=== PATIENT | male | born 1960 | race Caucasian/White ===

== ENCOUNTER 2019-08-29 00:39 | Inpatient (IN) | payer OTHER ==
[2019-08-29] VITALS (9 sets, daily range): BP systolic 122–150; BP diastolic 68–88
[~2019-08-29] VITALS: Ht 162.6 cm; Wt 74.4 kg
[2019-08-29 01:12] LABS: BASO % 0 % (0-3); EOS # 0.1 x10^3/uL (0.0-0.7); EOS % 1 % (0-3); HEMATOCRIT 43.5 % (39.0-53.0); HEMOGLOBIN 14.6 g/dL (13.0-17.5); LYMPH # 5.4 x10^3/uL (1.0-4.8); LYMPH % 56 % (24-48); MEAN CORPUSCULAR HEMOGLOBIN 34 pg (25-35); MEAN CORPUSCULAR HGB CONC 34 g/dL (31-37); MEAN CORPUSCULAR VOLUME 102 fL (79-100); MONO # 0.8 x10^3/uL (0.0-1.1); MONO % 9 % (0-9); NEUT # 3.3 x10^3/uL (1.8-7.7); NEUT % 34 % (31-73); PLATELET COUNT 302 x10^3/uL (140-400); RED BLOOD COUNT 4.28 x10^6/uL (4.30-5.70); RED CELL DISTRIBUTION WIDTH 13.2 % (11.5-14.5); WHITE BLOOD COUNT 9.7 x10^3/uL (4.0-11.0)
[2019-08-29 01:20] LABS: CALCIUM 8.5 mg/dL (8.5-10.1); POTASSIUM 3.8 mmol/L (3.5-5.1); PROTHROMBIN TIME PATIENT 13.8 SEC (11.7-14.0)
[2019-08-29 01:23] LABS: ACETAMIN < 2 mcg/ml (10-30); SALIC 3.5 mg/dL (2.8-20.0)
[2019-08-29 01:28] LABS: ALBUMIN 3.4 g/dL (3.4-5.0); ALBUMIN/GLOBULIN RATIO 0.8 (1.0-1.7); MAGNESIUM 1.5 mg/dL (1.8-2.4); TOTAL BILIRUBIN 0.3 mg/dL (0.2-1.0); TOTAL PROTEIN 7.5 g/dL (6.4-8.2)
[2019-08-29 01:33] LABS: CREATINE KINASE 63 U/L (39-308)
--- NOTE | 2019-08-29 01:49 | PHYS DOC ---
Past Medical History Past Medical History: Other Additional Past Medical Histor: HEP C Past Surgical History: No Surgical History Smoking: Cigarettes Alcohol Use: Heavy Drug Use: Marijuana Adult General Chief Complaint Chief Complaint: MECHANICAL FALL HPI HPI 59-year-old male presents via EMS with report of "slip and fall on ice "outside of his home just prior to arrival. Patient was "unable to get back up ". Patient reports he was helped by his roommate to noted abrasion to right forehead. Roommate was concerned and therefore called EMS. Patient does report to drinking 8 beers daily for several years. Reports last drank at 1800. Denies history of DTs. Reports unsure when last tetanus booster was. Patient also reports right sided chest wall pain since fall which is worse with deep inspiration and palpation of chest. Patient also reports daily suicidal ideation. Reports history of spouse recently passing away. Reports he drinks because it helps "make him want to live." Review of Systems Review of Systems Constitutional: Denies fever or chills Eyes: Denies redness or eye pain HENT: Denies nasal congestion or sore throat Respiratory: Denies cough or shortness of breath Cardiovascular: Denies chest pain or palpitations GI: Denies abdominal pain, nausea, or vomiting : Denies dysuria or hematuria Musculoskeletal: Denies back pain or joint pain Integument: Denies rash; reports abrasion Neurologic: Reports headache; denies focal weakness or sensory changes Psychiatric: Reports suicidal ideation and chronic EtOH abuse Complete systems were reviewed and found to be within normal limits, except as documented in this note. Current Medications Current Medications Current Medications Medications (Trade) Dose Ordered Sig/Nolan Start Time Stop Time Status Last Admin Dose Admin Lorazepam (Ativan Inj) 0.5 mg 1X ONCE 08/29/19 01:30 08/29/19 01:31 DC 08/29/19 02:57 0.5 MG Allergies Allergies Allergies Coded Allergies Type Severity Reaction Last Updated Verified acetaminophen Adverse Reaction Intermediate has hepatitis C 09/18/14 Yes Physical Exam Physical Exam Constitutional: Well developed, well nourished, non-toxic appearance HENT: Normocephalic, atraumatic, oropharynx moist Eyes: PERRL, EOMI, conjunctiva normal, no discharge, horizontal nystagmus noted Neck: Normal range of motion, no midline tenderness, supple Cardiovascular: Heart rate normal, regular rhythm Lungs & Thorax: Bilateral breath sounds clear to auscultation, no wheezing, right upper anterior and lateral chest wall tenderness Abdomen: Soft, no tenderness; pelvis stable and nontender Skin: Warm, dry, no erythema, no rash, abrasion to right forehead Back: No midline tenderness, no CVA tenderness Extremities: No tenderness, ROM intact, no edema Neurologic: Alert and oriented X 3, normal motor function, normal sensory function, no focal deficits noted, resting tremor noted to bilateral arms Psychologic: Affect flat, judgement abnormal, reports suicidal ideation Current Patient Data Vital Signs Vital Signs Date Time Temp Pulse Resp B/P (MAP) Pulse Ox O2 Delivery O2 Flow Rate FiO2 08/29/19 00:42 97.4 95 20 137/63 (87) 98 Room Air 97.4 Lab Values Laboratory Tests Test 08/29/19 00:45 White Blood Count 9.7 x10^3/uL (4.0-11.0) Red Blood Count 4.28 x10^6/uL (4.30-5.70) L Hemoglobin 14.6 g/dL (13.0-17.5) Hematocrit 43.5 % (39.0-53.0) Mean Corpuscular Volume 102 fL (79-100) H Mean Corpuscular Hemoglobin 34 pg (25-35) Mean Corpuscular Hemoglobin Concent 34 g/dL (31-37) Red Cell Distribution Width 13.2 % (11.5-14.5) Platelet Count 302 x10^3/uL (140-400) Neutrophils (%) (Auto) 34 % (31-73) Lymphocytes (%) (Auto) 56 % (24-48) H Monocytes (%) (Auto) 9 % (0-9) Eosinophils (%) (Auto) 1 % (0-3) Basophils (%) (Auto) 0 % (0-3) Neutrophils # (Auto) 3.3 x10^3/uL (1.8-7.7) Lymphocytes # (Auto) 5.4 x10^3/uL (1.0-4.8) H Monocytes # (Auto) 0.8 x10^3/uL (0.0-1.1) Eosinophils # (Auto) 0.1 x10^3/uL (0.0-0.7) Basophils # (Auto) 0.0 x10^3/uL (0.0-0.2) Segmented Neutrophils % 39 % (35-66) Band Neutrophils % 1 % (0-9) Lymphocytes % 51 % (24-48) H Atypical Lymphocytes % (Manual) 4 % (0-0) H Monocytes % 4 % (0-10) Eosinophils % 1 % (0-5) Platelet Estimate Adequate (ADEQUATE) Prothrombin Time 13.8 SEC (11.7-14.0) Prothrombin Time INR 1.1 (0.8-1.1) Sodium Level 141 mmol/L (136-145) Potassium Level 3.8 mmol/L (3.5-5.1) Chloride Level 101 mmol/L (98-107) Carbon Dioxide Level 27 mmol/L (21-32) Anion Gap 13 (6-14) Blood Urea Nitrogen 6 mg/dL (8-26) L Creatinine 1.0 mg/dL (0.7-1.3) Estimated GFR (Cockcroft-Gault) 76.0 BUN/Creatinine Ratio 6 (6-20) Glucose Level 110 mg/dL (70-99) H Calcium Level 8.5 mg/dL (8.5-10.1) Magnesium Level 1.5 mg/dL (1.8-2.4) L Total Bilirubin 0.3 mg/dL (0.2-1.0) Aspartate Amino Transferase (AST) 80 U/L (15-37) H Alanine Aminotransferase (ALT) 86 U/L (16-63) H Alkaline Phosphatase 60 U/L (46-116) Creatine Kinase 63 U/L (39-308) Creatine Kinase MB (Mass) 2.3 ng/mL (0.0-3.6) Creatine Kinase MB Relative Index % (0-4) Troponin I Quantitative < 0.017 ng/mL (0.000-0.055) TT-Vet-D-Type Natriuretic Peptide 313 pg/mL (0-124) H Total Protein 7.5 g/dL (6.4-8.2) Albumin 3.4 g/dL (3.4-5.0) Albumin/Globulin Ratio 0.8 (1.0-1.7) L Lipase 144 U/L (73-393) Salicylates Level 3.5 mg/dL (2.8-20.0) Salicylate Last Dose Date Unk Salicylate Last Dose Time Unk Acetaminophen Level < 2 mcg/ml (10-30) L Acetaminophen Last Dose Date Unk Acetaminophen Last Dose Time Unk Ethyl Alcohol Level 281 mg/dL (0-10) H Laboratory Tests 08/29/19 00:45 Laboratory Tests 08/29/19 00:45 EKG EKG @0216 Sinus tachycardia at 103bpm, NO ST elevation, frequent PVCs, QRS 76ms, QT/QTc 346/455ms Radiology/Procedures Radiology/Procedures PROCEDURE: CT HEAD AND CERVICAL SPINE WO CT HEAD AND CERVICAL SPINE WO Date: 08/29/2019 1:49 AM Clinical Indication: Scalp contusion, altered mental status, intoxicated Comparison: None. Technique: 5 mm axial tomographic images were obtained of the head without contrast. These were viewed on brain and bone windows. Noncontrast CT of the cervical spine was performed. Sagittal and coronal reformats were performed and evaluated. One or more of the following dose reduction techniques were utilized: Automated exposure control (AEC), Adjustment of mA and/or kV according to patient size, Use of iterative reconstruction technique such as ASiR, CT scan done according to ALARA and image gently/image wisely HEAD FINDINGS: Mild generalized cerebral and cerebellar volume loss. Mild nonspecific periventricular hypoattenuation, most commonly seen with chronic small vessel ischemic disease. No intra- or extra-axial mass or fluid collection. No acute hemorrhage. The ventricles are normal in size, shape, and morphology. The thomas-white matter junction is normal. The basilar cisterns are patent. The visualized paranasal sinuses are normal. The visualized portions of the orbits and globes are normal. The mastoid air cells are clear. No aggressive osseous lesion or fracture. CERVICAL SPINE FINDINGS: The cervical spine is normally aligned. No acute fracture. No aggressive lytic or blastic osseous lesions. Moderate multilevel degenerative disc space height loss. Multilevel mild spinal canal stenosis secondary to disc protrusions and marginal osteophytes. Multilevel moderate to severe neuroforaminal narrowing secondary to uncovertebral arthrosis. Multilevel mild and moderate facet arthrosis. The thyroid gland is normal. No cervical lymphadenopathy. Bilateral carotid atherosclerosis. The visualized aerodigestive tract is normal. The visualized portions of the lungs are clear. IMPRESSION: 1. No acute intracranial process. 2. No acute cervical spine fracture. Electronically signed by: Hardeep Bertrand MD (08/29/2019 2:27 AM) [facility] PROCEDURE: CT CHEST W/CONTRAST CT CHEST W/CONTRAST INDICATION: Fall, right sided chest pain. Comparison: None. TECHNIQUE: Following the uneventful administration of intravenous contrast, 75 cc Omnipaque 300, axial CT sections were obtained through the lungs and upper abdomen. Multiplanar reconstructions were obtained. RS compliance statement: One or more of the following individualized dose reduction techniques were utilized for this examination: 1. Automated exposure control 2. Adjustment of the mA and/or kV according to patient size 3. Use of iterative reconstruction technique FINDINGS: Lungs and Airways: No pulmonary mass or consolidation. No abnormality of the central airways. Pleura: The pleural spaces are normal. Heart and Mediastinum: The visualized thyroid is normal in size and attenuation. No axillary or supraclavicular lymphadenopathy. No mediastinal, hilar or retrocrural lymphadenopathy. Normal cardiac size. No pericardial effusion. Coronary artery atherosclerotic disease. The great vessels of the thorax are normal. Abdomen: Limited images through the upper abdomen show no abnormality of the visualized organs. Bones and Soft Tissues: Minimally displaced right anterolateral fourth rib fracture. Nondisplaced right 2nd, 3rd, 5th, 6th, and 7th rib fractures. IMPRESSION: 1. Minimally displaced right 4th rib fracture. Nondisplaced right 2nd, 3rd, 5th, 6th, and 7th rib fractures. No pneumothorax. 2. No major traumatic intrathoracic injury. Electronically signed by: Hardeep Bertrand MD (08/29/2019 2:42 AM) [facility] Course & Med Decision Making Course & Med Decision Making Pertinent Labs and Imaging studies reviewed. (See chart for details) Patient presents via EMS with history of chronic EtOH abuse. Patient was mec hanical fall on ice outside of his home prior to arrival. Patient did sustain a abrasion to his right forehead. Patient denied any loss of consciousness. Wound cleaned and dressed. Tetanus updated. EKG without signs of ischemia but notes frequent PVCs. Labs obtained and posted to chart. EtOH greater then 200. Patient did start to display some increased tremulousness. Ativan given. Hypomagnesemia addressed. Banana bag provided. Patient also complaining of right-sided chest pain. CT head/cervical spine without acute process. CT chest with signs of multiple rib fractures without pulmonary contusion. Patient does report some suicidal ideation. Given concern for chronic alcoholism and possible impending DTs patient requiring medical admission. Patient requiring admission for further evaluation and treatment. Discussed with Dr. Angel (hospitalist) who is in agreement with admission. Discussed findings and plan with patient, who acknowledges understanding and agreement. Dragon Disclaimer Dragon Disclaimer This electronic medical record was generated, in whole or in part, using a voice recognition dictation system. Departure Departure Impression: Primary Impression: Suicidal ideation Additional Impressions: Alcohol abuse Chest pain Head contusion Rib fracture Disposition: 09 ADMITTED INPATIENT Admitting Physician: NADEEM Hein) Condition: STABLE Referrals: NO PCP (PCP) Problem Qualifiers Additional Impressions: Chest pain Chest pain type: unspecified Qualified Codes: R07.9 - Chest pain, unspecified Head contusion Encounter type: initial encounter Contusion of head detail: scalp Qualified Codes: S00.03XA - Contusion of scalp, initial encounter Rib fracture Encounter type: initial encounter Rib fracture type: multiple ribs Frac ture type: closed Laterality: right Qualified Codes: S22.41XA - Multiple fractures of ribs, right side, initial encounter for closed fracture SANGEETA SANDERSON DO Aug 29, 2019 01:49
[2019-08-29 01:53] LABS: % ATYL 4 % (0-0); % BANDS 1 % (0-9); % EOS 1 % (0-5); % LYMPHS 51 % (24-48); % MONOS 4 % (0-10); % SEGS 39 % (35-66); PLT ESTIMATE ADEQUATE (ADEQUATE)
[2019-08-29] MEDS ORDERED: MAGNESIUM SULFATE 2GM 50 ML IV ONE (02:00)
[2019-08-29] MEDS ORDERED: MULTIVIT INFUSN,ADULT 4,VIT K 10 ML, THIAMINE INJ 100 MG, FOLIC ACID INJ 1 MG in IV NOR... IV ONE (02:00)
[2019-08-29] MEDS ORDERED: CONTRAST GIVEN. MC PRN (02:15)
[2019-08-29] MEDS ORDERED: ONDANSETRON PF 4 MG/2 ML VIAL. IV PRN (02:15)
[2019-08-29] MEDS ORDERED: DIPHTH,PERTUSS(ACELL),TET TOX 0.5 ML DISP.SYRIN. VAX IM ONE (02:30)
[2019-08-29] MEDS ORDERED: IOHEXOL 300 MG/ML 100ML VIAL. IV ONE (02:30)
--- NOTE | 2019-08-29 02:30 | RAD ---
CT HEAD AND CERVICAL SPINE WO Date: 08/29/2019 1:49 AM Clinical Indication: Scalp contusion, altered mental status, intoxicated Comparison: None. Technique: 5 mm axial tomographic images were obtained of the head without contrast. These were viewed on brain and bone windows. Noncontrast CT of the cervical spine was performed. Sagittal and coronal reformats were performed and evaluated. One or more of the following dose reduction techniques were utilized: Automated exposure control (AEC), Adjustment of mA and/or kV according to patient size, Use of iterative reconstruction technique such as ASiR, CT scan done according to ALARA and image gently/image wisely HEAD FINDINGS: Mild generalized cerebral and cerebellar volume loss. Mild nonspecific periventricular hypoattenuation, most commonly seen with chronic small vessel ischemic disease. No intra- or extra-axial mass or fluid collection. No acute hemorrhage. The ventricles are normal in size, shape, and morphology. The thomas-white matter junction is normal. The basilar cisterns are patent. The visualized paranasal sinuses are normal. The visualized portions of the orbits and globes are normal. The mastoid air cells are clear. No aggressive osseous lesion or fracture. CERVICAL SPINE FINDINGS: The cervical spine is normally aligned. No acute fracture. No aggressive lytic or blastic osseous lesions. Moderate multilevel degenerative disc space height loss. Multilevel mild spinal canal stenosis secondary to disc protrusions and marginal osteophytes. Multilevel moderate to severe neuroforaminal narrowing secondary to uncovertebral arthrosis. Multilevel mild and moderate facet arthrosis. The thyroid gland is normal. No cervical lymphadenopathy. Bilateral carotid atherosclerosis. The visualized aerodigestive tract is normal. The visualized portions of the lungs are clear. IMPRESSION: 1. No acute intracranial process. 2. No acute cervical spine fracture. Electronically signed by: Hardeep Bertrand MD (08/29/2019 2:27 AM) [facility]
--- NOTE | 2019-08-29 02:45 | RAD ---
CT CHEST W/CONTRAST INDICATION: Fall, right sided chest pain. Comparison: None. TECHNIQUE: Following the uneventful administration of intravenous contrast, 75 cc Omnipaque 300, axial CT sections were obtained through the lungs and upper abdomen. Multiplanar reconstructions were obtained. RS compliance statement: One or more of the following individualized dose reduction techniques were utilized for this examination: 1. Automated exposure control 2. Adjustment of the mA and/or kV according to patient size 3. Use of iterative reconstruction technique FINDINGS: Lungs and Airways: No pulmonary mass or consolidation. No abnormality of the central airways. Pleura: The pleural spaces are normal. Heart and Mediastinum: The visualized thyroid is normal in size and attenuation. No axillary or supraclavicular lymphadenopathy. No mediastinal, hilar or retrocrural lymphadenopathy. Normal cardiac size. No pericardial effusion. Coronary artery atherosclerotic disease. The great vessels of the thorax are normal. Abdomen: Limited images through the upper abdomen show no abnormality of the visualized organs. Bones and Soft Tissues: Minimally displaced right anterolateral fourth rib fracture. Nondisplaced right 2nd, 3rd, 5th, 6th, and 7th rib fractures. IMPRESSION: 1. Minimally displaced right 4th rib fracture. Nondisplaced right 2nd, 3rd, 5th, 6th, and 7th rib fractures. No pneumothorax. 2. No major traumatic intrathoracic injury. Electronically signed by: Hardeep Bertrand MD (08/29/2019 2:42 AM) [facility]
--- NOTE | 2019-08-29 03:15 | NUR ---
The patient, HILARIA AYON, 59 y/o, M admitted by NICANOR MEJIA MD, was given written information regarding hospital policies, unit procedures and contact persons. Valuables were checked and left in the room.
[2019-08-29] MEDS ORDERED: oxyCODONE/APAP 5/325 1 TAB TABLET PO PRN (05:30)
--- NOTE | 2019-08-29 06:34 | EKG ---
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
[2019-08-29] MEDS: oxyCODONE IR 5 MG TABLET PO PRN ×3 (08:45→21:38)
--- NOTE | 2019-08-29 10:19 | PDOC1 ---
History and Physical Date of Admission Date of Admission DATE: 08/29/19 TIME: 10:18 Identification/Chief Complaint Chief Complaint seen in er , 59-year-old male presents via EMS with report of "slip and fall on ice "outside of his home just prior to arrival. Patient was "unable to get back up ". Patient reports he was helped by his roommate to noted abrasion to right forehead. Roommate was concerned and therefore called EMS. Patient does report to drinking 8 beers daily for several years. Reports last drank at 1800. Denies history of DTs. Reports unsure when last tetanus booster was. Patient also reports right sided chest wall pain since fall which is worse with deep inspir ation and palpation of chest reports daily suicidal ideation. Reports history of spouse recently passing away. Reports he drinks because it helps "make him want to live." PAT TEAM HAS VISITED, PT NOT ACTIVELY SUICIDAL Past Medical History Past Medical History Past Medical History Past Medical History Past Medical History: Other Additional Past Medical Histor: HEP C Past Surgical History: No Surgical History Smoking: Cigarettes Alcohol Use: Heavy Drug Use: Marijuana fhx COPD Psych: Addictions Musculoskeletal: Weakness Infectious disease: No pertinent hx Family History Family History: Alcohol Abuse Social History Smoke: <1 pack per day ALCOHOL: heavy Drugs: None Current Problem List Problem List Problems Medical Problems: (1) Alcohol abuse Status: Acute (2) Chest pain Status: Acute (3) Head contusion Status: Acute (4) Rib fracture Status: Acute (5) Suicidal ideation Status: Acute Current Medications Current Medications Current Medications Lorazepam (Ativan Inj) 2 mg STK-MED ONCE .ROUTE ; Start 08/29/19 at 00:55; Stop 08/29/19 at 00:55; Status DC Multivitamins 10 ml/Thiamine HCl 100 mg/Folic Acid 1 mg/Sodium Chloride 1,011.2 ml @ 1,000.088 mls/hr 1X ONCE IV Last administered on 08/29/19at 01:56; Start 08/29/19 at 02:00; Stop 08/29/19 at 03:00; Status DC Lorazepam (Ativan Inj) 0.5 mg 1X ONCE IVP Last administered on 08/29/19at 01:45; Start 08/29/19 at 01:30; Stop 08/29/19 at 01:31; Status DC Lorazepam (Ativan Inj) 0.5 mg 1X ONCE IVP Last administered on 08/29/19at 02:57; Start 08/29/19 at 01:30; Stop 08/29/19 at 01:31; Status DC Magnesium Sulfate 50 ml @ 25 mls/hr 1X ONCE IV Last administered on 08/29/19at 03:00; Start 08/29/19 at 02:00; Stop 08/29/19 at 03:59; Status DC Diphtheria/ Tetanus/Acell Pertussis (Boostrix) 0.5 ml ONCE ONCE VAX IM Last administered on 08/29/19at 02:54; Start 08/29/19 at 02:30; Stop 08/29/19 at 02:31; Status DC Iohexol (Omnipaque 300 Mg/ml) 75 ml 1X ONCE IV ; Start 08/29/19 at 02:30; Stop 08/29/19 at 02:31; Status DC Info (CONTRAST GIVEN -- Rx MONITORING) 1 each PRN DAILY PRN MC SEE COMMENTS; Start 08/29/19 at 02:15; Stop 08/31/19 at 02:14 Ondansetron HCl (Zofran) 4 mg PRN Q8HRS PRN IV NAUSEA/VOMITING 1ST CHOICE; Start 08/29/19 at 02:15; Stop 08/30/19 at 02:14 Lorazepam (Ativan Inj) 1 mg PRN Q1HR PRN IV For CIWA 8-14; Start 08/29/19 at 02:15 Lorazepam (Ativan Inj) 2 mg PRN Q1HR PRN IV For CIWA 15 or greater Last administered on 08/29/19at 06:42; Start 08/29/19 at 02:15 Oxycodone/ Acetaminophen (Percocet 5/325) 1 tab PRN Q4HRS PRN PO PAIN; Start 08/29/19 at 05:30; Status Cancel Oxycodone HCl (Roxicodone) 5 mg PRN Q6HRS PRN PO PAIN Last administered on 08/29/19at 08:45; Start 08/29/19 at 08:30 Active Scripts Active Reported No Known Medications Prior To Admisstion (Info) Each 1 Each MC Allergies Allergies: Coded Allergies: acetaminophen (Verified Adverse Reaction, Intermediate, has hepatitis C, 09/18/14) ROS Review of System Review of Systems Review of Systems Constitutional: Denies fever or chills Eyes: Denies redness or eye pain HENT: Denies nasal congestion or sore throat Respiratory: Denies cough or shortness of breath Cardiovascular: chest WALL pain GI: Denies abdominal pain, nausea, or vomiting : Denies dysuria or hematuria Musculoskeletal: Denies back pain or joint pain Integument: Denies rash; reports abrasion Neurologic: Reports headache; denies focal weakness or sensory changes Psychiatric: Reports suicidal ideation and chronic EtOH abuse 14 PT systems were reviewed and found to be within normal limits, except as documented Gastrointestinal: No Nausea, No Vomiting, No Abdominal Pain, No Diarrhea, No Constipation, No Melena, No Hematochezia, No Other Physical Exam Physical Exam Physical Exam Physical Exam Constitutional: Well developed, well nourished, non-toxic appearance HENT: Normocephalic, atraumatic, oropharynx moist Eyes: PERRL, EOMI, conjunctiva normal, no discharge, horizontal nystagmus noted Neck: Normal range of motion, no midline tenderness, supple Cardiovascular: Heart rate normal, regular rhythm Lungs & Thorax: Bilateral breath sounds clear to auscultation, no wheezing,/// right upper anterior and lateral chest wall tenderness Abdomen: Soft, no tenderness; pelvis stable and nontender Skin: Warm, dry, no erythema, no rash, abrasion to right forehead Back: No midline tenderness, no CVA tenderness Extremities: No tenderness, ROM intact, no edema Neurologic: Alert and oriented X 3, normal motor function, normal sensory function, no focal deficits noted, resting tremor noted to bilateral arms Psychologic: Affect flat, judgement abnormal, reports suicidal ideation LAST NIGHT, NOT NOW General: Alert, Oriented X3, Cooperative HEENT: EOMI, Mucous membr. moist/pink Lungs: Clear to auscultation Heart: RRR Rectal Exam: not examined PELVIC: Examination not indicated Extremities: No cyanosis Neuro: Cranial nerves 3-12 NL Vitals Vitals Vital Signs Date Time Temp Pulse Resp B/P (MAP) Pulse Ox O2 Delivery O2 Flow Rate FiO2 08/29/19 08:45 96 Room Air 08/29/19 06:55 92 18 122/71 (88) 08/29/19 04:58 98.1 98.1 Labs Labs Laboratory Tests Test 08/29/19 00:45 08/29/19 05:12 08/29/19 08:00 White Blood Count 9.7 x10^3/uL (4.0-11.0) Red Blood Count 4.28 x10^6/uL (4.30-5.70) Hemoglobin 14.6 g/dL (13.0-17.5) Hematocrit 43.5 % (39.0-53.0) Mean Corpuscular Volume 102 fL (79-100) Mean Corpuscular Hemoglobin 34 pg (25-35) Mean Corpuscular Hemoglobin Concent 34 g/dL (31-37) Red Cell Distribution Width 13.2 % (11.5-14.5) Platelet Count 302 x10^3/uL (140-400) Neutrophils (%) (Auto) 34 % (31-73) Lymphocytes (%) (Auto) 56 % (24-48) Monocytes (%) (Auto) 9 % (0-9) Eosinophils (%) (Auto) 1 % (0-3) Basophils (%) (Auto) 0 % (0-3) Neutrophils # (Auto) 3.3 x10^3/uL (1.8-7.7) Lymphocytes # (Auto) 5.4 x10^3/uL (1.0-4.8) Monocytes # (Auto) 0.8 x10^3/uL (0.0-1.1) Eosinophils # (Auto) 0.1 x10^3/uL (0.0-0.7) Basophils # (Auto) 0.0 x10^3/uL (0.0-0.2) Segmented Neutrophils % 39 % (35-66) Band Neutrophils % 1 % (0-9) Lymphocytes % 51 % (24-48) Atypical Lymphocytes % (Manual) 4 % (0-0) Monocytes % 4 % (0-10) Eosinophils % 1 % (0-5) Platelet Estimate Adequate (ADEQUATE) Prothrombin Time 13.8 SEC (11.7-14.0) Prothromb Time International Ratio 1.1 (0.8-1.1) Sodium Level 141 mmol/L (136-145) Potassium Level 3.8 mmol/L (3.5-5.1) Chloride Level 101 mmol/L (98-107) Carbon Dioxide Level 27 mmol/L (21-32) Anion Gap 13 (6-14) Blood Urea Nitrogen 6 mg/dL (8-26) Creatinine 1.0 mg/dL (0.7-1.3) Estimated GFR (Cockcroft-Gault) 76.0 BUN/Creatinine Ratio 6 (6-20) Glucose Level 110 mg/dL (70-99) Calcium Level 8.5 mg/dL (8.5-10.1) Magnesium Level 1.5 mg/dL (1.8-2.4) Total Bilirubin 0.3 mg/dL (0.2-1.0) Aspartate Amino Transf (AST/SGOT) 80 U/L (15-37) Alanine Aminotransferase (ALT/SGPT) 86 U/L (16-63) Alkaline Phosphatase 60 U/L (46-116) Creatine Kinase 63 U/L (39-308) Creatine Kinase MB (Mass) 2.3 ng/mL (0.0-3.6) Creatine Kinase MB Relative Index % (0-4) Troponin I Quantitative < 0.017 ng/mL (0.000-0.055) < 0.017 ng/mL (0.000-0.055) < 0.017 ng/mL (0.000-0.055) UM-Ars-A-Type Natriuretic Peptide 313 pg/mL (0-124) Total Protein 7.5 g/dL (6.4-8.2) Albumin 3.4 g/dL (3.4-5.0) Albumin/Globulin Ratio 0.8 (1.0-1.7) Lipase 144 U/L (73-393) Salicylates Level 3.5 mg/dL (2.8-20.0) Salicylate Last Dose Date Unk Salicylate Last Dose Time Unk Acetaminophen Level < 2 mcg/ml (10-30) Acetaminophen Last Dose Date Unk Acetaminophen Last Dose Time Unk Ethyl Alcohol Level 281 mg/dL (0-10) Laboratory Tests Test 08/29/19 00:45 08/29/19 05:12 08/29/19 08:00 White Blood Count 9.7 x10^3/uL (4.0-11.0) Red Blood Count 4.28 x10^6/uL (4.30-5.70) Hemoglobin 14.6 g/dL (13.0-17.5) Hematocrit 43.5 % (39.0-53.0) Mean Corpuscular Volume 102 fL (79-100) Mean Corpuscular Hemoglobin 34 pg (25-35) Mean Corpuscular Hemoglobin Concent 34 g/dL (31-37) Red Cell Distribution Width 13.2 % (11.5-14.5) Platelet Count 302 x10^3/uL (140-400) Neutrophils (%) (Auto) 34 % (31-73) Lymphocytes (%) (Auto) 56 % (24-48) Monocytes (%) (Auto) 9 % (0-9) Eosinophils (%) (Auto) 1 % (0-3) Basophils (%) (Auto) 0 % (0-3) Neutrophils # (Auto) 3.3 x10^3/uL (1.8-7.7) Lymphocytes # (Auto) 5.4 x10^3/uL (1.0-4.8) Monocytes # (Auto) 0.8 x10^3/uL (0.0-1.1) Eosinophils # (Auto) 0.1 x10^3/uL (0.0-0.7) Basophils # (Auto) 0.0 x10^3/uL (0.0-0.2) Segmented Neutrophils % 39 % (35-66) Band Neutrophils % 1 % (0-9) Lymphocytes % 51 % (24-48) Atypical Lymphocytes % (Manual) 4 % (0-0) Monocytes % 4 % (0-10) Eosinophils % 1 % (0-5) Platelet Estimate Adequate (ADEQUATE) Prothrombin Time 13.8 SEC (11.7-14.0) Prothromb Time International Ratio 1.1 (0.8-1.1) Sodium Level 141 mmol/L (136-145) Potassium Level 3.8 mmol/L (3.5-5.1) Chloride Level 101 mmol/L (98-107) Carbon Dioxide Level 27 mmol/L (21-32) Anion Gap 13 (6-14) Blood Urea Nitrogen 6 mg/dL (8-26) Creatinine 1.0 mg/dL (0.7-1.3) Estimated GFR (Cockcroft-Gault) 76.0 BUN/Creatinine Ratio 6 (6-20) Glucose Level 110 mg/dL (70-99) Calcium Level 8.5 mg/dL (8.5-10.1) Magnesium Level 1.5 mg/dL (1.8-2.4) Total Bilirubin 0.3 mg/dL (0.2-1.0) Aspartate Amino Transf (AST/SGOT) 80 U/L (15-37) Alanine Aminotransferase (ALT/SGPT) 86 U/L (16-63) Alkaline Phosphatase 60 U/L (46-116) Creatine Kinase 63 U/L (39-308) Creatine Kinase MB (Mass) 2.3 ng/mL (0.0-3.6) Creatine Kinase MB Relative Index % (0-4) Troponin I Quantitative < 0.017 ng/mL (0.000-0.055) < 0.017 ng/mL (0.000-0.055) < 0.017 ng/mL (0.000-0.055) CV-Uqx-Y-Type Natriuretic Peptide 313 pg/mL (0-124) Total Protein 7.5 g/dL (6.4-8.2) Albumin 3.4 g/dL (3.4-5.0) Albumin/Globulin Ratio 0.8 (1.0-1.7) Lipase 144 U/L (73-393) Salicylates Level 3.5 mg/dL (2.8-20.0) Salicylate Last Dose Date Unk Salicylate Last Dose Time Unk Acetaminophen Level < 2 mcg/ml (10-30) Acetaminophen Last Dose Date Unk Acetaminophen Last Dose Time Unk Ethyl Alcohol Level 281 mg/dL (0-10) Images Images CT CHEST W/CONTRAST INDICATION: Fall, right sided chest pain. Comparison: None. TECHNIQUE: Following the uneventful administration of intravenous contrast, 75 cc Omnipaque 300, axial CT sections were obtained through the lungs and upper abdomen. Multiplanar reconstructions were obtained. PQRS compliance statement: One or more of the following individualized dose reduction techniques were utilized for this examination: 1. Automated exposure control 2. Adjustment of the mA and/or kV according to patient size 3. Use of iterative reconstruction technique FINDINGS: Lungs and Airways: No pulmonary mass or consolidation. No abnormality of the central airways. Pleura: The pleural spaces are normal. Heart and Mediastinum: The visualized thyroid is normal in size and attenuation. No axillary or supraclavicular lymphadenopathy. No mediastinal, hilar or retrocrural lymphadenopathy. Normal cardiac size. No pericardial effusion. Coronary artery atherosclerotic disease. The great vessels of the thorax are normal. Abdomen: Limited images through the upper abdomen show no abnormality of the visualized organs. Bones and Soft Tissues: Minimally displaced right anterolateral fourth rib fracture. Nondisplaced right 2nd, 3rd, 5th, 6th, and 7th rib fractures. IMPRESSION: 1. Minimally displaced right 4th rib fracture. Nondisplaced right 2nd, 3rd, 5th, 6th, and 7th rib fractures. No pneumothorax. 2. No major traumatic intrathoracic injury. Electronically signed by: Dacia Lira MD (08/29/2019 2:42 AM) [facility] [id number] DICTATED and SIGNED BY: DACIA LIRA MD DATE: 08/29/19 0242 VTE Prophylaxis Ordered VTE Prophylaxis Devices: No VTE Pharmacological Prophylaxi: Yes Assessment/Plan Assessment/Plan Impression: Suicidal ideation MAJOR DEPRESSION Alcohol abuse, SEVERE Chest pain Head contusion Rib fracture Minimally displaced right 4th rib fracture. Nondisplaced right 2nd, 3rd, 5th, 6th, and 7th rib fractures. No pneumothorax. No major traumatic intrathoracic injury. ADMITTED TELE ALCOHOL WITHDRAwAL PRECAUTIONS pat team pulm consult PAIN CONTROL DVT PROPHYLAXIS neurology consult 66 MIN PT EXAM, CHART REVIEW, > 50% of time spent with exam, chart review, pt care coordination TOMASA GARNER MD Aug 29, 2019 10:19
--- NOTE | 2019-08-29 10:53 | NUR ---
SW following pt for dc planning. Chart reviewed and discussed with RN. Pt is 1:1 for SI and has hx of ETOH use. Alexander will come in to see pt today. SVITLANA will continue to follow.
[2019-08-29] MEDS ORDERED: LORazepam 1 MG TABLET PO PRN ×2 (11:15)
[2019-08-29] MEDS ORDERED: cloNIDine HCL 0.1 MG TABLET PO PRN (11:15)
--- NOTE | 2019-08-29 13:32 | NUR ---
Wound Care Wound care consult for forehead abrasion. Pt has open abrasion to right forehead from a fall. Cleansed wound and surrounding hair of dried blood. Applied A&D ointment and recommend ATIF BID. No other wounds noted, pt unable to turn due to rib pain for inspection of back side. WC will continue to follow for possible changes.
--- NOTE | 2019-08-29 14:07 | NUR ---
Pt seen by PAT team and is already service connected with [facility]. Pt reports he has had SI with no plan for a long time. Pt also lost his in February and is going through grief. Pt denies SI with plan. Pt does not qualify for OP CM services at [facility] as he does not have SPMI but is able to get therapy services. Pt is provided with contact information to set up his visit. Pt is also provided with [facility] for ETOH use. Pt declined to make phone calls at this time but has agreed to follow up with [facility] upon dc. Pt also plans to see his PCP regarding possible medication adjustment. Per Alexander pt does not need to be 1:1. Discussed with RN.
[2019-08-29 14:57] LABS: BARBITURATES NEG (NEG); BENZODIAZEPINES POS (NEG); CANNABINOIDS NEG (NEG); COCAINE NEG (NEG); METHADONE NEG (NEG); OPIATES NEG (NEG); PHENCYCLIDINE NEG (NEG)
[2019-08-29 14:59] LABS: AMPHETAMINE/METHAMPHETAMINE NEG (NEG)
[2019-08-29 15:01] LABS: BILIRUBIN,URINE NEGATIVE (NEG); CLARITY,URINE CLEAR; COLOR,URINE YELLOW; NITRITE,URINE NEGATIVE (NEG); PH,URINE 5.5; PROTEIN,URINE NEGATIVE (NEG-TRACE); UROBILINOGEN,URINE 0.2 mg/dL (0.2 mg/dL)
[2019-08-29 15:13] LABS: BACTERIA,URINE 0 /HPF (0-FEW); RBC,URINE 0 /HPF (0-2); SQUAMOUS EPITHELIAL CELL,UR OCC /LPF
[2019-08-29] MEDS: NEOMY/BACITR/POLYMYXIN OINT PACKET. TP SCH ×2 (15:24→20:29)
[2019-08-29] MEDS ORDERED: VENL75TA PO (16:42)
[2019-08-29] MEDS ORDERED: GABA300C18 PO (16:42)
[2019-08-29] MEDS ORDERED: LORA2ORA2 PO (16:42)
[2019-08-29] MEDS ORDERED: PROP10TA PO (16:42)
[2019-08-29] MEDS ORDERED: AMLO5TAB10 PO (16:42)
[2019-08-29] MEDS ORDERED: PANT40TA77 PO (16:42)
[2019-08-29] MEDS ORDERED: TRAZ-86 PO (16:42)
[2019-08-29] MEDS ORDERED: LORazepam INTENSOL 2 MG/ML ORAL.CONC PO PRN (16:45)
[2019-08-29] MEDS: PANTOPRAZOLE 40 MG TABLET.DR. PO SCH (17:56)
[2019-08-29] MEDS: GABAPENTIN 300 MG CAPSULE. PO SCH ×2 (17:56→20:29)
[2019-08-29] MEDS: traZODone 100 MG TABLET. PO SCH (20:29)
[2019-08-29] MEDS: PROPRANOLOL 10 MG TABLET. PO SCH (20:29)
[2019-08-29 22:01] LABS: BARBITURATES NEG (NEG); BENZODIAZEPINES POS (NEG); CANNABINOIDS NEG (NEG); COCAINE NEG (NEG); METHADONE NEG (NEG); OPIATES NEG (NEG); PHENCYCLIDINE NEG (NEG)
[2019-08-29 22:14] LABS: AMPHETAMINE/METHAMPHETAMINE NEG (NEG)
[2019-08-30] VITALS (8 sets, daily range): BP systolic 94–172; BP diastolic 63–87
[2019-08-30] MEDS ORDERED: IBUPROFEN 400 MG TABLET. PO ONE (03:38)
[2019-08-30] MEDS: IBUPROFEN 400 MG TABLET. PO PRN (03:43)
[2019-08-30] MEDS: oxyCODONE IR 5 MG TABLET PO PRN ×2 (03:43→10:07)
[2019-08-30] MEDS: PANTOPRAZOLE 40 MG TABLET.DR. PO SCH (04:41)
[2019-08-30] MEDS ORDERED: HALOPERIDOL 5 MG TABLET. PO PRN (04:45)
[2019-08-30] MEDS ORDERED: HALOPERIDOL 5 MG TABLET. PO ONE (05:00)
[2019-08-30] MEDS: MULTIVIT INFUSN,ADULT 4,VIT K 10 ML, THIAMINE INJ 100 MG, FOLIC ACID INJ 1 MG in IV NOR... IV SCH (08:45)
[2019-08-30] MEDS: GABAPENTIN 300 MG CAPSULE. PO SCH ×4 (10:07→19:54)
[2019-08-30] MEDS: PROPRANOLOL 10 MG TABLET. PO SCH ×3 (10:07→19:51)
[2019-08-30] MEDS: VENLAFAXINE 75 MG TABLET. PO SCH (10:07)
[2019-08-30] MEDS: NEOMY/BACITR/POLYMYXIN OINT PACKET. TP SCH ×2 (10:08→19:51)
[2019-08-30] MEDS: amLODIPine BESYLATE 5 MG TABLET PO SCH (10:08)
--- NOTE | 2019-08-30 11:10 | PDOC ---
PROGRESS NOTES History of Present Illness History of Present Illness VTE Prophylaxis Ordered VTE Prophylaxis Devices: No VTE Pharmacological Prophylaxi: Yes Assessment/Plan Assessment/Plan Impression: Suicidal ideation MAJOR DEPRESSION Alcohol abuse, SEVERE Chest pain DUE TO RIB FX Head contusion Rib fracture Minimally displaced right 4th rib fracture. Nondisplaced right 2nd, 3rd, 5th, 6th, and 7th rib fractures. No pneumothorax. No major traumatic intrathoracic injury. LABILE HTN ADMITTED TELE ALCOHOL WITHDRAwAL PRECAUTIONS pat team pulm consult PAIN CONTROL DVT PROPHYLAXIS neurology consult NORVASC 5 MG PO DAILY 29 MIN PT EXAM, CHART REVIEW, > 50% of time spent with exam, chart review, pt care coordination Vitals Vitals Vital Signs Date Time Temp Pulse Resp B/P (MAP) Pulse Ox O2 Delivery O2 Flow Rate FiO2 08/30/19 11:02 97.4 98 18 172/87 (115) 98 Room Air 97.4 Physical Exam General: Alert, Oriented X3, Cooperative, No acute distress Heart: Regular rate, Normal S1 Lungs: Clear Extremities: No cyanosis Labs LABS Laboratory Tests Test 08/29/19 13:30 08/29/19 19:30 Urine Color Yellow Urine Clarity Clear Urine pH 5.5 Urine Specific [place] 1.020 Urine Protein Negative mg/dL (NEG-TRACE) Urine Glucose (UA) Negative mg/dL (NEG) Urine Ketones (Stick) Negative mg/dL (NEG) Urine Blood Negative (NEG) Urine Nitrite Negative (NEG) Urine Bilirubin Negative (NEG) Urine Urobilinogen Dipstick 0.2 mg/dL (0.2 mg/dL) Urine Leukocyte Esterase Trace (NEG) Urine RBC 0 /HPF (0-2) Urine WBC 1-4 /HPF (0-4) Urine Squamous Epithelial Cells Occ /LPF Urine Bacteria 0 /HPF (0-FEW) Urine Opiates Screen Neg (NEG) Neg (NEG) Urine Methadone Screen Neg (NEG) Neg (NEG) Urine Barbiturates Neg (NEG) Neg (NEG) Urine Phencyclidine Screen Neg (NEG) Neg (NEG) Urine Amphetamine/Methamphetamine Neg (NEG) Neg (NEG) Urine Benzodiazepines Screen Pos (NEG) Pos (NEG) Urine Cocaine Screen Neg (NEG) Neg (NEG) Urine Cannabinoids Screen Neg (NEG) Neg (NEG) Urine Ethyl Alcohol Pos (NEG) Pos (NEG) Assessment and Plan Assessmemt and Plan Problems Medical Problems: (1) Alcohol abuse Status: Acute (2) Chest pain Status: Acute (3) Head contusion Status: Acute (4) Rib fracture Status: Acute (5) Suicidal ideation Status: Acute Comment Review of Relevant I have reviewed the following items kyler (where applicable) has been applied. Labs Laboratory Tests Test 08/29/19 00:45 08/29/19 05:12 08/29/19 08:00 08/29/19 13:30 White Blood Count 9.7 x10^3/uL (4.0-11.0) Red Blood Count 4.28 x10^6/uL (4.30-5.70) Hemoglobin 14.6 g/dL (13.0-17.5) Hematocrit 43.5 % (39.0-53.0) Mean Corpuscular Volume 102 fL (79-100) Mean Corpuscular Hemoglobin 34 pg (25-35) Mean Corpuscular Hemoglobin Concent 34 g/dL (31-37) Red Cell Distribution Width 13.2 % (11.5-14.5) Platelet Count 302 x10^3/uL (140-400) Neutrophils (%) (Auto) 34 % (31-73) Lymphocytes (%) (Auto) 56 % (24-48) Monocytes (%) (Auto) 9 % (0-9) Eosinophils (%) (Auto) 1 % (0-3) Basophils (%) (Auto) 0 % (0-3) Neutrophils # (Auto) 3.3 x10^3/uL (1.8-7.7) Lymphocytes # (Auto) 5.4 x10^3/uL (1.0-4.8) Monocytes # (Auto) 0.8 x10^3/uL (0.0-1.1) Eosinophils # (Auto) 0.1 x10^3/uL (0.0-0.7) Basophils # (Auto) 0.0 x10^3/uL (0.0-0.2) Segmented Neutrophils % 39 % (35-66) Band Neutrophils % 1 % (0-9) Lymphocytes % 51 % (24-48) Atypical Lymphocytes % (Manual) 4 % (0-0) Monocytes % 4 % (0-10) Eosinophils % 1 % (0-5) Platelet Estimate Adequate (ADEQUATE) Prothrombin Time 13.8 SEC (11.7-14.0) Prothromb Time International Ratio 1.1 (0.8-1.1) Sodium Level 141 mmol/L (136-145) Potassium Level 3.8 mmol/L (3.5-5.1) Chloride Level 101 mmol/L (98-107) Carbon Dioxide Level 27 mmol/L (21-32) Anion Gap 13 (6-14) Blood Urea Nitrogen 6 mg/dL (8-26) Creatinine 1.0 mg/dL (0.7-1.3) Estimated GFR (Cockcroft-Gault) 76.0 BUN/Creatinine Ratio 6 (6-20) Glucose Level 110 mg/dL (70-99) Calcium Level 8.5 mg/dL (8.5-10.1) Magnesium Level 1.5 mg/dL (1.8-2.4) Total Bilirubin 0.3 mg/dL (0.2-1.0) Aspartate Amino Transf (AST/SGOT) 80 U/L (15-37) Alanine Aminotransferase (ALT/SGPT) 86 U/L (16-63) Alkaline Phosphatase 60 U/L (46-116) Creatine Kinase 63 U/L (39-308) Creatine Kinase MB (Mass) 2.3 ng/mL (0.0-3.6) Creatine Kinase MB Relative Index % (0-4) Troponin I Quantitative < 0.017 ng/mL (0.000-0.055) < 0.017 ng/mL (0.000-0.055) < 0.017 ng/mL (0.000-0.055) [id number] Natriuretic Peptide 313 pg/mL (0-124) Total Protein 7.5 g/dL (6.4-8.2) Albumin 3.4 g/dL (3.4-5.0) Albumin/Globulin Ratio 0.8 (1.0-1.7) Lipase 144 U/L (73-393) Salicylates Level 3.5 mg/dL (2.8-20.0) Salicylate Last Dose Date Unk Salicylate Last Dose Time Unk Acetaminophen Level < 2 mcg/ml (10-30) Acetaminophen Last Dose Date Unk Acetaminophen Last Dose Time Unk Ethyl Alcohol Level 281 mg/dL (0-10) Urine Color Yellow Urine Clarity Clear Urine pH 5.5 Urine Specific [place] 1.020 Urine Protein Negative mg/dL (NEG-TRACE) Urine Glucose (UA) Negative mg/dL (NEG) Urine Ketones (Stick) Negative mg/dL (NEG) Urine Blood Negative (NEG) Urine Nitrite Negative (NEG) Urine Bilirubin Negative (NEG) Urine Urobilinogen Dipstick 0.2 mg/dL (0.2 mg/dL) Urine Leukocyte Esterase Trace (NEG) Urine RBC 0 /HPF (0-2) Urine WBC 1-4 /HPF (0-4) Urine Squamous Epithelial Cells Occ /LPF Urine Bacteria 0 /HPF (0-FEW) Urine Opiates Screen Neg (NEG) Urine Methadone Screen Neg (NEG) Urine Barbiturates Neg (NEG) Urine Phencyclidine Screen Neg (NEG) Urine Amphetamine/Methamphetamine Neg (NEG) Urine Benzodiazepines Screen Pos (NEG) Urine Cocaine Screen Neg (NEG) Urine Cannabinoids Screen Neg (NEG) Urine Ethyl Alcohol Pos (NEG) Test 08/29/19 19:30 Urine Opiates Screen Neg (NEG) Urine Methadone Screen Neg (NEG) Urine Barbiturates Neg (NEG) Urine Phencyclidine Screen Neg (NEG) Urine Amphetamine/Methamphetamine Neg (NEG) Urine Benzodiazepines Screen Pos (NEG) Urine Cocaine Screen Neg (NEG) Urine Cannabinoids Screen Neg (NEG) Urine Ethyl Alcohol Pos (NEG) Laboratory Tests Test 08/29/19 13:30 08/29/19 19:30 Urine Color Yellow Urine Clarity Clear Urine pH 5.5 Urine Specific [place] 1.020 Urine Protein Negative mg/dL (NEG-TRACE) Urine Glucose (UA) Negative mg/dL (NEG) Urine Ketones (Stick) Negative mg/dL (NEG) Urine Blood Negative (NEG) Urine Nitrite Negative (NEG) Urine Bilirubin Negative (NEG) Urine Urobilinogen Dipstick 0.2 mg/dL (0.2 mg/dL) Urine Leukocyte Esterase Trace (NEG) Urine RBC 0 /HPF (0-2) Urine WBC 1-4 /HPF (0-4) Urine Squamous Epithelial Cells Occ /LPF Urine Bacteria 0 /HPF (0-FEW) Urine Opiates Screen Neg (NEG) Neg (NEG) Urine Methadone Screen Neg (NEG) Neg (NEG) Urine Barbiturates Neg (NEG) Neg (NEG) Urine Phencyclidine Screen Neg (NEG) Neg (NEG) Urine Amphetamine/Methamphetamine Neg (NEG) Neg (NEG) Urine Benzodiazepines Screen Pos (NEG) Pos (NEG) Urine Cocaine Screen Neg (NEG) Neg (NEG) Urine Cannabinoids Screen Neg (NEG) Neg (NEG) Urine Ethyl Alcohol Pos (NEG) Pos (NEG) Medications Current Medications Lorazepam (Ativan Inj) 2 mg STK-MED ONCE .ROUTE ; Start 08/29/19 at 00:55; Stop 08/29/19 at 00:55; Status DC Multivitamins 10 ml/Thiamine HCl 100 mg/Folic Acid 1 mg/Sodium Chloride 1,011.2 ml @ 1,000.088 mls/hr 1X ONCE IV Last administered on 08/29/19at 01:56; Start 08/29/19 at 02:00; Stop 08/29/19 at 03:00; Status DC Lorazepam (Ativan Inj) 0.5 mg 1X ONCE IVP Last administered on 08/29/19at 01:45; Start 08/29/19 at 01:30; Stop 08/29/19 at 01:31; Status DC Lorazepam (Ativan Inj) 0.5 mg 1X ONCE IVP Last administered on 08/29/19at 02:57; Start 08/29/19 at 01:30; Stop 08/29/19 at 01:31; Status DC Magnesium Sulfate 50 ml @ 25 mls/hr 1X ONCE IV Last administered on 08/29/19at 03:00; Start 08/29/19 at 02:00; Stop 08/29/19 at 03:59; Status DC Diphtheria/ Tetanus/Acell Pertussis (Boostrix) 0.5 ml ONCE ONCE VAX IM Last administered on 08/29/19at 02:54; Start 08/29/19 at 02:30; Stop 08/29/19 at 02:31; Status DC Iohexol (Omnipaque 300 Mg/ml) 75 ml 1X ONCE IV ; Start 08/29/19 at 02:30; Stop 08/29/19 at 02:31; Status DC Info (CONTRAST GIVEN -- Rx MONITORING) 1 each PRN DAILY PRN MC SEE COMMENTS; Start 08/29/19 at 02:15; Stop 08/31/19 at 02:14 Ondansetron HCl (Zofran) 4 mg PRN Q8HRS PRN IV NAUSEA/VOMITING 1ST CHOICE; Start 08/29/19 at 02:15; Stop 08/30/19 at 02:14; Status DC Lorazepam (Ativan Inj) 1 mg PRN Q1HR PRN IV For CIWA 8-14 Last administered on 08/29/19at 12:10; Start 08/29/19 at 02:15 Lorazepam (Ativan Inj) 2 mg PRN Q1HR PRN IV For CIWA 15 or greater Last administered on 08/29/19at 06:42; Start 08/29/19 at 02:15 Oxycodone/ Acetaminophen (Percocet 5/325) 1 tab PRN Q4HRS PRN PO PAIN; Start 08/29/19 at 05:30; Status Cancel Oxycodone HCl (Roxicodone) 5 mg PRN Q6HRS PRN PO PAIN Last administered on 08/30/19at 10:07; Start 08/29/19 at 08:30 Multivitamins 10 ml/Thiamine HCl 100 mg/Folic Acid 1 mg/Sodium Chloride 1,011.2 ml @ 100 mls/ hr DAILY IV Last administered on 08/30/19at 08:45; Start 08/30/19 at 09:00; Stop 09/02/19 at 19:07 Multivitamins (Thera M Plus) 1 tab DAILY PO ; Start 09/03/19 at 09:00 Folic Acid (Folic Acid) 1 mg DAILY PO ; Start 09/03/19 at 09:00 Thiamine Mononitrate (Vitamin B-1) 100 mg DAILY PO ; Start 09/03/19 at 09:00 Lorazepam (Ativan) 4 mg PRN Q1HR PRN PO For CIWA 8-14; Start 08/29/19 at 11:15 Lorazepam (Ativan) 8 mg PRN Q1HR PRN PO For CIWA 15 or greater; Start 08/29/19 at 11:15 Lorazepam (Ativan Inj) 2 mg PRN Q1HR PRN IV For CIWA 8-14; Start 08/29/19 at 11:15 Lorazepam (Ativan Inj) 4 mg PRN Q1HR PRN IV For CIWA 15 or greater Last administered on 08/30/19at 03:43; Start 08/29/19 at 11:15 Clonidine HCl (Catapres) 0.1 mg PRN Q1HR PRN PO SBP > 180 or DBP > 100, MRX3; Start 08/29/19 at 11:15 Lorazepam (Ativan Inj) 2 mg PRN Q15MIN PRN IV SEE COMMENTS; Start 08/29/19 at 11:15; Status UNV Lorazepam (Ativan Inj) 4 mg PRN Q15MIN PRN IV SEE COMMENTS; Start 08/29/19 at 11:15; Status UNV Neomycin/ Polymyxin/ Bacitracin (Triple Antibiotic Ointment) 1 pkt BID TP Last administered on 08/30/19at 10:08; Start 08/29/19 at 14:00 Amlodipine Besylate (Norvasc) 5 mg DAILY PO Last administered on 08/30/19at 10:08; Start 08/30/19 at 09:00 Gabapentin (Neurontin) 600 mg QID PO Last administered on 08/30/19at 10:07; Start 08/29/19 at 17:00 Lorazepam (Ativan Intensol) 0.5 mg PRN BID PRN PO AGITATION; Start 08/29/19 at 16:45 Pantoprazole Sodium (Protonix) 40 mg DAILYAC PO Last administered on 08/30/19at 04:41; Start 08/29/19 at 17:00 Propranolol HCl (Inderal) 10 mg TID PO Last administered on 08/30/19at 10:07; Start 08/29/19 at 21:00 Trazodone HCl (Desyrel) 100 mg QHS PO Last administered on 08/29/19at 20:29; Start 08/29/19 at 21:00 Venlafaxine HCl (Effexor) 75 mg DAILY PO Last administered on 08/30/19at 10:07; Start 08/30/19 at 09:00 Ibuprofen (Motrin) 400 mg PRN Q6HRS PRN PO INFLAMMATION Last administered on 08/30/19at 03:43; Start 08/30/19 at 03:45 Ibuprofen (Motrin) 400 mg STK-MED ONCE PO ; Start 08/30/19 at 03:38; Stop 08/30/19 at 03:38; Status DC Haloperidol (Haldol) 10 mg 1X ONCE PO Last administered on 08/30/19at 04:42; Start 08/30/19 at 05:00; Stop 08/30/19 at 05:01; Status DC Haloperidol (Haldol) 5 mg PRN Q6HRS PRN PO AGITATION; Start 08/30/19 at 04:45 Active Scripts Active Reported Propranolol Hcl 10 Mg Tablet 1 Tab PO TID Pantoprazole Sodium (Pantoprazole Sodium) 40 Mg Tablet.dr 40 Mg PO DAILYAC Amlodipine Besylate 5 Mg Tablet 5 Mg PO DAILY Lorazepam 2 Mg/1 Ml Oral.conc 0.5 Mg PO PRN PRN Venlafaxine Hcl 75 Mg Tablet 75 Mg PO DAILY Trazodone Hcl 100 Mg Tablet 1 Tab PO QHS Gabapentin 300 Mg Capsule 600 Mg PO QID No Known Medications Prior To Admisstion (Info) Each 1 Each Vitals/I & O Vital Sign - Last 24 Hours 08/29/19 08/29/19 08/29/19 08/29/19 11:10 14:48 15:23 17:30 Temp 98.5 98.7 98.5 98.7 Pulse 77 93 Resp 16 16 B/P (MAP) 122/72 (89) 143/77 (99) Pulse Ox 97 95 95 95 O2 Delivery Room Air Room Air Room Air Room Air 08/29/19 08/29/19 08/29/19 08/29/19 19:25 20:00 20:29 23:15 Temp 99.1 100.1 99.1 100.1 Pulse 107 99 84 Resp B/P (MAP) 150/88 (108) 148/77 125/74 (91) Pulse Ox 97 95 O2 Delivery Room Air Room Air Room Air 08/30/19 08/30/19 08/30/19 08/30/19 02:22 07:50 08:00 10:07 Temp 101.0 99.2 101.0 99.2 Pulse 96 94 Resp 19 B/P (MAP) 146/87 (106) 152/86 (108) Pulse Ox 91 94 94 O2 Delivery Room Air Room Air Room Air Room Air 08/30/19 08/30/19 08/30/19 10:07 10:08 11:02 Temp 97.4 97.4 Pulse 94 94 98 Resp 18 B/P (MAP) 152/86 152/86 172/87 (115) Pulse Ox 98 O2 Delivery Room Air Intake and Output 08/29/19 08/29/19 08/30/19 15:00 23:00 07:00 Intake Total 250 ml 800 ml 240 ml Output Total 600 ml 450 ml Balance -350 ml 350 ml 240 ml TOMASA GARNER MD Aug 30, 2019 11:10
--- NOTE | 2019-08-30 15:44 | PDOC ---
PULMONARY PROGRESS NOTES Vitals Vital Signs Date Time Temp Pulse Resp B/P (MAP) Pulse Ox O2 Delivery O2 Flow Rate FiO2 08/30/19 14:18 46 20 105/63 (77) 95 Room Air 08/30/19 11:02 97.4 97.4 Lungs: Clear Labs Laboratory Tests Test 08/29/19 00:45 08/29/19 05:12 08/29/19 08:00 08/29/19 13:30 White Blood Count 9.7 x10^3/uL (4.0-11.0) Red Blood Count 4.28 x10^6/uL (4.30-5.70) Hemoglobin 14.6 g/dL (13.0-17.5) Hematocrit 43.5 % (39.0-53.0) Mean Corpuscular Volume 102 fL (79-100) Mean Corpuscular Hemoglobin 34 pg (25-35) Mean Corpuscular Hemoglobin Concent 34 g/dL (31-37) Red Cell Distribution Width 13.2 % (11.5-14.5) Platelet Count 302 x10^3/uL (140-400) Neutrophils (%) (Auto) 34 % (31-73) Lymphocytes (%) (Auto) 56 % (24-48) Monocytes (%) (Auto) 9 % (0-9) Eosinophils (%) (Auto) 1 % (0-3) Basophils (%) (Auto) 0 % (0-3) Neutrophils # (Auto) 3.3 x10^3/uL (1.8-7.7) Lymphocytes # (Auto) 5.4 x10^3/uL (1.0-4.8) Monocytes # (Auto) 0.8 x10^3/uL (0.0-1.1) Eosinophils # (Auto) 0.1 x10^3/uL (0.0-0.7) Basophils # (Auto) 0.0 x10^3/uL (0.0-0.2) Segmented Neutrophils % 39 % (35-66) Band Neutrophils % 1 % (0-9) Lymphocytes % 51 % (24-48) Atypical Lymphocytes % (Manual) 4 % (0-0) Monocytes % 4 % (0-10) Eosinophils % 1 % (0-5) Platelet Estimate Adequate (ADEQUATE) Prothrombin Time 13.8 SEC (11.7-14.0) Prothromb Time International Ratio 1.1 (0.8-1.1) Sodium Level 141 mmol/L (136-145) Potassium Level 3.8 mmol/L (3.5-5.1) Chloride Level 101 mmol/L (98-107) Carbon Dioxide Level 27 mmol/L (21-32) Anion Gap 13 (6-14) Blood Urea Nitrogen 6 mg/dL (8-26) Creatinine 1.0 mg/dL (0.7-1.3) Estimated GFR (Cockcroft-Gault) 76.0 BUN/Creatinine Ratio 6 (6-20) Glucose Level 110 mg/dL (70-99) Calcium Level 8.5 mg/dL (8.5-10.1) Magnesium Level 1.5 mg/dL (1.8-2.4) Total Bilirubin 0.3 mg/dL (0.2-1.0) Aspartate Amino Transf (AST/SGOT) 80 U/L (15-37) Alanine Aminotransferase (ALT/SGPT) 86 U/L (16-63) Alkaline Phosphatase 60 U/L (46-116) Creatine Kinase 63 U/L (39-308) Creatine Kinase MB (Mass) 2.3 ng/mL (0.0-3.6) Creatine Kinase MB Relative Index % (0-4) Troponin I Quantitative < 0.017 ng/mL (0.000-0.055) < 0.017 ng/mL (0.000-0.055) < 0.017 ng/mL (0.000-0.055) LE-Qtg-W-Type Natriuretic Peptide 313 pg/mL (0-124) Total Protein 7.5 g/dL (6.4-8.2) Albumin 3.4 g/dL (3.4-5.0) Albumin/Globulin Ratio 0.8 (1.0-1.7) Lipase 144 U/L (73-393) Salicylates Level 3.5 mg/dL (2.8-20.0) Salicylate Last Dose Date Unk Salicylate Last Dose Time Unk Acetaminophen Level < 2 mcg/ml (10-30) Acetaminophen Last Dose Date Unk Acetaminophen Last Dose Time Unk Ethyl Alcohol Level 281 mg/dL (0-10) Urine Color Yellow Urine Clarity Clear Urine pH 5.5 Urine Specific [place] 1.020 Urine Protein Negative mg/dL (NEG-TRACE) Urine Glucose (UA) Negative mg/dL (NEG) Urine Ketones (Stick) Negative mg/dL (NEG) Urine Blood Negative (NEG) Urine Nitrite Negative (NEG) Urine Bilirubin Negative (NEG) Urine Urobilinogen Dipstick 0.2 mg/dL (0.2 mg/dL) Urine Leukocyte Esterase Trace (NEG) Urine RBC 0 /HPF (0-2) Urine WBC 1-4 /HPF (0-4) Urine Squamous Epithelial Cells Occ /LPF Urine Bacteria 0 /HPF (0-FEW) Urine Opiates Screen Neg (NEG) Urine Methadone Screen Neg (NEG) Urine Barbiturates Neg (NEG) Urine Phencyclidine Screen Neg (NEG) Urine Amphetamine/Methamphetamine Neg (NEG) Urine Benzodiazepines Screen Pos (NEG) Urine Cocaine Screen Neg (NEG) Urine Cannabinoids Screen Neg (NEG) Urine Ethyl Alcohol Pos (NEG) Test 08/29/19 19:30 Urine Opiates Screen Neg (NEG) Urine Methadone Screen Neg (NEG) Urine Barbiturates Neg (NEG) Urine Phencyclidine Screen Neg (NEG) Urine Amphetamine/Methamphetamine Neg (NEG) Urine Benzodiazepines Screen Pos (NEG) Urine Cocaine Screen Neg (NEG) Urine Cannabinoids Screen Neg (NEG) Urine Ethyl Alcohol Pos (NEG) Laboratory Tests Test 08/29/19 19:30 Urine Opiates Screen Neg (NEG) Urine Methadone Screen Neg (NEG) Urine Barbiturates Neg (NEG) Urine Phencyclidine Screen Neg (NEG) Urine Amphetamine/Methamphetamine Neg (NEG) Urine Benzodiazepines Screen Pos (NEG) Urine Cocaine Screen Neg (NEG) Urine Cannabinoids Screen Neg (NEG) Urine Ethyl Alcohol Pos (NEG) Medications Active Scripts Medications Dose Route/Sig Max Daily Dose Days Date Category Propranolol Hcl 10 Mg Tablet 1 Tab PO TID 08/29/19 Reported Pantoprazole Sodium (Pantoprazole Sodium) 40 Mg Tablet.dr 40 Mg PO DAILYAC 08/29/19 Reported Amlodipine Besylate 5 Mg Tablet 5 Mg PO DAILY 08/29/19 Reported Lorazepam 2 Mg/1 Ml Oral.conc 0.5 Mg PO PRN PRN 08/29/19 Reported Venlafaxine Hcl 75 Mg Tablet 75 Mg PO DAILY 08/29/19 Reported Trazodone Hcl 100 Mg Tablet 1 Tab PO QHS 08/29/19 Reported Gabapentin 300 Mg Capsule 600 Mg PO QID 08/29/19 Reported No Known Medications Prior To Admisstion (Info) Each 1 Each 09/18/14 Reported Impression . FULL NOTED DICTATED THANKS SUPPORTIVE CARE AECOPD SEE ORDERS ELZBIETA SORTO MD Aug 30, 2019 15:44
[2019-08-30] MEDS ORDERED: predniSONE 20 MG TABLET PO ONE (15:45)
--- NOTE | 2019-08-30 15:52 | NUR ---
Pt became bradycardic, ranges 41-48bpm at 1400, BP 106/63 RR 20 O2 sat 95% on RA. He was asleep, awakens when called by name, denies headache or chest pain. Notified Dr. Presley at 1427, order for EKG noted. We'll continue to monitor.
--- NOTE | 2019-08-30 16:17 | EKG ---
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
[2019-08-30] MEDS ORDERED: IV NORMAL SALINE 1000ML BAG 1,000 ML IV ONE (16:30)
[2019-08-30] MEDS: DOXYCYCLINE HYCLATE 100 MG TABLET PO SCH ×2 (16:58→19:51)
--- NOTE | 2019-08-30 18:45 | NUR ---
Dr. Presley notified of EKG and updated of pt's vital signs. Order received to give 1 L of NS bolus. Patient's BP increased from 94/64 to 127/69 HR 48 RR 19 O2 sat 95% on RA. Patient is more awake and ate his dinner.
--- NOTE | 2019-08-30 18:48 | NUR ---
Patient did not complain of any urge to void, bladder scan done at 1800, showed 520mL volume. Straight catheterization done per protocol, obtained 600ml in the bag and pt also spontaneously voided. Urine was yellow and clear.
[2019-08-30] MEDS: traZODone 100 MG TABLET. PO SCH (19:51)
[2019-08-31] MEDS: IBUPROFEN 400 MG TABLET. PO PRN ×3 (00:16→18:29)
--- NOTE | 2019-08-31 05:28 | CONS ---
DATE OF CONSULTATION: 08/30/2019 REFERRING PHYSICIAN: Shruthi Angel MD REASON FOR CONSULTATION: Altered mental status. HISTORY OF PRESENT ILLNESS: The patient is a 59-year-old disabled man with bipolar disorder and alcoholism, who was getting out of his car and slipped and fell on ice. He struck the right side of his head and his right chest. This was just outside his home and he was unable to get up. He has a roommate who helped him get up. Roommate was concerned and called EMS. The patient reports drinking 8 beers a day for several years. He denies ever experiencing DTs. He has been experiencing right-sided headache and right-sided chest pain. It is in the records that he reports daily suicidal ideation. PAST MEDICAL HISTORY: 1. Hepatitis C. 2. Alcoholism. 3. Bipolar disorder. 4. Suicidality. ALLERGIES: No known allergies to drugs, but he does adversely react to ACETAMINOPHEN. MEDICATIONS PRIOR TO ADMISSION: Amlodipine 5 mg, gabapentin 600 mg 4 times per day, lorazepam 2 mg/mL oral concentration, 0.5 mg as needed, pantoprazole 40 mg, propranolol 10 mg 3 times per day, trazodone 100 mg at night and venlafaxine 75 mg. FAMILY HISTORY: Pertinent for alcohol abuse. SOCIAL HISTORY: He heavily drinks alcohol. He uses marijuana. He smokes cigarettes. REVIEW OF SYSTEMS: He has a right-sided headache. He is not aware of any loss of vision or hearing. He is not aware of any cognitive loss. He gets short of breath with exertion. He is having right-sided chest pain. He does not currently complain of other bone or joint pain. There has been no fever or rash. Denies any gastrointestinal or genitourinary complaint. Feels generally weak, but has no focal weakness. Does not complain of numbness. Does not complain of easy bruising, bleeding or swelling. PHYSICAL EXAMINATION: VITAL SIGNS: The blood pressure was 127/69, pulse 48, respirations 19, temperature 97.4 degrees axillary. Oximetry was 93% on room air. His weight was 73.5 kilograms, height 64 inches with a calculated body mass index of 27.8. GENERAL: He was initially sleeping upon my arrival. The TV was on quite loud. With some tactile stimulation, he was able to wake up, but if unstimulated after a time, he would drift back to sleep. He was able to generally participate in most of the exam. He was fully oriented to name of hospital, month and year. He appeared well nourished. Grooming was somewhat diminished. NEUROLOGIC: Examination of the cranial nerves revealed visual holcomb were full to confrontation. Extraocular movements were intact. The eyes were conjugate. Pursuit movements were smooth and saccadic eye movements were without dysmetria. Pupils were 3 mm and reactive. He was unable to cooperate for funduscopic exam. Facial sensation was intact bilaterally. The muscles of mastication and facial expression were powerful symmetrically. Hearing was intact to finger rub. The palate arched symmetrically and the tongue was midline with full range of motion. Sternocleidomastoid and trapezius were powerful. Muscle bulk and tone was normal. There was no arm or leg drift. Power was fairly full in the upper extremities. Lower extremities burst strength was good. He gave away pretty easily. He was drifting off by this time and some of the power testing was less than optimal. Reflexes were 2/4 in the upper extremities and at the knees, absent at the ankles. Toes were not upgoing. Coordination testing with [id number], [id number], fine motor and rapid alternating movements was fair. Sensory exam was intact to pain, light touch, proprioception, graphesthesia, cold thermal and vibration. There was no extinction to double simultaneous stimulation. Gait was not testable. NECK: Auscultation of the carotid arteries did not reveal a bruit. HEART: Rhythm was regular without murmur. EXTREMITIES: Peripheral pulses were symmetric in the hands and feet. There was no edema or cyanosis. He had abrasions over his right forehead. He had various areas of abrasion of different stages of healing. REVIEW OF LABORATORY DATA: CBC revealed a normal white blood cell count, hemoglobin, hematocrit and platelet count. MCV was elevated to 102. He had an increased number of lymphocytes to 51%. Chemistries were performed 08/29/2019 revealing normal electrolytes. BUN and creatinine were not elevated and GFR calculated at 76. Glucose was elevated to 110. Calcium was normal. Magnesium was low at 1.3. AST and ALT were elevated at 80 and 86 respectively. Alkaline phosphatase was not elevated nor was total bilirubin. Total protein and albumin were normal. Lipase was not elevated. Troponins were measured on 3 occasions and negative. BNP was elevated at 313. CPK was not elevated. Urine drug screen was positive for alcohol on 08/29/2019. It was negative for cannabinoids. It was positive for benzodiazepines. Acetaminophen was less than 2, but salicylate was 3.5, which was less than therapeutic range. Blood alcohol level was 281 mg/dL. Urinalysis revealed trace leukocyte esterase, 1-4 white blood cells and occasional squamous epithelial cells. PT/INR was 1.1. CT scan of the head and cervical spine was performed on 08/29/2019, this did not reveal any acute process. There was no acute process in the cervical spine. CTA of the chest revealed minimally displaced fracture of the right 4th rib. There was a nondisplaced right second, third, fifth, sixth and seventh rib fractures. There is no pneumothorax. There was no major traumatic intrathoracic injury. IMPRESSION: The patient is a 59-year-old man who apparently slipped when he was getting out of his car at home. He struck his head and the right side of his chest wall causing multiple rib fractures and a contusion. He certainly may have suffered a concussion, but he does not have intracranial hemorrhage. He was quite intoxicated with a level of 281 at the time of his ER admission, which certainly may have contributed to his altered balance. At this time, he is sleepy, but he is able to arouse and participate in the exam. I do not see anything focal that would suggest stroke. He may be encephalopathic from the trauma and certainly may have a concussion which can take up to 12 weeks to improve. RECOMMENDATIONS: I would continue with the alcohol withdrawal protocol. I will need to be evaluated by the therapies in the next few days to assure stability. He may need to work with Psychiatry due to suicidal ideation. I am not clear whether he is actually taking his home medicines. Further neurologic investigation is not needed at this time. REGLA MAJANO MD DR: DAMON/thomas JOB#: [id number] / [id number] MAIKOL Gallagher MD, FERILYN MD
--- NOTE | 2019-08-31 06:35 | CONS ---
DATE OF CONSULTATION: 08/30/2019 ATTENDING PHYSICIAN: Dr. Presley. REASON FOR CONSULTATION: The patient seen in pulmonary consultation at the request of Dr. Presley for shortness of air, recent rib fracture. HISTORY OF PRESENT ILLNESS: The patient is a 59-year-old who presented after slipping and falling on the ice outside of his home. He had a CT chest revealing multiple rib fractures. There was some mild infiltrates, no effusion, no evidence of pulmonary contusion. The patient does have a history of tobacco and alcoholism. He presented with the above. I was asked to see him in consultation. He currently has a cough productive of discolored sputum. No fever, chills or night sweats. PAST MEDICAL HISTORY: COPD, tobacco dependent, alcoholism and marijuana use, hepatitis C. PAST SURGICAL HISTORY: No recent surgeries. FAMILY HISTORY: Remarkable for alcoholism. SOCIAL HISTORY: He smokes, he drinks and uses marijuana. REVIEW OF SYSTEMS: As indicated above, otherwise, a 10-point system was reviewed and negative. CONSTITUTIONAL: No fever or chills. EYES: No change in visual acuity. HENT: No nasal congestion or sore throat. PULMONARY: As indicated above. GASTROINTESTINAL: No nausea, vomiting or diarrhea. GENITOURINARY: No dysuria or frequency. MUSCULOSKELETAL: No localized muscle aches or joint pains. SKIN: No new skin rashes. NEUROLOGIC: No headaches, diplopia or blurred vision. PHYSICAL EXAMINATION: GENERAL: The patient appeared to be older than stated age. VITAL SIGNS: Stable, currently on room air. HEENT: Eyes, the sclerae were nonicteric. NECK: Jugular venous distention was not elevated. No lymphadenopathy. CHEST: Full expansion. LUNGS: Crackles in the bases. No wheezes. CARDIOVASCULAR: Regular rate and rhythm with S1, S2, no S3. ABDOMEN: Soft, nontender, nondistended. EXTREMITIES: No clubbing, cyanosis or edema. NEUROLOGICAL: The patient is awake, alert, following commands. A detailed neuro exam was not performed. LABORATORY DATA: Reviewed. CT chest as indicated above. CT head and cervical spine, no acute intracranial process, no cervical spine fractures. Labs were reviewed. IMPRESSION: 1. Progressive dyspnea secondary to chronic obstructive pulmonary disease along with recent fall resulting in rib fractures. 2. Chronic obstructive pulmonary disease. 3. Alcoholism. 4. Hepatitis C. 5. Polysubstance abuse. PLAN: 1. Continue supportive care. 2. Treat acute nonspecific bronchitis. 3. Manage pain. 4. Alcohol withdrawal precaution. I do appreciate the privilege in sharing in the patient's care. ELZBIETA SORTO MD DR: ALDAIR/thomas JOB#: [id number] / [id number]
[2019-08-31 07:39] VITALS: BP 109/55
[2019-08-31] MEDS: PANTOPRAZOLE 40 MG TABLET.DR. PO SCH (08:47)
[2019-08-31] MEDS: PROPRANOLOL 10 MG TABLET. PO SCH ×3 (08:47→21:30)
[2019-08-31] MEDS: GABAPENTIN 300 MG CAPSULE. PO SCH ×4 (08:47→21:30)
[2019-08-31] MEDS: predniSONE 20 MG TABLET PO SCH (08:48)
[2019-08-31] MEDS: NEOMY/BACITR/POLYMYXIN OINT PACKET. TP SCH ×2 (08:48→21:31)
[2019-08-31] MEDS: amLODIPine BESYLATE 5 MG TABLET PO SCH (08:48)
[2019-08-31] MEDS: VENLAFAXINE 75 MG TABLET. PO SCH (08:48)
[2019-08-31] MEDS: DOXYCYCLINE HYCLATE 100 MG TABLET PO SCH ×2 (08:48→21:31)
[2019-08-31] MEDS: MULTIVIT INFUSN,ADULT 4,VIT K 10 ML, THIAMINE INJ 100 MG, FOLIC ACID INJ 1 MG in IV NOR... IV SCH (08:49)
--- NOTE | 2019-08-31 09:38 | PDOC ---
PROGRESS NOTES History of Present Illness History of Present Illness VTE Prophylaxis Ordered VTE Prophylaxis Devices: No VTE Pharmacological Prophylaxi: Yes Assessment/Plan Assessment/Plan Impression: Suicidal ideation, resolved MAJOR DEPRESSION Alcohol abuse, SEVERE Chest pain DUE TO RIB FX Head contusion Rib fracture Minimally displaced right 4th rib fracture. Nondisplaced right 2nd, 3rd, 5th, 6th, and 7th rib fractures. No pneumothorax. No major traumatic intrathoracic injury. LABILE HTN ADMITTED TELE ALCOHOL WITHDRAWAL PRECAUTIONS pat team pulm consult PAIN CONTROL DVT PROPHYLAXIS neurology consult NORVASC 5 MG PO DAILY 26 MIN PT EXAM, CHART REVIEW, > 50% of time spent with exam, chart review, pt care coordination Vitals Vitals Vital Signs Date Time Temp Pulse Resp B/P (MAP) Pulse Ox O2 Delivery O2 Flow Rate FiO2 08/31/19 08:48 74 109/55 08/31/19 07:39 97.5 18 95 Room Air 97.5 Physical Exam General: Alert, Oriented X3, Cooperative, No acute distress Heart: Regular rate, Normal S1 Lungs: Clear Abdomen: Normal bowel sounds, Soft Extremities: No clubbing, No cyanosis Assessment and Plan Assessmemt and Plan Problems Medical Problems: (1) Alcohol abuse Status: Acute (2) Chest pain Status: Acute (3) Head contusion Status: Acute (4) Rib fracture Status: Acute (5) Suicidal ideation Status: Acute Comment Review of Relevant I have reviewed the following items kyler (where applicable) has been applied. Labs Laboratory Tests Test 08/29/19 13:30 08/29/19 19:30 Urine Color Yellow Urine Clarity Clear Urine pH 5.5 Urine Specific [place] 1.020 Urine Protein Negative mg/dL (NEG-TRACE) Urine Glucose (UA) Negative mg/dL (NEG) Urine Ketones (Stick) Negative mg/dL (NEG) Urine Blood Negative (NEG) Urine Nitrite Negative (NEG) Urine Bilirubin Negative (NEG) Urine Urobilinogen Dipstick 0.2 mg/dL (0.2 mg/dL) Urine Leukocyte Esterase Trace (NEG) Urine RBC 0 /HPF (0-2) Urine WBC 1-4 /HPF (0-4) Urine Squamous Epithelial Cells Occ /LPF Urine Bacteria 0 /HPF (0-FEW) Urine Opiates Screen Neg (NEG) Neg (NEG) Urine Methadone Screen Neg (NEG) Neg (NEG) Urine Barbiturates Neg (NEG) Neg (NEG) Urine Phencyclidine Screen Neg (NEG) Neg (NEG) Urine Amphetamine/Methamphetamine Neg (NEG) Neg (NEG) Urine Benzodiazepines Screen Pos (NEG) Pos (NEG) Urine Cocaine Screen Neg (NEG) Neg (NEG) Urine Cannabinoids Screen Neg (NEG) Neg (NEG) Urine Ethyl Alcohol Pos (NEG) Pos (NEG) Medications Current Medications Lorazepam (Ativan Inj) 2 mg STK-MED ONCE .ROUTE ; Start 08/29/19 at 00:55; Stop 08/29/19 at 00:55; Status DC Multivitamins 10 ml/Thiamine HCl 100 mg/Folic Acid 1 mg/Sodium Chloride 1,011.2 ml @ 1,000.088 mls/hr 1X ONCE IV Last administered on 08/29/19at 01:56; Start 08/29/19 at 02:00; Stop 08/29/19 at 03:00; Status DC Lorazepam (Ativan Inj) 0.5 mg 1X ONCE IVP Last administered on 08/29/19at 01:45; Start 08/29/19 at 01:30; Stop 08/29/19 at 01:31; Status DC Lorazepam (Ativan Inj) 0.5 mg 1X ONCE IVP Last administered on 08/29/19at 02:57; Start 08/29/19 at 01:30; Stop 08/29/19 at 01:31; Status DC Magnesium Sulfate 50 ml @ 25 mls/hr 1X ONCE IV Last administered on 08/29/19at 03:00; Start 08/29/19 at 02:00; Stop 08/29/19 at 03:59; Status DC Diphtheria/ Tetanus/Acell Pertussis (Boostrix) 0.5 ml ONCE ONCE VAX IM Last administered on 08/29/19at 02:54; Start 08/29/19 at 02:30; Stop 08/29/19 at 02:31; Status DC Iohexol (Omnipaque 300 Mg/ml) 75 ml 1X ONCE IV ; Start 08/29/19 at 02:30; Stop 08/29/19 at 02:31; Status DC Info (CONTRAST GIVEN -- Rx MONITORING) 1 each PRN DAILY PRN MC SEE COMMENTS; Start 08/29/19 at 02:15; Stop 08/31/19 at 02:14; Status DC Ondansetron HCl (Zofran) 4 mg PRN Q8HRS PRN IV NAUSEA/VOMITING 1ST CHOICE; Start 08/29/19 at 02:15; Stop 08/30/19 at 02:14; Status DC Lorazepam (Ativan Inj) 1 mg PRN Q1HR PRN IV For CIWA 8-14 Last administered on 08/29/19at 12:10; Start 08/29/19 at 02:15; Stop 08/30/19 at 15:36; Status DC Lorazepam (Ativan Inj) 2 mg PRN Q1HR PRN IV For CIWA 15 or greater Last administered on 08/29/19at 06:42; Start 08/29/19 at 02:15; Stop 08/30/19 at 15:36; Status DC Oxycodone/ Acetaminophen (Percocet 5/325) 1 tab PRN Q4HRS PRN PO PAIN; Start 08/29/19 at 05:30; Status Cancel Oxycodone HCl (Roxicodone) 5 mg PRN Q6HRS PRN PO PAIN Last administered on 08/30/19at 10:07; Start 08/29/19 at 08:30 Multivitamins 10 ml/Thiamine HCl 100 mg/Folic Acid 1 mg/Sodium Chloride 1,011.2 ml @ 100 mls/ hr DAILY IV Last administered on 08/31/19at 08:49; Start 08/30/19 at 09:00; Stop 09/02/19 at 19:07 Multivitamins (Thera M Plus) 1 tab DAILY PO ; Start 09/03/19 at 09:00 Folic Acid (Folic Acid) 1 mg DAILY PO ; Start 09/03/19 at 09:00 Thiamine Mononitrate (Vitamin B-1) 100 mg DAILY PO ; Start 09/03/19 at 09:00 Lorazepam (Ativan) 4 mg PRN Q1HR PRN PO For CIWA 8-14; Start 08/29/19 at 11:15 Lorazepam (Ativan) 8 mg PRN Q1HR PRN PO For CIWA 15 or greater; Start 08/29/19 at 11:15 Lorazepam (Ativan Inj) 2 mg PRN Q1HR PRN IV For CIWA 8-14 Last administered on 08/31/19at 08:55; Start 08/29/19 at 11:15 Lorazepam (Ativan Inj) 4 mg PRN Q1HR PRN IV For CIWA 15 or greater Last administered on 08/30/19at 03:43; Start 08/29/19 at 11:15 Clonidine HCl (Catapres) 0.1 mg PRN Q1HR PRN PO SBP > 180 or DBP > 100, MRX3; Start 08/29/19 at 11:15 Lorazepam (Ativan Inj) 2 mg PRN Q15MIN PRN IV SEE COMMENTS; Start 08/29/19 at 11:15; Status UNV Lorazepam (Ativan Inj) 4 mg PRN Q15MIN PRN IV SEE COMMENTS; Start 08/29/19 at 11:15; Status UNV Neomycin/ Polymyxin/ Bacitracin (Triple Antibiotic Ointment) 1 pkt BID TP Last administered on 08/31/19 08:48; Start 08/29/19 at 14:00 Amlodipine Besylate (Norvasc) 5 mg DAILY PO Last administered on 08/31/19 08:48; Start 08/30/19 at 09:00 Gabapentin (Neurontin) 600 mg QID PO Last administered on 08/31/19 08:47; Start 08/29/19 at 17:00 Lorazepam (Ativan Intensol) 0.5 mg PRN BID PRN PO AGITATION; Start 08/29/19 at 16:45 Pantoprazole Sodium (Protonix) 40 mg DAILYAC PO Last administered on 08/31/19at 08:47; Start 08/29/19 at 17:00 Propranolol HCl (Inderal) 10 mg TID PO Last administered on 08/31/19 08:47; Start 08/29/19 at 21:00 Trazodone HCl (Desyrel) 100 mg QHS PO Last administered on 08/30/19at 19:51; Start 08/29/19 at 21:00 Venlafaxine HCl (Effexor) 75 mg DAILY PO Last administered on 08/31/19 08:48; Start 08/30/19 at 09:00 Ibuprofen (Motrin) 400 mg PRN Q6HRS PRN PO INFLAMMATION Last administered on 08/31/19 08:55; Start 08/30/19 at 03:45 Ibuprofen (Motrin) 400 mg STK-MED ONCE PO ; Start 08/30/19 at 03:38; Stop 08/30/19 at 03:38; Status DC Haloperidol (Haldol) 10 mg 1X ONCE PO Last administered on 08/30/19at 04:42; Start 08/30/19 at 05:00; Stop 08/30/19 at 05:01; Status DC Haloperidol (Haldol) 5 mg PRN Q6HRS PRN PO AGITATION; Start 08/30/19 at 04:45 Doxycycline Hyclate (Vibra-Tab) 100 mg BID PO Last administered on 08/31/19at 08:48; Start 08/30/19 at 16:00 Prednisone (Prednisone) 20 mg 1X ONCE PO Last administered on 08/30/19at 16:58; Start 08/30/19 at 15:45; Stop 08/30/19 at 15:47; Status DC Prednisone (Prednisone) 20 mg DAILY PO Last administered on 08/31/19at 08:48; Start 08/31/19 at 09:00 Sodium Chloride 1,000 ml @ 1,000 mls/hr 1X ONCE IV Last administered on 08/30/19at 16:49; Start 08/30/19 at 16:30; Stop 08/30/19 at 17:29; Status DC Active Scripts Active Reported Propranolol Hcl 10 Mg Tablet 1 Tab PO TID Pantoprazole Sodium (Pantoprazole Sodium) 40 Mg Tablet.dr 40 Mg PO DAILYAC Amlodipine Besylate 5 Mg Tablet 5 Mg PO DAILY Lorazepam 2 Mg/1 Ml Oral.conc 0.5 Mg PO PRN PRN Venlafaxine Hcl 75 Mg Tablet 75 Mg PO DAILY Trazodone Hcl 100 Mg Tablet 1 Tab PO QHS Gabapentin 300 Mg Capsule 600 Mg PO QID No Known Medications Prior To Admisstion (Info) Each 1 Each Vitals/I & O Vital Sign - Last 24 Hours 08/30/19 08/30/19 08/30/19 08/30/19 07:50 08:00 10:07 10:07 Temp 99.2 99.2 Pulse 94 94 Resp 18 19 B/P (MAP) 152/86 (108) 152/86 Pulse Ox 94 94 O2 Delivery Room Air Room Air Room Air 08/30/19 08/30/19 08/30/19 08/30/19 10:08 11:02 11:10 13:12 Temp 97.4 97.4 Pulse 94 98 98 Resp B/P (MAP) 152/86 172/87 (115) 172/87 Pulse Ox 98 O2 Delivery Room Air Room Air 08/30/19 08/30/19 08/30/19 08/30/19 14:18 16:25 17:56 19:35 Temp 98.8 98.8 Pulse 46 44 48 50 Resp 20 19 19 18 B/P (MAP) 105/63 (77) 94/64 (74) 127/69 (88) 142/71 (94) Pulse Ox 95 95 93 92 O2 Delivery Room Air Room Air Room Air Room Air 08/30/19 08/30/19 08/30/19 08/31/19 19:45 19:51 23:51 07:39 Temp 98.7 97.5 98.7 97.5 Pulse 49 56 74 Resp 18 18 B/P (MAP) 142/71 138/66 (90) 109/55 (73) Pulse Ox 94 95 O2 Delivery Room Air Room Air Room Air 08/31/19 08/31/19 08:47 08:48 Pulse 74 74 B/P (MAP) 109/55 109/55 Intake and Output 08/30/19 08/31/19 08/31/19 17:00 01:00 09:00 Intake Total 0 ml 300 ml 250 ml Balance 0 ml 300 ml 250 ml TOMASA GARNER MD Aug 31, 2019 09:38
--- NOTE | 2019-08-31 10:48 | PDOC ---
PULMONARY PROGRESS NOTES Subjective PT NOT MORE SOA PAIN AT TIMES Vitals Vital Signs Date Time Temp Pulse Resp B/P (MAP) Pulse Ox O2 Delivery O2 Flow Rate FiO2 08/31/19 08:48 74 109/55 08/31/19 07:39 97.5 18 95 Room Air 97.5 ROS: No Nausea, No Abdominal Pain, No Increase Cough General: Alert Lungs: Clear Cardiovascular: S1, S2 Abdomen: Soft Neuro Exam: Alert Extremities: No Edema Skin: Warm Labs Laboratory Tests Test 08/29/19 13:30 08/29/19 19:30 Urine Color Yellow Urine Clarity Clear Urine pH 5.5 Urine Specific [place] 1.020 Urine Protein Negative mg/dL (NEG-TRACE) Urine Glucose (UA) Negative mg/dL (NEG) Urine Ketones (Stick) Negative mg/dL (NEG) Urine Blood Negative (NEG) Urine Nitrite Negative (NEG) Urine Bilirubin Negative (NEG) Urine Urobilinogen Dipstick 0.2 mg/dL (0.2 mg/dL) Urine Leukocyte Esterase Trace (NEG) Urine RBC 0 /HPF (0-2) Urine WBC 1-4 /HPF (0-4) Urine Squamous Epithelial Cells Occ /LPF Urine Bacteria 0 /HPF (0-FEW) Urine Opiates Screen Neg (NEG) Neg (NEG) Urine Methadone Screen Neg (NEG) Neg (NEG) Urine Barbiturates Neg (NEG) Neg (NEG) Urine Phencyclidine Screen Neg (NEG) Neg (NEG) Urine Amphetamine/Methamphetamine Neg (NEG) Neg (NEG) Urine Benzodiazepines Screen Pos (NEG) Pos (NEG) Urine Cocaine Screen Neg (NEG) Neg (NEG) Urine Cannabinoids Screen Neg (NEG) Neg (NEG) Urine Ethyl Alcohol Pos (NEG) Pos (NEG) Medications Active Scripts Medications Dose Route/Sig Max Daily Dose Days Date Category Propranolol Hcl 10 Mg Tablet 1 Tab PO TID 08/29/19 Reported Pantoprazole Sodium (Pantoprazole Sodium) 40 Mg Tablet.dr 40 Mg PO DAILYAC 08/29/19 Reported Amlodipine Besylate 5 Mg Tablet 5 Mg PO DAILY 08/29/19 Reported Lorazepam 2 Mg/1 Ml Oral.conc 0.5 Mg PO PRN PRN 08/29/19 Reported Venlafaxine Hcl 75 Mg Tablet 75 Mg PO DAILY 08/29/19 Reported Trazodone Hcl 100 Mg Tablet 1 Tab PO QHS 08/29/19 Reported Gabapentin 300 Mg Capsule 600 Mg PO QID 08/29/19 Reported No Known Medications Prior To Admisstion (Info) Each 1 Each 09/18/14 Reported Impression . IMPRESSION: 1. Progressive dyspnea secondary to chronic obstructive pulmonary disease along with recent fall resulting in rib fractures. 2. Chronic obstructive pulmonary disease. 3. Alcoholism. 4. Hepatitis C. 5. Polysubstance abuse. Plan . ADD IS 1. Continue supportive care. 2. Treat acute nonspecific bronchitis. 3. Manage pain. 4. Alcohol withdrawal precaution. ELZBIETA SORTO MD Aug 31, 2019 10:48
[2019-08-31 11:00] VITALS: BP 124/66
[2019-08-31] MEDS: oxyCODONE IR 5 MG TABLET PO PRN ×2 (13:55→22:32)
[2019-08-31 15:40] VITALS: BP 127/68
[2019-08-31 19:20] VITALS: BP 144/76
[2019-08-31] MEDS: LACTOBACILLUS RHAMNOSUS GG 1 CAPSULE. PO SCH (21:30)
[2019-08-31] MEDS: traZODone 100 MG TABLET. PO SCH (21:31)
[2019-08-31 23:20] VITALS: BP 127/70
--- NOTE | 2019-09-01 01:13 | NUR ---
Dr. Presley paged regarding 8 beat run of VTach patient had at 0053. Orders received for cardiac consult, stat 12 lead EKG, stat mg lab draw. Patient asymptomatic at this time. Will continue to monitor.
--- NOTE | 2019-09-01 01:57 | EKG ---
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
[2019-09-01] MEDS: IBUPROFEN 400 MG TABLET. PO PRN ×2 (03:12→11:55)
[2019-09-01 03:20] VITALS: BP 115/58
[2019-09-01] MEDS: PANTOPRAZOLE 40 MG TABLET.DR. PO SCH (07:23)
[2019-09-01] MEDS: oxyCODONE IR 5 MG TABLET PO PRN ×2 (07:24→17:23)
[2019-09-01 07:54] VITALS: BP 145/70
[2019-09-01] MEDS: GABAPENTIN 300 MG CAPSULE. PO SCH ×4 (08:29→21:08)
[2019-09-01] MEDS: NEOMY/BACITR/POLYMYXIN OINT PACKET. TP SCH ×2 (08:29→21:08)
[2019-09-01] MEDS: VENLAFAXINE 75 MG TABLET. PO SCH (08:30)
[2019-09-01] MEDS: DOXYCYCLINE HYCLATE 100 MG TABLET PO SCH ×2 (08:30→21:08)
[2019-09-01] MEDS: amLODIPine BESYLATE 5 MG TABLET PO SCH (08:30)
[2019-09-01] MEDS: LACTOBACILLUS RHAMNOSUS GG 1 CAPSULE. PO SCH ×2 (08:30→21:08)
[2019-09-01] MEDS: predniSONE 20 MG TABLET PO SCH (08:30)
[2019-09-01] MEDS: MULTIVIT INFUSN,ADULT 4,VIT K 10 ML, THIAMINE INJ 100 MG, FOLIC ACID INJ 1 MG in IV NOR... IV SCH (08:31)
[2019-09-01] MEDS: PROPRANOLOL 10 MG TABLET. PO SCH ×3 (09:00→21:00)
--- NOTE | 2019-09-01 10:02 | PDOC ---
PROGRESS NOTES History of Present Illness History of Present Illness VTE Prophylaxis Ordered VTE Prophylaxis Devices: No VTE Pharmacological Prophylaxi: Yes Assessment/Plan Assessment/Plan Impression: Suicidal ideation, resolved MAJOR DEPRESSION Alcohol abuse, SEVERE Chest pain DUE TO RIB FX Head contusion Rib fracture Minimally displaced right 4th rib fracture. Nondisplaced right 2nd, 3rd, 5th, 6th, and 7th rib fractures. No pneumothorax. No major traumatic intrathoracic injury. LABILE HTN hypomagnesemia ADMITTED TELE ALCOHOL WITHDRAWAL PRECAUTIONS pat team pulm consult PAIN CONTROL DVT PROPHYLAXIS neurology consult NORVASC 5 MG PO DAILY echo 09/01 2 gm mg iv x 1 09/01 09/01 chest wall pain persistent, slow to resolve, agitated at times 28 MIN PT EXAM, CHART REVIEW, > 50% of time spent with exam, chart review, pt care coordination Vitals Vitals Vital Signs Date Time Temp Pulse Resp B/P (MAP) Pulse Ox O2 Delivery O2 Flow Rate FiO2 09/01/19 09:00 48 145/70 09/01/19 08:25 19 92 Room Air 09/01/19 07:54 97.9 97.9 Physical Exam General: Alert, Oriented X3, Cooperative, No acute distress Heart: Regular rate, Normal S1 Lungs: Clear Abdomen: Normal bowel sounds, Soft Extremities: No clubbing, No cyanosis Labs LABS Laboratory Tests Test 09/01/19 01:17 Magnesium Level 1.5 mg/dL (1.8-2.4) Assessment and Plan Assessmemt and Plan Problems Medical Problems: (1) Alcohol abuse Status: Acute (2) Chest pain Status: Acute (3) Head contusion Status: Acute (4) Rib fracture Status: Acute (5) Suicidal ideation Status: Acute Comment Review of Relevant I have reviewed the following items klyer (where applicable) has been applied. Labs Laboratory Tests Test 09/01/19 01:17 Magnesium Level 1.5 mg/dL (1.8-2.4) Laboratory Tests Test 09/01/19 01:17 Magnesium Level 1.5 mg/dL (1.8-2.4) Medications Current Medications Lorazepam (Ativan Inj) 2 mg STK-MED ONCE .ROUTE ; Start 08/29/19 at 00:55; Stop 08/29/19 at 00:55; Status DC Multivitamins 10 ml/Thiamine HCl 100 mg/Folic Acid 1 mg/Sodium Chloride 1,011.2 ml @ 1,000.088 mls/hr 1X ONCE IV Last administered on 08/29/19at 01:56; Start 08/29/19 at 02:00; Stop 08/29/19 at 03:00; Status DC Lorazepam (Ativan Inj) 0.5 mg 1X ONCE IVP Last administered on 08/29/19at 01:45; Start 08/29/19 at 01:30; Stop 08/29/19 at 01:31; Status DC Lorazepam (Ativan Inj) 0.5 mg 1X ONCE IVP Last administered on 08/29/19at 02:57; Start 08/29/19 at 01:30; Stop 08/29/19 at 01:31; Status DC Magnesium Sulfate 50 ml @ 25 mls/hr 1X ONCE IV Last administered on 08/29/19at 03:00; Start 08/29/19 at 02:00; Stop 08/29/19 at 03:59; Status DC Diphtheria/ Tetanus/Acell Pertussis (Boostrix) 0.5 ml ONCE ONCE VAX IM Last administered on 08/29/19at 02:54; Start 08/29/19 at 02:30; Stop 08/29/19 at 02:31; Status DC Iohexol (Omnipaque 300 Mg/ml) 75 ml 1X ONCE IV ; Start 08/29/19 at 02:30; Stop 08/29/19 at 02:31; Status DC Info (CONTRAST GIVEN -- Rx MONITORING) 1 each PRN DAILY PRN MC SEE COMMENTS; Start 08/29/19 at 02:15; Stop 08/31/19 at 02:14; Status DC Ondansetron HCl (Zofran) 4 mg PRN Q8HRS PRN IV NAUSEA/VOMITING 1ST CHOICE; Sta rt 08/29/19 at 02:15; Stop 08/30/19 at 02:14; Status DC Lorazepam (Ativan Inj) 1 mg PRN Q1HR PRN IV For CIWA 8-14 Last administered on 08/29/19at 12:10; Start 08/29/19 at 02:15; Stop 08/30/19 at 15:36; Status DC Lorazepam (Ativan Inj) 2 mg PRN Q1HR PRN IV For CIWA 15 or greater Last administered on 08/29/19at 06:42; Start 08/29/19 at 02:15; Stop 08/30/19 at 15:36; Status DC Oxycodone/ Acetaminophen (Percocet 5/325) 1 tab PRN Q4HRS PRN PO PAIN; Start 08/29/19 at 05:30; Status Cancel Oxycodone HCl (Roxicodone) 5 mg PRN Q6HRS PRN PO PAIN Last administered on 09/01/19at 07:24; Start 08/29/19 at 08:30 Multivitamins 10 ml/Thiamine HCl 100 mg/Folic Acid 1 mg/Sodium Chloride 1,011.2 ml @ 100 mls/ hr DAILY IV Last administered on 09/01/19at 08:31; Start 08/30/19 at 09:00; Stop 09/02/19 at 19:07 Multivitamins (Thera M Plus) 1 tab DAILY PO ; Start 09/03/19 at 09:00 Folic Acid (Folic Acid) 1 mg DAILY PO ; Start 09/03/19 at 09:00 Thiamine Mononitrate (Vitamin B-1) 100 mg DAILY PO ; Start 09/03/19 at 09:00 Lorazepam (Ativan) 4 mg PRN Q1HR PRN PO For CIWA 8-14; Start 08/29/19 at 11:15 Lorazepam (Ativan) 8 mg PRN Q1HR PRN PO For CIWA 15 or greater; Start 08/29/19 at 11:15 Lorazepam (Ativan Inj) 2 mg PRN Q1HR PRN IV For CIWA 8-14 Last administered on 08/31/19at 18:30; Start 08/29/19 at 11:15 Lorazepam (Ativan Inj) 4 mg PRN Q1HR PRN IV For CIWA 15 or greater Last administered on 08/30/19at 03:43; Start 08/29/19 at 11:15 Clonidine HCl (Catapres) 0.1 mg PRN Q1HR PRN PO SBP > 180 or DBP > 100, MRX3; Start 08/29/19 at 11:15 Lorazepam (Ativan Inj) 2 mg PRN Q15MIN PRN IV SEE COMMENTS; Start 08/29/19 at 11:15; Status UNV Lorazepam (Ativan Inj) 4 mg PRN Q15MIN PRN IV SEE COMMENTS; Start 08/29/19 at 11:15; Status UNV Neomycin/ Polymyxin/ Bacitracin (Triple Antibiotic Ointment) 1 pkt BID TP Last administered on 09/01/19 08:29; Start 08/29/19 at 14:00 Amlodipine Besylate (Norvasc) 5 mg DAILY PO Last administered on 09/01/19 08:30; Start 08/30/19 at 09:00 Gabapentin (Neurontin) 600 mg QID PO Last administered on 09/01/19 08:29; Start 08/29/19 at 17:00 Lorazepam (Ativan Intensol) 0.5 mg PRN BID PRN PO AGITATION; Start 08/29/19 at 16:45 Pantoprazole Sodium (Protonix) 40 mg DAILYAC PO Last administered on 09/01/19 07:23; Start 08/29/19 at 17:00 Propranolol HCl (Inderal) 10 mg TID PO Last administered on 08/31/19 21:30; Start 08/29/19 at 21:00 Trazodone HCl (Desyrel) 100 mg QHS PO Last administered on 08/31/19 21:31; Start 08/29/19 at 21:00 Venlafaxine HCl (Effexor) 75 mg DAILY PO Last administered on 09/01/19 08:30; Start 08/30/19 at 09:00 Ibuprofen (Motrin) 400 mg PRN Q6HRS PRN PO INFLAMMATION Last administered on 09/01/19 03:12; Start 08/30/19 at 03:45 Ibuprofen (Motrin) 400 mg STK-MED ONCE PO ; Start 08/30/19 at 03:38; Stop 08/30/19 at 03:38; Status DC Haloperidol (Haldol) 10 mg 1X ONCE PO Last administered on 08/30/19at 04:42; Start 08/30/19 at 05:00; Stop 08/30/19 at 05:01; Status DC Haloperidol (Haldol) 5 mg PRN Q6HRS PRN PO AGITATION; Start 08/30/19 at 04:45 Doxycycline Hyclate (Vibra-Tab) 100 mg BID PO Last administered on 09/01/19 08:30; Start 08/30/19 at 16:00 Prednisone (Prednisone) 20 mg 1X ONCE PO Last administered on 08/30/19at 16:58; Start 08/30/19 at 15:45; Stop 08/30/19 at 15:47; Status DC Prednisone (Prednisone) 20 mg DAILY PO Last administered on 09/01/19at 08:30; Start 08/31/19 at 09:00 Sodium Chloride 1,000 ml @ 1,000 mls/hr 1X ONCE IV Last administered on 08/30/19at 16:49; Start 08/30/19 at 16:30; Stop 08/30/19 at 17:29; Status DC Lactobacillus Rhamnosus (Culturelle) 1 cap BID PO Last administered on 09/01/19at 08:30; Start 08/31/19 at 21:00 Active Scripts Active Reported Propranolol Hcl 10 Mg Tablet 1 Tab PO TID Pantoprazole Sodium (Pantoprazole Sodium) 40 Mg Tablet.dr 40 Mg PO DAILYAC Amlodipine Besylate 5 Mg Tablet 5 Mg PO DAILY Lorazepam 2 Mg/1 Ml Oral.conc 0.5 Mg PO PRN PRN Venlafaxine Hcl 75 Mg Tablet 75 Mg PO DAILY Trazodone Hcl 100 Mg Tablet 1 Tab PO QHS Gabapentin 300 Mg Capsule 600 Mg PO QID No Known Medications Prior To Admisstion (Info) Each 1 Each Vitals/I & O Vital Sign - Last 24 Hours 08/31/19 08/31/19 08/31/19 08/31/19 11:00 13:54 13:55 14:55 Temp 97.5 97.5 Pulse 84 84 Resp 18 B/P (MAP) 124/66 (85) 124/66 Pulse Ox 94 94 94 O2 Delivery Room Air Room Air Room Air 08/31/19 08/31/19 08/31/19 08/31/19 15:40 19:20 20:05 21:30 Temp 98.1 98.8 98.1 98.8 Pulse 87 62 62 Resp 18 17 B/P (MAP) 127/68 (87) 144/76 (98) 144/76 Pulse Ox 93 93 O2 Delivery Room Air Room Air Room Air 08/31/19 08/31/19 08/31/19 09/01/19 22:32 23:20 23:40 03:20 Temp 98.4 97.4 98.4 97.4 Pulse 54 50 Resp 17 17 B/P (MAP) 127/70 (89) 115/58 (77) Pulse Ox 93 92 O2 Delivery Room Air Room Air Room Air Room Air 09/01/19 09/01/19 09/01/19 09/01/19 07:24 07:54 08:00 08:25 Temp 97.9 97.9 Pulse 48 Resp 18 19 B/P (MAP) 145/70 (95) Pulse Ox 92 92 92 O2 Delivery Room Air Room Air Room Air Room Air 09/01/19 09/01/19 08:30 09:00 Pulse 48 48 B/P (MAP) 145/70 145/70 Intake and Output 08/31/19 08/31/19 09/01/19 15:00 23:00 07:00 Intake Total 480 ml 480 ml 740 ml Output Total 350 ml Balance 480 ml 480 ml 390 ml TOMASA GARNER MD Sep 01, 2019 10:02
--- NOTE | 2019-09-01 10:03 | PDOC ---
PROGRESS NOTES Assessment Problems Medical Problems: (1) Alcohol abuse Status: Acute (2) Chest pain Status: Acute (3) Head contusion Status: Acute (4) Rib fracture Status: Acute (5) Suicidal ideation Status: Acute Head injury, concussion, slip on ice Alcohol intoxication, level 281 at admission Alcoholism Suicidal ideation, depression Rib fractures Labile hypertension Plan Continue alcohol withdrawal protocol Psychiatric assessment team Okay for discharge No need for additional neurological studies Follow-up with neurology as needed. Subjective Feels better, wants to go home Objective Vital Signs Date Time Temp Pulse Resp B/P (MAP) Pulse Ox O2 Delivery O2 Flow Rate FiO2 09/01/19 09:00 48 145/70 09/01/19 08:25 19 92 Room Air 09/01/19 07:54 97.9 97.9 Intake and Output 09/01/19 07:00 Intake Total 1700 ml Output Total 350 ml Balance 1350 ml Intake Oral 1700 ml Output Urine Total 350 ml PHYSICAL EXAM Physical Exam: Alert. Oriented to time, place and person. PERRL. EOMI. CN: no focal findings. Muscle tone: normal. Muscle strength: 5/5 DTR: 2+ Plantar reflex: flexor Gait: antalgic. Sensory exam: no abnormal findings. No cerebellar signs elicited. Review of Relevant I have reviewed the following items kyler (where applicable) has been applied. Labs Laboratory Tests Test 09/01/19 01:17 Magnesium Level 1.5 mg/dL (1.8-2.4) Laboratory Tests Test 09/01/19 01:17 Magnesium Level 1.5 mg/dL (1.8-2.4) Medications Current Medications Lorazepam (Ativan Inj) 2 mg STK-MED ONCE .ROUTE ; Start 08/29/19 at 00:55; Stop 08/29/19 at 00:55; Status DC Multivitamins 10 ml/Thiamine HCl 100 mg/Folic Acid 1 mg/Sodium Chloride 1,011.2 ml @ 1,000.088 mls/hr 1X ONCE IV Last administered on 08/29/19at 01:56; Start 08/29/19 at 02:00; Stop 08/29/19 at 03:00; Status DC Lorazepam (Ativan Inj) 0.5 mg 1X ONCE IVP Last administered on 08/29/19at 01:45; Start 08/29/19 at 01:30; Stop 08/29/19 at 01:31; Status DC Lorazepam (Ativan Inj) 0.5 mg 1X ONCE IVP Last administered on 08/29/19at 02:57; Start 08/29/19 at 01:30; Stop 08/29/19 at 01:31; Status DC Magnesium Sulfate 50 ml @ 25 mls/hr 1X ONCE IV Last administered on 08/29/19at 03:00; Start 08/29/19 at 02:00; Stop 08/29/19 at 03:59; Status DC Diphtheria/ Tetanus/Acell Pertussis (Boostrix) 0.5 ml ONCE ONCE VAX IM Last administered on 08/29/19at 02:54; Start 08/29/19 at 02:30; Stop 08/29/19 at 02:31; Status DC Iohexol (Omnipaque 300 Mg/ml) 75 ml 1X ONCE IV ; Start 08/29/19 at 02:30; Stop 08/29/19 at 02:31; Status DC Info (CONTRAST GIVEN -- Rx MONITORING) 1 each PRN DAILY PRN MC SEE COMMENTS; Start 08/29/19 at 02:15; Stop 08/31/19 at 02:14; Status DC Ondansetron HCl (Zofran) 4 mg PRN Q8HRS PRN IV NAUSEA/VOMITING 1ST CHOICE; Start 08/29/19 at 02:15; Stop 08/30/19 at 02:14; Status DC Lorazepam (Ativan Inj) 1 mg PRN Q1HR PRN IV For CIWA 8-14 Last administered on 08/29/19at 12:10; Start 08/29/19 at 02:15; Stop 08/30/19 at 15:36; Status DC Lorazepam (Ativan Inj) 2 mg PRN Q1HR PRN IV For CIWA 15 or greater Last administered on 08/29/19at 06:42; Start 08/29/19 at 02:15; Stop 08/30/19 at 15:36; Status DC Oxycodone/ Acetaminophen (Percocet 5/325) 1 tab PRN Q4HRS PRN PO PAIN; Start 08/29/19 at 05:30; Status Cancel Oxycodone HCl (Roxicodone) 5 mg PRN Q6HRS PRN PO PAIN Last administered on 09/01/19at 07:24; Start 08/29/19 at 08:30 Multivitamins 10 ml/Thiamine HCl 100 mg/Folic Acid 1 mg/Sodium Chloride 1,011.2 ml @ 100 mls/ hr DAILY IV Last administered on 09/01/19at 08:31; Start 08/30/19 at 09:00; Stop 09/02/19 at 19:07 Multivitamins (Thera M Plus) 1 tab DAILY PO ; Start 09/03/19 at 09:00 Folic Acid (Folic Acid) 1 mg DAILY PO ; Start 09/03/19 at 09:00 Thiamine Mononitrate (Vitamin B-1) 100 mg DAILY PO ; Start 09/03/19 at 09:00 Lorazepam (Ativan) 4 mg PRN Q1HR PRN PO For CIWA 8-14; Start 08/29/19 at 11:15 Lorazepam (Ativan) 8 mg PRN Q1HR PRN PO For CIWA 15 or greater; Start 08/29/19 at 11:15 Lorazepam (Ativan Inj) 2 mg PRN Q1HR PRN IV For CIWA 8-14 Last administered on 08/31/19at 18:30; Start 08/29/19 at 11:15 Lorazepam (Ativan Inj) 4 mg PRN Q1HR PRN IV For CIWA 15 or greater Last administered on 08/30/19at 03:43; Start 08/29/19 at 11:15 Clonidine HCl (Catapres) 0.1 mg PRN Q1HR PRN PO SBP > 180 or DBP > 100, MRX3; Start 08/29/19 at 11:15 Lorazepam (Ativan Inj) 2 mg PRN Q15MIN PRN IV SEE COMMENTS; Start 08/29/19 at 11:15; Status UNV Lorazepam (Ativan Inj) 4 mg PRN Q15MIN PRN IV SEE COMMENTS; Start 08/29/19 at 11:15; Status UNV Neomycin/ Polymyxin/ Bacitracin (Triple Antibiotic Ointment) 1 pkt BID TP Last administered on 09/01/19at 08:29; Start 08/29/19 at 14:00 Amlodipine Besylate (Norvasc) 5 mg DAILY PO Last administered on 09/01/19at 08:30; Start 08/30/19 at 09:00 Gabapentin (Neurontin) 600 mg QID PO Last administered on 09/01/19 08:29; Start 08/29/19 at 17:00 Lorazepam (Ativan Intensol) 0.5 mg PRN BID PRN PO AGITATION; Start 08/29/19 at 16:45 Pantoprazole Sodium (Protonix) 40 mg DAILYAC PO Last administered on 09/01/19 07:23; Start 08/29/19 at 17:00 Propranolol HCl (Inderal) 10 mg TID PO Last administered on 08/31/19 21:30; Start 08/29/19 at 21:00 Trazodone HCl (Desyrel) 100 mg QHS PO Last administered on 08/31/19 21:31; Start 08/29/19 at 21:00 Venlafaxine HCl (Effexor) 75 mg DAILY PO Last administered on 09/01/19 08:30; Start 08/30/19 at 09:00 Ibuprofen (Motrin) 400 mg PRN Q6HRS PRN PO INFLAMMATION Last administered on 09/01/19 03:12; Start 08/30/19 at 03:45 Ibuprofen (Motrin) 400 mg STK-MED ONCE PO ; Start 08/30/19 at 03:38; Stop 08/30/19 at 03:38; Status DC Haloperidol (Haldol) 10 mg 1X ONCE PO Last administered on 08/30/19 04:42; Start 08/30/19 at 05:00; Stop 08/30/19 at 05:01; Status DC Haloperidol (Haldol) 5 mg PRN Q6HRS PRN PO AGITATION; Start 08/30/19 at 04:45 Doxycycline Hyclate (Vibra-Tab) 100 mg BID PO Last administered on 09/01/19 08:30; Start 08/30/19 at 16:00 Prednisone (Prednisone) 20 mg 1X ONCE PO Last administered on 08/30/19 16: 58; Start 08/30/19 at 15:45; Stop 08/30/19 at 15:47; Status DC Prednisone (Prednisone) 20 mg DAILY PO Last administered on 09/01/19 08:30; Start 08/31/19 at 09:00 Sodium Chloride 1,000 ml @ 1,000 mls/hr 1X ONCE IV Last administered on 08/30/19at 16:49; Start 08/30/19 at 16:30; Stop 08/30/19 at 17:29; Status DC Lactobacillus Rhamnosus (Culturelle) 1 cap BID PO Last administered on 09/01/19at 08:30; Start 08/31/19 at 21:00 Active Scripts Active Reported Propranolol Hcl 10 Mg Tablet 1 Tab PO TID Pantoprazole Sodium (Pantoprazole Sodium) 40 Mg Tablet.dr 40 Mg PO DAILYAC Amlodipine Besylate 5 Mg Tablet 5 Mg PO DAILY Lorazepam 2 Mg/1 Ml Oral.conc 0.5 Mg PO PRN PRN Venlafaxine Hcl 75 Mg Tablet 75 Mg PO DAILY Trazodone Hcl 100 Mg Tablet 1 Tab PO QHS Gabapentin 300 Mg Capsule 600 Mg PO QID No Known Medications Prior To Admisstion (Info) Each 1 Each Vitals/I & O Vital Sign - Last 24 Hours 08/31/19 08/31/19 08/31/19 08/31/19 11:00 13:54 13:55 14:55 Temp 97.5 97.5 Pulse 84 84 Resp 18 B/P (MAP) 124/66 (85) 124/66 Pulse Ox 94 94 94 O2 Delivery Room Air Room Air Room Air 08/31/19 08/31/19 08/31/19 08/31/19 15:40 19:20 20:05 21:30 Temp 98.1 98.8 98.1 98.8 Pulse 87 62 62 Resp 18 17 B/P (MAP) 127/68 (87) 144/76 (98) 144/76 Pulse Ox 93 93 O2 Delivery Room Air Room Air Room Air 08/31/19 08/31/19 08/31/19 09/01/19 22:32 23:20 23:40 03:20 Temp 98.4 97.4 98.4 97.4 Pulse 54 50 Resp 17 B/P (MAP) 127/70 (89) 115/58 (77) Pulse Ox 93 92 O2 Delivery Room Air Room Air Room Air Room Air 09/01/19 09/01/19 09/01/19 09/01/19 07:24 07:54 08:00 08:25 Temp 97.9 97.9 Pulse 48 Resp 19 B/P (MAP) 145/70 (95) Pulse Ox 92 92 92 O2 Delivery Room Air Room Air Room Air Room Air 09/01/19 09/01/19 08:30 09:00 Pulse 48 48 B/P (MAP) 145/70 145/70 Intake and Output 08/31/19 08/31/19 09/01/19 15:00 23:00 07:00 Intake Total 480 ml 480 ml 740 ml Output Total 350 ml Balance 480 ml 480 ml 390 ml MAIKOL HURTADO MD Sep 01, 2019 10:03
--- NOTE | 2019-09-01 10:06 | NUR ---
SW following pt. Spoke with RN and pt will need an eval by Cardiology team. RN reports pt has been staying in bed most of the time and might benefit from PT/OT eval.
--- NOTE | 2019-09-01 10:48 | NUR ---
The patient pulled his IV out and removed his heart monitor. He was dressed in his jeans and jacket and walked to the nurse station then verbalized that he's going home. This nurse explained to him that he needs to be evaluated by cardiology due to changes in his heart rate/ rhythm. The patient was told that it is unsafe for him to go home at this time. He apologized and agreed to continue with our plan of care. The patient is currently resting in bed, call light within reach. We'll continue to monitor.
[2019-09-01] MEDS ORDERED: MAGNESIUM SULFATE 2GM 50 ML IV ONE (11:30)
[2019-09-01 11:32] VITALS: BP 146/82
--- NOTE | 2019-09-01 11:34 | PDOC ---
PULMONARY PROGRESS NOTES Subjective PT NOT MORE SOA PAIN AT TIMES Vitals Vital Signs Date Time Temp Pulse Resp B/P (MAP) Pulse Ox O2 Delivery O2 Flow Rate FiO2 09/01/19 09:00 48 145/70 09/01/19 08:25 19 92 Room Air 09/01/19 07:54 97.9 97.9 ROS: No Nausea, No Abdominal Pain, No Increase Cough General: Alert Lungs: Clear Cardiovascular: S1, S2 Abdomen: Soft Neuro Exam: Alert Extremities: No Edema Skin: Warm Labs Laboratory Tests Test 09/01/19 01:17 Magnesium Level 1.5 mg/dL (1.8-2.4) Laboratory Tests Test 09/01/19 01:17 Magnesium Level 1.5 mg/dL (1.8-2.4) Medications Active Scripts Medications Dose Route/Sig Max Daily Dose Days Date Category Propranolol Hcl 10 Mg Tablet 1 Tab PO TID 08/29/19 Reported Pantoprazole Sodium (Pantoprazole Sodium) 40 Mg Tablet.dr 40 Mg PO DAILYAC 08/29/19 Reported Amlodipine Besylate 5 Mg Tablet 5 Mg PO DAILY 08/29/19 Reported Lorazepam 2 Mg/1 Ml Oral.conc 0.5 Mg PO PRN PRN 08/29/19 Reported Venlafaxine Hcl 75 Mg Tablet 75 Mg PO DAILY 08/29/19 Reported Trazodone Hcl 100 Mg Tablet 1 Tab PO QHS 08/29/19 Reported Gabapentin 300 Mg Capsule 600 Mg PO QID 08/29/19 Reported No Known Medications Prior To Admisstion (Info) Each 1 Each 09/18/14 Reported Impression . IMPRESSION: 1. dyspnea secondary to chronic obstructive pulmonary disease along with recent fall resulting in rib fractures. 2. Chronic obstructive pulmonary disease. 3. Alcoholism. 4. Hepatitis C. 5. Polysubstance abuse. 6. Multiple rib Fx Plan . ADD IS 1. Continue supportive care. 2. Treat acute nonspecific bronchitis. 3. Manage pain. 4. Alcohol withdrawal precaution. 5. stable pulmonary cobian APOLONIA LUCERO MD Sep 01, 2019 11:34
--- NOTE | 2019-09-01 12:38 | PDOC2 ---
CARDIAC CONSULT DATE OF CONSULT Date of Consult DATE: 09/01/19 TIME: 12:31 REASON FOR CONSULT Reason for Consult: V-tach REFERRING PHYSICIAN Referring Physician: Dr. Presley SOURCE Source: Chart review, Patient HISTORY OF PRESENT ILLNESS HISTORY OF PRESENT ILLNESS This is a 59 yo male who presented secondary to fall. Patient was getting out of care and slipped on the ice, subsequently falling on his right side. Striking his head and right chest. Had difficulty getting up. Roommate was present and able to get him up. There was no loss of consciousness, but did have an abrasion on the head. Has a history of alcohol abuse. Alcohol level 281 upon arrival. No complaints of dizziness, diaphoresis, palpitations, or nausea/vomiting. Had episode of 8-beat NSVT overnight, which prompted this consult. Patient godinez complain of right rib pain. CT chest noted with multiple right rib fractures. Does have a history of hypertension. Does not routinely take his medications. PAST MEDICAL HISTORY Cardiovascular: HTN Pulmonary: COPD Hepatobiliary: Hep A/B/C Psych: Anxiety, Addictions (ETOH), Bipolar, Depression PAST SURGICAL HISTORY Past Surgical History: No pertinent history FAMILY HISTORY Family History: Other (no pertinent hx) SOCIAL HISTORY Smoke: 1 pack per day ALCOHOL: heavy (5 beers per day) Drugs: Marijuana Lives: Roommate CURRENT MEDICATIONS CURRENT MEDICATIONS Current Medications Medications (Trade) Dose Ordered Sig/Nolan Route PRN Reason Start Time Stop Time Status Last Admin Dose Admin Lactobacillus Rhamnosus (Culturelle) 1 cap BID PO 08/31/19 21:00 09/01/19 08:30 Magnesium Sulfate 50 ml @ 25 mls/hr 1X ONCE IV 09/01/19 11:30 09/01/19 13:29 09/01/19 11:56 ALLERGIES ALLERGIES: Coded Allergies: No Known Medication Allergies (Verified Allergy, Unknown, 08/30/19) acetaminophen (Verified Adverse Reaction, Intermediate, has hepatitis C, 09/18/14) ROS Review of System 14 point ROS conducted with pertinent positives noted above in hPI PHYSICAL EXAM General: Alert, Oriented X3, Cooperative, No acute distress HEENT: Atraumatic, Mucous membr. moist/pink Lungs: Clear to auscultation, Other (right chest tenderness upon palpation) Heart: Regular rate (SR/SB. lowest 39 overnight. No pauses), Normal S1, Normal S2 Abdomen: Soft Extremities: No edema, Normal pulses Skin: No significant lesion Neuro: Normal speech, Strength at 5/5 X4 ext, Sensation intact Psych/Mental Status: Mood NL MUSCULOSKELETAL: Osteoarthritic changes both hands VITALS/I&O VITALS/I&O: Vital Signs Date Time Temp Pulse Resp B/P (MAP) Pulse Ox O2 Delivery O2 Flow Rate FiO2 09/01/19 11:32 98.4 52 18 146/82 (103) 92 Room Air 98.4 I & O 08/31/19 08/31/19 09/01/19 15:00 23:00 07:00 Intake Total 480 ml 480 ml 740 ml Output Total 350 ml Balance 480 ml 480 ml 390 ml LABS Lab: Laboratory Tests Test 09/01/19 01:17 Magnesium Level 1.5 mg/dL (1.8-2.4) L ASSESSMENT/PLAN ASSESSMENT/PLAN 1. Traumatic fall. slipped on ice. multiple right rib fractures 2. Alcoholism 3. Hypertension; noncompliance with antihypertensive therapy 4. Depression, anxiety, bipolar 5. Arrhythmia; one episode of 8-beat NSVT noted overnight on tele. 6. Hypomagnesemia 7. Bradycardia, sinus. Lowest 39 overnight. No pauses. Recommendations Replace Mg Keep Mg >2.0 adn Mg > 4.0 Echo to assess LV systolic function Add lisinopril for BP control Avoid AV gita blocking agents. Supportive care JOSE LORA APRN Sep 01, 2019 12:38
[2019-09-01] MEDS: LIDOCAINE (700MG/PATCH) PATCH. TD SCH (12:49)
[2019-09-01] MEDS: NICOTINE 14MG PATCH. TD PRN (12:49)
[2019-09-01] MEDS ORDERED: LORazepam 1 MG TABLET PO PRN (14:45)
[2019-09-01 15:00] VITALS: BP 144/84
[2019-09-01 16:27] LABS: BASO % 0 % (0-3); EOS % 0 % (0-3); HEMATOCRIT 38.8 % (39.0-53.0); LYMPH # 1.1 x10^3/uL (1.0-4.8); LYMPH % 11 % (24-48); MEAN CORPUSCULAR HEMOGLOBIN 34 pg (25-35); MEAN CORPUSCULAR HGB CONC 34 g/dL (31-37); MEAN CORPUSCULAR VOLUME 102 fL (79-100); MONO # 0.6 x10^3/uL (0.0-1.1); MONO % 6 % (0-9); NEUT % 83 % (31-73); PLATELET COUNT 212 x10^3/uL (140-400); RED CELL DISTRIBUTION WIDTH 13.5 % (11.5-14.5); WHITE BLOOD COUNT 9.6 x10^3/uL (4.0-11.0)
[2019-09-01 16:45] LABS: ALBUMIN/GLOBULIN RATIO 0.8 (1.0-1.7); CALCIUM 8.1 mg/dL (8.5-10.1); CREATININE 1.2 mg/dL (0.7-1.3); GFR 61.6; TOTAL BILIRUBIN 0.5 mg/dL (0.2-1.0); TOTAL PROTEIN 6.8 g/dL (6.4-8.2)
--- NOTE | 2019-09-01 17:20 | CARD ---
MR#: [id number] Date of Study: 09/01/2019 Ordering Physician: RIVKA HERNANDEZ, Referring Physician: RIVKA HERNANDEZ, Tech: Heather Schwarz APPROVED REPORT EXAM: Two-dimensional and M-mode echocardiogram with Doppler and color Doppler. Other Information Quality : AverageHR: 56bpm INDICATION Chest Pain Ventricular Tachycardia 2D DIMENSIONS RVDd3.4 (2.9-3.5cm)Left Atrium(2D)3.3 (1.6-4.0cm) IVSd1.2 (0.7-1.1cm)Aortic Root(2D)2.9 (2.0-3.7cm) LVDd4.0 (3.9-5.9cm)LVOT Diameter2.0 (1.8-2.4cm) PWd1.0 (0.7-1.1cm)LVDs2.1 (2.5-4.0cm) FS (%) 46.4 %SV54.5 ml LVEF(%)78.3 (>50%) Aortic Valve AoV Peak Tyler.134.8cm/sAoV VTI31.6cm AO Peak GR.7.3mmHgLVOT VTI 21.04cm AO Mean GR.4mmHg Mitral Valve MV E Mgsmfbht030.6cm/sMV E Peak Gr.6mmHg MV DECEL [id number] A Xqckrkth43.1cm/s MV E Mean Gr.2mmHgE/A Ratio1.6 TDI Lateral E' P. V9.72cm/sMedial E' P. V7.34cm/s E/Lateral E'10.8E/Medial E'14.3 Tricuspid Valve TR P. Rnlegcwl070rr/sRAP [id number] TR Peak Gr.[id number] Pulmonary Vein S1 Kfmftvti14.8cm/sS2 Lrewbfrz89.17cm/s D2 Yfxbelpy96.2cm/sPVa [id number] LEFT VENTRICLE The left ventricle is normal size. There is mild concentric left ventricular hypertrophy. The left ve ntricular systolic function is normal and the ejection fraction is within normal range. The Ejection Fraction is 55%. Wall motion consistent with a conduction abnormality. Normal wall motion otherwise. The left ventricular diastolic function and filling is normal for age. RIGHT VENTRICLE The right ventricle is normal size. There is normal right ventricular wall thickness. The right ventr icular systolic function is normal. ATRIA The left atrium size is normal. The right atrium size is normal. The interatrial septum is intact wit h no evidence for an atrial septal defect or patent foramen ovale as noted on 2-D or Doppler imaging. AORTIC VALVE The aortic valve is thickened but opens well. Doppler and Color Flow revealed no significant aortic r egurgitation. There is no significant aortic valvular stenosis. MITRAL VALVE The mitral valve is normal in structure and function. There is no evidence of mitral valve prolapse. There is no mitral valve stenosis. Doppler and Color-flow revealed trace mitral regurgitation. TRICUSPID VALVE The tricuspid valve is normal in structure and function. Doppler and Color Flow revealed trace tricus pid regurgitation with an estimated PAP of 32 mmHg. There is no tricuspid valve stenosis. PULMONIC VALVE The pulmonic valve is not well visualized. Doppler and Color Flow revealed trace pulmonic valvular re gurgitation. There is no pulmonic valvular stenosis. GREAT VESSELS The aortic root is normal in size. The IVC is normal in size and collapses >50% with inspiration. PERICARDIAL EFFUSION There is no evidence of significant pericardial effusion. Critical Notification Critical Value: No <Conclusion> The left ventricular systolic function is normal and the ejection fraction is within normal range. Th e Ejection Fraction is 55%. Wall motion consistent with a conduction abnormality. Normal wall motion otherwise. Signed by : Marvin Nava, Electronically Approved : 09/01/2019 17:20:03
[2019-09-01] MEDS: LISINOPRIL 5 MG TABLET. PO SCH (17:24)
[2019-09-01 19:52] VITALS: BP 157/74
[2019-09-01] MEDS ORDERED: PATCH REMOVAL. MC SCH (21:00)
[2019-09-01] MEDS: traZODone 100 MG TABLET. PO SCH (21:08)
[2019-09-01 23:38] VITALS: BP 146/65
[2019-09-02 03:28] VITALS: BP 130/61
[2019-09-02 05:09] LABS: CALCIUM 7.9 mg/dL (8.5-10.1); CREATININE 1.1 mg/dL (0.7-1.3); GFR 68.1; MAGNESIUM 1.8 mg/dL (1.8-2.4); POTASSIUM 3.5 mmol/L (3.5-5.1)
[2019-09-02 07:50] VITALS: BP 145/79
--- NOTE | 2019-09-02 07:59 | RAD ---
EXAM: CHEST 2 VIEWS. HISTORY: Chest pain. COMPARISON: 08/29/2019. FINDINGS: Frontal and lateral views of the chest are obtained. There are small bilateral pleural effusions. Interstitial opacities with a basilar predominance likely reflects mild pulmonary edema. There is no pneumothorax. The heart is not enlarged. IMPRESSION: 1. Small bilateral pleural effusions. Mild pulmonary edema. Electronically signed by: Gabino Martinez MD (09/02/2019 7:57 AM) [facility]
[2019-09-02] MEDS: VENLAFAXINE 75 MG TABLET. PO SCH (08:29)
[2019-09-02] MEDS: GABAPENTIN 300 MG CAPSULE. PO SCH (08:29)
[2019-09-02] MEDS: predniSONE 20 MG TABLET PO SCH (08:29)
[2019-09-02] MEDS: LACTOBACILLUS RHAMNOSUS GG 1 CAPSULE. PO SCH (08:29)
[2019-09-02] MEDS: oxyCODONE IR 5 MG TABLET PO PRN (08:30)
[2019-09-02] MEDS: PANTOPRAZOLE 40 MG TABLET.DR. PO SCH (08:30)
[2019-09-02] MEDS: NEOMY/BACITR/POLYMYXIN OINT PACKET. TP SCH (08:30)
[2019-09-02] MEDS: DOXYCYCLINE HYCLATE 100 MG TABLET PO SCH (08:30)
[2019-09-02] MEDS: amLODIPine BESYLATE 5 MG TABLET PO SCH (08:30)
[2019-09-02] MEDS: LIDOCAINE (700MG/PATCH) PATCH. TD SCH (08:31)
[2019-09-02] MEDS ORDERED: FOLIC ACID 1 MG TABLET. PO SCH (09:00)
[2019-09-02] MEDS ORDERED: MULTIVITAMIN with MINERAL TABLET. PO SCH (09:00)
[2019-09-02] MEDS: PROPRANOLOL 10 MG TABLET. PO SCH (09:00)
[2019-09-02] MEDS ORDERED: THIAMINE 100 MG TABLET. PO SCH (09:00)
--- NOTE | 2019-09-02 09:14 | PDOC ---
PROGRESS NOTES History of Present Illness History of Present Illness VTE Prophylaxis Ordered VTE Prophylaxis Devices: No VTE Pharmacological Prophylaxi: Yes DISCHARGE DX Assessment/Plan Impression: Suicidal ideation, resolved MAJOR DEPRESSION Alcohol abuse, SEVERE Chest pain DUE TO RIB FX Head contusion Rib fracture Minimally displaced right 4th rib fracture. Nondisplaced right 2nd, 3rd, 5th, 6th, and 7th rib fractures. No pneumothorax. No major traumatic intrathoracic injury. LABILE HTN hypomagnesemia ADMITTED TELE ALCOHOL WITHDRAWAL PRECAUTIONS pat team pulm consult PAIN CONTROL DVT PROPHYLAXIS neurology consult NORVASC 5 MG PO DAILY echo 09/01 2 gm mg iv x 1 09/01 09/01 chest wall pain persistent, slow to resolve, agitated at times 09/02 UP IN ROOM, WANTS TO GO HOME, AGREES TO NOT DRINK, ATTEND AA 33 MIN PT EXAM, CHART REVIEW D/C PLANNING , > 50% of time spent with exam, chart review, pt care coordination Vitals Vitals Vital Signs Date Time Temp Pulse Resp B/P (MAP) Pulse Ox O2 Delivery O2 Flow Rate FiO2 09/02/19 08:30 50 145/79 09/02/19 08:30 94 Room Air 09/02/19 07:50 98.0 18 98.0 Physical Exam General: Alert, Oriented X3, Cooperative, No acute distress Heart: Regular rate (SR/SB. lowest 39 overnight. No pauses), Normal S1, Normal S2 Lungs: Clear Abdomen: Normal bowel sounds, Soft Extremities: No cyanosis, No edema, Normal pulses Skin: No significant lesion Labs LABS EXAM: CHEST 2 VIEWS. HISTORY: Chest pain. COMPARISON: 08/29/2019. FINDINGS: Frontal and lateral views of the chest are obtained. There are small bilateral pleural effusions. Interstitial opacities with a basilar predominance likely reflects mild pulmonary edema. There is no pneumothorax. The heart is not enlarged. IMPRESSION: 1. Small bilateral pleural effusions. Mild pulmonary edema. Electronically signed by: Gabino Martinez MD (09/02/2019 7:57 AM) [facility] DICTATED and SIGNED BY: BRUCE MARTINEZ MD DATE: 09/02/19 0757 Laboratory Tests Test 09/01/19 16:20 09/02/19 04:05 White Blood Count 9.6 x10^3/uL (4.0-11.0) Red Blood Count 3.80 x10^6/uL (4.30-5.70) Hemoglobin 13.0 g/dL (13.0-17.5) Hematocrit 38.8 % (39.0-53.0) Mean Corpuscular Volume 102 fL (79-100) Mean Corpuscular Hemoglobin 34 pg (25-35) Mean Corpuscular Hemoglobin Concent 34 g/dL (31-37) Red Cell Distribution Width 13.5 % (11.5-14.5) Platelet Count 212 x10^3/uL (140-400) Neutrophils (%) (Auto) 83 % (31-73) Lymphocytes (%) (Auto) 11 % (24-48) Monocytes (%) (Auto) 6 % (0-9) Eosinophils (%) (Auto) 0 % (0-3) Basophils (%) (Auto) 0 % (0-3) Neutrophils # (Auto) 8.0 x10^3/uL (1.8-7.7) Lymphocytes # (Auto) 1.1 x10^3/uL (1.0-4.8) Monocytes # (Auto) 0.6 x10^3/uL (0.0-1.1) Eosinophils # (Auto) 0.0 x10^3/uL (0.0-0.7) Basophils # (Auto) 0.0 x10^3/uL (0.0-0.2) Sodium Level 139 mmol/L (136-145) 142 mmol/L (136-145) Potassium Level 4.0 mmol/L (3.5-5.1) 3.5 mmol/L (3.5-5.1) Chloride Level 108 mmol/L (98-107) 109 mmol/L (98-107) Carbon Dioxide Level 23 mmol/L (21-32) 23 mmol/L (21-32) Anion Gap 8 (6-14) 10 (6-14) Blood Urea Nitrogen 12 mg/dL (8-26) 10 mg/dL (8-26) Creatinine 1.2 mg/dL (0.7-1.3) 1.1 mg/dL (0.7-1.3) Estimated GFR (Cockcroft-Gault) 61.6 68.1 BUN/Creatinine Ratio 10 (6-20) Glucose Level 150 mg/dL (70-99) 89 mg/dL (70-99) Calcium Level 8.1 mg/dL (8.5-10.1) 7.9 mg/dL (8.5-10.1) Total Bilirubin 0.5 mg/dL (0.2-1.0) Aspartate Amino Transf (AST/SGOT) 23 U/L (15-37) Alanine Aminotransferase (ALT/SGPT) 42 U/L (16-63) Alkaline Phosphatase 54 U/L (46-116) Total Protein 6.8 g/dL (6.4-8.2) Albumin 3.0 g/dL (3.4-5.0) Albumin/Globulin Ratio 0.8 (1.0-1.7) Magnesium Level 1.8 mg/dL (1.8-2.4) Assessment and Plan Assessmemt and Plan Problems Medical Problems: (1) Alcohol abuse Status: Acute (2) Chest pain Status: Acute (3) Head contusion Status: Acute (4) Rib fracture Status: Acute (5) Suicidal ideation Status: Acute Comment Review of Relevant I have reviewed the following items kyler (where applicable) has been applied. Labs Laboratory Tests Test 09/01/19 01:17 09/01/19 16:20 09/02/19 04:05 Magnesium Level 1.5 mg/dL (1.8-2.4) 1.8 mg/dL (1.8-2.4) White Blood Count 9.6 x10^3/uL (4.0-11.0) Red Blood Count 3.80 x10^6/uL (4.30-5.70) Hemoglobin 13.0 g/dL (13.0-17.5) Hematocrit 38.8 % (39.0-53.0) Mean Corpuscular Volume 102 fL (79-100) Mean Corpuscular Hemoglobin 34 pg (25-35) Mean Corpuscular Hemoglobin Concent 34 g/dL (31-37) Red Cell Distribution Width 13.5 % (11.5-14.5) Platelet Count 212 x10^3/uL (140-400) Neutrophils (%) (Auto) 83 % (31-73) Lymphocytes (%) (Auto) 11 % (24-48) Monocytes (%) (Auto) 6 % (0-9) Eosinophils (%) (Auto) 0 % (0-3) Basophils (%) (Auto) 0 % (0-3) Neutrophils # (Auto) 8.0 x10^3/uL (1.8-7.7) Lymphocytes # (Auto) 1.1 x10^3/uL (1.0-4.8) Monocytes # (Auto) 0.6 x10^3/uL (0.0-1.1) Eosinophils # (Auto) 0.0 x10^3/uL (0.0-0.7) Basophils # (Auto) 0.0 x10^3/uL (0.0-0.2) Sodium Level 139 mmol/L (136-145) 142 mmol/L (136-145) Potassium Level 4.0 mmol/L (3.5-5.1) 3.5 mmol/L (3.5-5.1) Chloride Level 108 mmol/L (98-107) 109 mmol/L (98-107) Carbon Dioxide Level 23 mmol/L (21-32) 23 mmol/L (21-32) Anion Gap 8 (6-14) 10 (6-14) Blood Urea Nitrogen 12 mg/dL (8-26) 10 mg/dL (8-26) Creatinine 1.2 mg/dL (0.7-1.3) 1.1 mg/dL (0.7-1.3) Estimated GFR (Cockcroft-Gault) 61.6 68.1 BUN/Creatinine Ratio 10 (6-20) Glucose Level 150 mg/dL (70-99) 89 mg/dL (70-99) Calcium Level 8.1 mg/dL (8.5-10.1) 7.9 mg/dL (8.5-10.1) Total Bilirubin 0.5 mg/dL (0.2-1.0) Aspartate Amino Transf (AST/SGOT) 23 U/L (15-37) Alanine Aminotransferase (ALT/SGPT) 42 U/L (16-63) Alkaline Phosphatase 54 U/L (46-116) Total Protein 6.8 g/dL (6.4-8.2) Albumin 3.0 g/dL (3.4-5.0) Albumin/Globulin Ratio 0.8 (1.0-1.7) Laboratory Tests Test 09/01/19 16:20 09/02/19 04:05 White Blood Count 9.6 x10^3/uL (4.0-11.0) Red Blood Count 3.80 x10^6/uL (4.30-5.70) Hemoglobin 13.0 g/dL (13.0-17.5) Hematocrit 38.8 % (39.0-53.0) Mean Corpuscular Volume 102 fL (79-100) Mean Corpuscular Hemoglobin 34 pg (25-35) Mean Corpuscular Hemoglobin Concent 34 g/dL (31-37) Red Cell Distribution Width 13.5 % (11.5-14.5) Platelet Count 212 x10^3/uL (140-400) Neutrophils (%) (Auto) 83 % (31-73) Lymphocytes (%) (Auto) 11 % (24-48) Monocytes (%) (Auto) 6 % (0-9) Eosinophils (%) (Auto) 0 % (0-3) Basophils (%) (Auto) 0 % (0-3) Neutrophils # (Auto) 8.0 x10^3/uL (1.8-7.7) Lymphocytes # (Auto) 1.1 x10^3/uL (1.0-4.8) Monocytes # (Auto) 0.6 x10^3/uL (0.0-1.1) Eosinophils # (Auto) 0.0 x10^3/uL (0.0-0.7) Basophils # (Auto) 0.0 x10^3/uL (0.0-0.2) Sodium Level 139 mmol/L (136-145) 142 mmol/L (136-145) Potassium Level 4.0 mmol/L (3.5-5.1) 3.5 mmol/L (3.5-5.1) Chloride Level 108 mmol/L (98-107) 109 mmol/L (98-107) Carbon Dioxide Level 23 mmol/L (21-32) 23 mmol/L (21-32) Anion Gap 8 (6-14) 10 (6-14) Blood Urea Nitrogen 12 mg/dL (8-26) 10 mg/dL (8-26) Creatinine 1.2 mg/dL (0.7-1.3) 1.1 mg/dL (0.7-1.3) Estimated GFR (Cockcroft-Gault) 61.6 68.1 BUN/Creatinine Ratio 10 (6-20) Glucose Level 150 mg/dL (70-99) 89 mg/dL (70-99) Calcium Level 8.1 mg/dL (8.5-10.1) 7.9 mg/dL (8.5-10.1) Total Bilirubin 0.5 mg/dL (0.2-1.0) Aspartate Amino Transf (AST/SGOT) 23 U/L (15-37) Alanine Aminotransferase (ALT/SGPT) 42 U/L (16-63) Alkaline Phosphatase 54 U/L (46-116) Total Protein 6.8 g/dL (6.4-8.2) Albumin 3.0 g/dL (3.4-5.0) Albumin/Globulin Ratio 0.8 (1.0-1.7) Magnesium Level 1.8 mg/dL (1.8-2.4) Microbiology 08/29/19 Urine Culture - Final, Complete 08/29/19 Urine Culture Result 1 (MARIAH) - Final, Complete Medications Current Medications Lorazepam (Ativan Inj) 2 mg STK-MED ONCE .ROUTE ; Start 08/29/19 at 00:55; Stop 08/29/19 at 00:55; Status DC Multivitamins 10 ml/Thiamine HCl 100 mg/Folic Acid 1 mg/Sodium Chloride 1,011.2 ml @ 1,000.088 mls/hr 1X ONCE IV Last administered on 08/29/19at 01:56; Start 08/29/19 at 02:00; Stop 08/29/19 at 03:00; Status DC Lorazepam (Ativan Inj) 0.5 mg 1X ONCE IVP Last administered on 08/29/19at 01:45; Start 08/29/19 at 01:30; Stop 08/29/19 at 01:31; Status DC Lorazepam (Ativan Inj) 0.5 mg 1X ONCE IVP Last administered on 08/29/19at 02:57; Start 08/29/19 at 01:30; Stop 08/29/19 at 01:31; Status DC Magnesium Sulfate 50 ml @ 25 mls/hr 1X ONCE IV Last administered on 08/29/19at 03:00; Start 08/29/19 at 02:00; Stop 08/29/19 at 03:59; Status DC Diphtheria/ Tetanus/Acell Pertussis (Boostrix) 0.5 ml ONCE ONCE VAX IM Last administered on 08/29/19at 02:54; Start 08/29/19 at 02:30; Stop 08/29/19 at 02:31; Status DC Iohexol (Omnipaque 300 Mg/ml) 75 ml 1X ONCE IV ; Start 08/29/19 at 02:30; Stop 08/29/19 at 02:31; Status DC Info (CONTRAST GIVEN -- Rx MONITORING) 1 each PRN DAILY PRN MC SEE COMMENTS; Start 08/29/19 at 02:15; Stop 08/31/19 at 02:14; Status DC Ondansetron HCl (Zofran) 4 mg PRN Q8HRS PRN IV NAUSEA/VOMITING 1ST CHOICE; Start 08/29/19 at 02:15; Stop 08/30/19 at 02:14; Status DC Lorazepam (Ativan Inj) 1 mg PRN Q1HR PRN IV For CIWA 8-14 Last administered on 08/29/19at 12:10; Start 08/29/19 at 02:15; Stop 08/30/19 at 15:36; Status DC Lorazepam (Ativan Inj) 2 mg PRN Q1HR PRN IV For CIWA 15 or greater Last adminis tered on 08/29/19at 06:42; Start 08/29/19 at 02:15; Stop 08/30/19 at 15:36; Status DC Oxycodone/ Acetaminophen (Percocet 5/325) 1 tab PRN Q4HRS PRN PO PAIN; Start 08/29/19 at 05:30; Status Cancel Oxycodone HCl (Roxicodone) 5 mg PRN Q6HRS PRN PO PAIN Last administered on 09/02/19at 08:30; Start 08/29/19 at 08:30 Multivitamins 10 ml/Thiamine HCl 100 mg/Folic Acid 1 mg/Sodium Chloride 1,011.2 ml @ 100 mls/ hr DAILY IV Last administered on 09/01/19at 08:31; Start 08/30/19 at 09:00; Stop 09/01/19 at 23:00; Status DC Multivitamins (Thera M Plus) 1 tab DAILY PO Last administered on 09/02/19 08:29; Start 09/02/19 at 09:00 Folic Acid (Folic Acid) 1 mg DAILY PO Last administered on 09/02/19 08:29; Start 09/02/19 at 09:00 Thiamine Mononitrate (Vitamin B-1) 100 mg DAILY PO Last administered on 09/02/19 08:29; Start 09/02/19 at 09:00 Lorazepam (Ativan) 4 mg PRN Q1HR PRN PO For CIWA 8-14; Start 08/29/19 at 11:15 Lorazepam (Ativan) 8 mg PRN Q1HR PRN PO For CIWA 15 or greater; Start 08/29/19 at 11:15 Lorazepam (Ativan Inj) 2 mg PRN Q1HR PRN IV For CIWA 8-14 Last administered on 08/31/19at 18:30; Start 08/29/19 at 11:15 Lorazepam (Ativan Inj) 4 mg PRN Q1HR PRN IV For CIWA 15 or greater Last administered on 08/30/19at 03:43; Start 08/29/19 at 11:15 Clonidine HCl (Catapres) 0.1 mg PRN Q1HR PRN PO SBP > 180 or DBP > 100, MRX3; Start 08/29/19 at 11:15; Stop 09/02/19 at 08:12; Status DC Lorazepam (Ativan Inj) 2 mg PRN Q15MIN PRN IV SEE COMMENTS; Start 08/29/19 at 11:15; Status UNV Lorazepam (Ativan Inj) 4 mg PRN Q15MIN PRN IV SEE COMMENTS; Start 08/29/19 at 11:15; Status UNV Neomycin/ Polymyxin/ Bacitracin (Triple Antibiotic Ointment) 1 pkt BID TP Last administered on 09/02/19 08:30; Start 08/29/19 at 14:00 Amlodipine Besylate (Norvasc) 5 mg DAILY PO Last administered on 09/02/19 08:30; Start 08/30/19 at 09:00 Gabapentin (Neurontin) 600 mg QID PO Last administered on 09/02/19 08:29; Start 08/29/19 at 17:00 Lorazepam (Ativan Intensol) 0.5 mg PRN BID PRN PO AGITATION; Start 08/29/19 at 16:45 Pantoprazole Sodium (Protonix) 40 mg DAILYAC PO Last administered on 09/02/19 08:30; Start 08/29/19 at 17:00 Propranolol HCl (Inderal) 10 mg TID PO Last administered on 08/31/19 21:30; Start 08/29/19 at 21:00 Trazodone HCl (Desyrel) 100 mg QHS PO Last administered on 09/01/19 21:08; Start 08/29/19 at 21:00 Venlafaxine HCl (Effexor) 75 mg DAILY PO Last administered on 09/02/19 08:29; Start 08/30/19 at 09:00 Ibuprofen (Motrin) 400 mg PRN Q6HRS PRN PO INFLAMMATION Last administered on 09/01/19 11:55; Start 08/30/19 at 03:45 Ibuprofen (Motrin) 400 mg STK-MED ONCE PO ; Start 08/30/19 at 03:38; Stop 08/30/19 at 03:38; Status DC Haloperidol (Haldol) 10 mg 1X ONCE PO Last administered on 08/30/19 04:42; Start 08/30/19 at 05:00; Stop 08/30/19 at 05:01; Status DC Haloperidol (Haldol) 5 mg PRN Q6HRS PRN PO AGITATION; Start 08/30/19 at 04:45 Doxycycline Hyclate (Vibra-Tab) 100 mg BID PO Last administered on 09/02/19 08:30; Start 08/30/19 at 16:00 Prednisone (Prednisone) 20 mg 1X ONCE PO Last administered on 08/30/19at 16:58; Start 08/30/19 at 15:45; Stop 08/30/19 at 15:47; Status DC Prednisone (Prednisone) 20 mg DAILY PO Last administered on 09/02/19 08:29; Start 08/31/19 at 09:00 Sodium Chloride 1,000 ml @ 1,000 mls/hr 1X ONCE IV Last administered on 08/30/19 16:49; Start 08/30/19 at 16:30; Stop 08/30/19 at 17:29; Status DC Lactobacillus Rhamnosus (Culturelle) 1 cap BID PO Last administered on 09/02/19 08:29; Start 08/31/19 at 21:00 Magnesium Sulfate 50 ml @ 25 mls/hr 1X ONCE IV Last administered on 09/01/19 11:56; Start 09/01/19 at 11:30; Stop 09/01/19 at 13:29; Status DC Lidocaine (Lidoderm) 1 patch DAILY TD Last administered on 09/02/19 08:31; Start 09/01/19 at 13:00 Miscellaneous (Lidoderm Patch Removal) 1 ea QHS MC Last administered on 09/01/19at 21:00; Start 09/01/19 at 21:00 Nicotine (Nicoderm Cq 14mg) 1 patch PRN DAILY PRN TD SMOKING CESSATION Last administered on 09/01/19 12:49; Start 09/01/19 at 12:30 Lorazepam (Ativan) 2 mg PRN Q6HRS PRN PO ANXIETY / AGITATION Last administered on 09/01/19 14:57; Start 09/01/19 at 14:45 Lisinopril (Prinivil) 5 mg DAILY PO Last administered on 09/01/19at 17:24; Start 09/01/19 at 16:30 Active Scripts Active Reported Propranolol Hcl 10 Mg Tablet 1 Tab PO TID Pantoprazole Sodium (Pantoprazole Sodium) 40 Mg Tablet.dr 40 Mg PO DAILYAC Amlodipine Besylate 5 Mg Tablet 5 Mg PO DAILY Lorazepam 2 Mg/1 Ml Oral.conc 0.5 Mg PO PRN PRN Venlafaxine Hcl 75 Mg Tablet 75 Mg PO DAILY Trazodone Hcl 100 Mg Tablet 1 Tab PO QHS Gabapentin 300 Mg Capsule 600 Mg PO QID No Known Medications Prior To Admisstion (Info) Each 1 Each Vitals/I & O Vital Sign - Last 24 Hours 09/01/19 09/01/19 09/01/19 09/01/19 11:32 14:00 15:00 17:23 Temp 98.4 98.3 98.4 98.3 Pulse 52 52 67 Resp 18 12 19 B/P (MAP) 146/82 (103) 146/82 144/84 (104) Pulse Ox 92 93 O2 Delivery Room Air Room Air Room Air 09/01/19 09/01/19 09/01/19 09/01/19 17:24 18:25 19:52 21:00 Temp 98.1 98.1 Pulse 67 47 47 Resp 19 16 B/P (MAP) 144/84 157/74 (101) 157/74 Pulse Ox 93 93 O2 Delivery Room Air Room Air 09/01/19 09/02/19 09/02/19 09/02/19 23:38 03:28 07:50 08:30 Temp 98.2 98.0 98.2 98.0 Pulse 61 48 50 Resp 18 16 18 B/P (MAP) 146/65 (92) 130/61 (84) 145/79 (101) Pulse Ox 94 93 94 94 O2 Delivery Room Air Room Air Room Air Room Air 09/02/19 08:30 Pulse 50 B/P (MAP) 145/79 Intake and Output 09/01/19 09/01/19 09/02/19 15:00 23:00 07:00 Intake Total 400 ml 550 ml 210 ml Output Total 250 ml Balance 400 ml 300 ml 210 ml TOMASA GARNER MD Sep 02, 2019 09:14
[2019-09-02] MEDS: IBUPROFEN 400 MG TABLET. PO PRN (09:58)
[2019-09-02] MEDS: NICOTINE 14MG PATCH. TD PRN (09:58)
[2019-09-02] MEDS: LISINOPRIL 5 MG TABLET. PO SCH (10:01)
--- NOTE | 2019-09-02 10:45 | PDOC ---
PULMONARY PROGRESS NOTES Subjective PT NOT MORE SOA PAIN AT TIMES Vitals Vital Signs Date Time Temp Pulse Resp B/P (MAP) Pulse Ox O2 Delivery O2 Flow Rate FiO2 09/02/19 10:01 50 145/79 09/02/19 08:30 94 Room Air 09/02/19 07:50 98.0 18 98.0 ROS: No Nausea, No Abdominal Pain, No Increase Cough General: Alert Lungs: Clear Cardiovascular: S1, S2 Abdomen: Soft Neuro Exam: Alert Extremities: No Edema Skin: Warm Labs Laboratory Tests Test 09/01/19 01:17 09/01/19 16:20 09/02/19 04:05 Magnesium Level 1.5 mg/dL (1.8-2.4) 1.8 mg/dL (1.8-2.4) White Blood Count 9.6 x10^3/uL (4.0-11.0) Red Blood Count 3.80 x10^6/uL (4.30-5.70) Hemoglobin 13.0 g/dL (13.0-17.5) Hematocrit 38.8 % (39.0-53.0) Mean Corpuscular Volume 102 fL (79-100) Mean Corpuscular Hemoglobin 34 pg (25-35) Mean Corpuscular Hemoglobin Concent 34 g/dL (31-37) Red Cell Distribution Width 13.5 % (11.5-14.5) Platelet Count 212 x10^3/uL (140-400) Neutrophils (%) (Auto) 83 % (31-73) Lymphocytes (%) (Auto) 11 % (24-48) Monocytes (%) (Auto) 6 % (0-9) Eosinophils (%) (Auto) 0 % (0-3) Basophils (%) (Auto) 0 % (0-3) Neutrophils # (Auto) 8.0 x10^3/uL (1.8-7.7) Lymphocytes # (Auto) 1.1 x10^3/uL (1.0-4.8) Monocytes # (Auto) 0.6 x10^3/uL (0.0-1.1) Eosinophils # (Auto) 0.0 x10^3/uL (0.0-0.7) Basophils # (Auto) 0.0 x10^3/uL (0.0-0.2) Sodium Level 139 mmol/L (136-145) 142 mmol/L (136-145) Potassium Level 4.0 mmol/L (3.5-5.1) 3.5 mmol/L (3.5-5.1) Chloride Level 108 mmol/L (98-107) 109 mmol/L (98-107) Carbon Dioxide Level 23 mmol/L (21-32) 23 mmol/L (21-32) Anion Gap 8 (6-14) 10 (6-14) Blood Urea Nitrogen 12 mg/dL (8-26) 10 mg/dL (8-26) Creatinine 1.2 mg/dL (0.7-1.3) 1.1 mg/dL (0.7-1.3) Estimated GFR (Cockcroft-Gault) 61.6 68.1 BUN/Creatinine Ratio 10 (6-20) Glucose Level 150 mg/dL (70-99) 89 mg/dL (70-99) Calcium Level 8.1 mg/dL (8.5-10.1) 7.9 mg/dL (8.5-10.1) Total Bilirubin 0.5 mg/dL (0.2-1.0) Aspartate Amino Transf (AST/SGOT) 23 U/L (15-37) Alanine Aminotransferase (ALT/SGPT) 42 U/L (16-63) Alkaline Phosphatase 54 U/L (46-116) Total Protein 6.8 g/dL (6.4-8.2) Albumin 3.0 g/dL (3.4-5.0) Albumin/Globulin Ratio 0.8 (1.0-1.7) Laboratory Tests Test 09/01/19 16:20 09/02/19 04:05 White Blood Count 9.6 x10^3/uL (4.0-11.0) Red Blood Count 3.80 x10^6/uL (4.30-5.70) Hemoglobin 13.0 g/dL (13.0-17.5) Hematocrit 38.8 % (39.0-53.0) Mean Corpuscular Volume 102 fL (79-100) Mean Corpuscular Hemoglobin 34 pg (25-35) Mean Corpuscular Hemoglobin Concent 34 g/dL (31-37) Red Cell Distribution Width 13.5 % (11.5-14.5) Platelet Count 212 x10^3/uL (140-400) Neutrophils (%) (Auto) 83 % (31-73) Lymphocytes (%) (Auto) 11 % (24-48) Monocytes (%) (Auto) 6 % (0-9) Eosinophils (%) (Auto) 0 % (0-3) Basophils (%) (Auto) 0 % (0-3) Neutrophils # (Auto) 8.0 x10^3/uL (1.8-7.7) Lymphocytes # (Auto) 1.1 x10^3/uL (1.0-4.8) Monocytes # (Auto) 0.6 x10^3/uL (0.0-1.1) Eosinophils # (Auto) 0.0 x10^3/uL (0.0-0.7) Basophils # (Auto) 0.0 x10^3/uL (0.0-0.2) Sodium Level 139 mmol/L (136-145) 142 mmol/L (136-145) Potassium Level 4.0 mmol/L (3.5-5.1) 3.5 mmol/L (3.5-5.1) Chloride Level 108 mmol/L (98-107) 109 mmol/L (98-107) Carbon Dioxide Level 23 mmol/L (21-32) 23 mmol/L (21-32) Anion Gap 8 (6-14) 10 (6-14) Blood Urea Nitrogen 12 mg/dL (8-26) 10 mg/dL (8-26) Creatinine 1.2 mg/dL (0.7-1.3) 1.1 mg/dL (0.7-1.3) Estimated GFR (Cockcroft-Gault) 61.6 68.1 BUN/Creatinine Ratio 10 (6-20) Glucose Level 150 mg/dL (70-99) 89 mg/dL (70-99) Calcium Level 8.1 mg/dL (8.5-10.1) 7.9 mg/dL (8.5-10.1) Total Bilirubin 0.5 mg/dL (0.2-1.0) Aspartate Amino Transf (AST/SGOT) 23 U/L (15-37) Alanine Aminotransferase (ALT/SGPT) 42 U/L (16-63) Alkaline Phosphatase 54 U/L (46-116) Total Protein 6.8 g/dL (6.4-8.2) Albumin 3.0 g/dL (3.4-5.0) Albumin/Globulin Ratio 0.8 (1.0-1.7) Magnesium Level 1.8 mg/dL (1.8-2.4) Medications Active Scripts Medications Dose Route/Sig Max Daily Dose Days Date Category Propranolol Hcl 10 Mg Tablet 1 Tab PO TID 08/29/19 Reported Pantoprazole Sodium (Pantoprazole Sodium) 40 Mg Tablet.dr 40 Mg PO DAILYAC 08/29/19 Reported Amlodipine Besylate 5 Mg Tablet 5 Mg PO DAILY 08/29/19 Reported Lorazepam 2 Mg/1 Ml Oral.conc 0.5 Mg PO PRN PRN 08/29/19 Reported Venlafaxine Hcl 75 Mg Tablet 75 Mg PO DAILY 08/29/19 Reported Trazodone Hcl 100 Mg Tablet 1 Tab PO QHS 08/29/19 Reported Gabapentin 300 Mg Capsule 600 Mg PO QID 08/29/19 Reported No Known Medications Prior To Admisstion (Info) Each 1 Each 09/18/14 Reported Impression . IMPRESSION: 1. dyspnea secondary to chronic obstructive pulmonary disease along with recent fall resulting in rib fractures. 2. Chronic obstructive pulmonary disease. 3. Alcoholism. 4. Hepatitis C. 5. Polysubstance abuse. 6. Multiple rib Fx Plan . 1. Continue supportive care. 2. Treat acute nonspecific bronchitis. 3. Manage pain. 4. Alcohol withdrawal precaution. 5. stable pulmonary mango d/w DR Motta can go home pulmonary APOLONIA Membreno MD Sep 02, 2019 10:45
--- NOTE | 2019-09-02 11:05 | PDOC3 ---
Discharge Summary Date of Admission: Aug 29, 2019 Date of Discharge: Sep 02, 2019 Follow-Up: 3-5 days Admitting Diagnosis comment: DISCHARGE DX Assessment/Plan Impression: Suicidal ideation, resolved MAJOR DEPRESSION Alcohol abuse, SEVERE Chest pain DUE TO RIB FX Head contusion Rib fracture Minimally displaced right 4th rib fracture. Nondisplaced right 2nd, 3rd, 5th, 6th, and 7th rib fractures. No pneumothorax. No major traumatic intrathoracic injury. LABILE HTN hypomagnesemia ADMITTED TELE ALCOHOL WITHDRAWAL PRECAUTIONS pat team pulm consult PAIN CONTROL DVT PROPHYLAXIS neurology consult NORVASC 5 MG PO DAILY echo 09/01 2 gm mg iv x 1 09/01 09/01 chest wall pain persistent, slow to resolve, agitated at times 09/02 UP IN ROOM, WANTS TO GO HOME, AGREES TO NOT DRINK, ATTEND AA 33 MIN PT EXAM, CHART REVIEW D/C PLANNING , > 50% of time spent with exam, chart review, pt care coordination Vitals Vitals Vital Signs Date Time Temp Pulse Resp B/P (MAP) Pulse Ox O2 Delivery O2 Flow Rate FiO2 09/02/19 08:30 50 145/79 09/02/19 08:30 94 Room Air 09/02/19 07:50 98.0 18 98.0 Physical Exam General: Alert, Oriented X3, Cooperative, No acute distress Heart: Regular rate No pauses), Normal S1, Normal S2 Lungs: Clear Abdomen: Normal bowel sounds, Soft Extremities: No cyanosis, No edema, Normal pulses Skin: No significant lesion GAIT STEADY FINAL DIAGNOSIS Problems Medical Problems: (1) Alcohol abuse Status: Acute (2) Chest pain Status: Acute (3) Head contusion Status: Acute (4) Rib fracture Status: Acute (5) Suicidal ideation Status: Acute Brief Hospital Course Mr. Scott is a 59 old [sex] who presented with ALCOHOL ABUSE, FALL[ ] CONDITION AT DISCHARGE: Improved Discharge Medications Current Medications Lorazepam (Ativan Inj) 2 mg STK-MED ONCE .ROUTE ; Start 08/29/19 at 00:55; Stop 08/29/19 at 00:55; Status DC Multivitamins 10 ml/Thiamine HCl 100 mg/Folic Acid 1 mg/Sodium Chloride 1,011.2 ml @ 1,000.088 mls/hr 1X ONCE IV Last administered on 08/29/19at 01:56; Start 08/29/19 at 02:00; Stop 08/29/19 at 03:00; Status DC Lorazepam (Ativan Inj) 0.5 mg 1X ONCE IVP Last administered on 08/29/19at 01:45; Start 08/29/19 at 01:30; Stop 08/29/19 at 01:31; Status DC Lorazepam (Ativan Inj) 0.5 mg 1X ONCE IVP Last administered on 08/29/19at 02:57; Start 08/29/19 at 01:30; Stop 08/29/19 at 01:31; Status DC Magnesium Sulfate 50 ml @ 25 mls/hr 1X ONCE IV Last administered on 08/29/19at 03:00; Start 08/29/19 at 02:00; Stop 08/29/19 at 03:59; Status DC Diphtheria/ Tetanus/Acell Pertussis (Boostrix) 0.5 ml ONCE ONCE VAX IM Last administered on 08/29/19at 02:54; Start 08/29/19 at 02:30; Stop 08/29/19 at 02:31; Status DC Iohexol (Omnipaque 300 Mg/ml) 75 ml 1X ONCE IV ; Start 08/29/19 at 02:30; Stop 08/29/19 at 02:31; Status DC Info (CONTRAST GIVEN -- Rx MONITORING) 1 each PRN DAILY PRN MC SEE COMMENTS; Start 08/29/19 at 02:15; Stop 08/31/19 at 02:14; Status DC Ondansetron HCl (Zofran) 4 mg PRN Q8HRS PRN IV NAUSEA/VOMITING 1ST CHOICE; Start 08/29/19 at 02:15; Stop 08/30/19 at 02:14; Status DC Lorazepam (Ativan Inj) 1 mg PRN Q1HR PRN IV For CIWA 8-14 Last administered on 08/29/19at 12:10; Start 08/29/19 at 02:15; Stop 08/30/19 at 15:36; Status DC Lorazepam (Ativan Inj) 2 mg PRN Q1HR PRN IV For CIWA 15 or greater Last administered on 08/29/19at 06:42; Start 08/29/19 at 02:15; Stop 08/30/19 at 15:36; Status DC Oxycodone/ Acetaminophen (Percocet 5/325) 1 tab PRN Q4HRS PRN PO PAIN; Start 08/29/19 at 05:30; Status Cancel Oxycodone HCl (Roxicodone) 5 mg PRN Q6HRS PRN PO PAIN Last administered on 09/02/19at 08:30; Start 08/29/19 at 08:30 Multivitamins 10 ml/Thiamine HCl 100 mg/Folic Acid 1 mg/Sodium Chloride 1,011.2 ml @ 100 mls/ hr DAILY IV Last administered on 09/01/19at 08:31; Start 08/30/19 at 09:00; Stop 09/01/19 at 23:00; Status DC Multivitamins (Thera M Plus) 1 tab DAILY PO Last administered on 09/02/19 08:29; Start 09/02/19 at 09:00 Folic Acid (Folic Acid) 1 mg DAILY PO Last administered on 09/02/19 08:29; Start 09/02/19 at 09:00 Thiamine Mononitrate (Vitamin B-1) 100 mg DAILY PO Last administered on 09/02/19 08:29; Start 09/02/19 at 09:00 Lorazepam (Ativan) 4 mg PRN Q1HR PRN PO For CIWA 8-14; Start 08/29/19 at 11:15 Lorazepam (Ativan) 8 mg PRN Q1HR PRN PO For CIWA 15 or greater; Start 08/29/19 at 11:15 Lorazepam (Ativan Inj) 2 mg PRN Q1HR PRN IV For CIWA 8-14 Last administered on 08/31/19at 18:30; Start 08/29/19 at 11:15 Lorazepam (Ativan Inj) 4 mg PRN Q1HR PRN IV For CIWA 15 or greater Last administered on 08/30/19at 03:43; Start 08/29/19 at 11:15 Clonidine HCl (Catapres) 0.1 mg PRN Q1HR PRN PO SBP > 180 or DBP > 100, MRX3; Start 08/29/19 at 11:15; Stop 09/02/19 at 08:12; Status DC Lorazepam (Ativan Inj) 2 mg PRN Q15MIN PRN IV SEE COMMENTS; Start 08/29/19 at 11:15; Status UNV Lorazepam (Ativan Inj) 4 mg PRN Q15MIN PRN IV SEE COMMENTS; Start 08/29/19 at 11:15; Status UNV Neomycin/ Polymyxin/ Bacitracin (Triple Antibiotic Ointment) 1 pkt BID TP Last administered on 09/02/19 08:30; Start 08/29/19 at 14:00 Amlodipine Besylate (Norvasc) 5 mg DAILY PO Last administered on 09/02/19 08:30; Start 08/30/19 at 09:00 Gabapentin (Neurontin) 600 mg QID PO Last administered on 09/02/19 08:29; Start 08/29/19 at 17:00 Lorazepam (Ativan Intensol) 0.5 mg PRN BID PRN PO AGITATION; Start 08/29/19 at 16:45 Pantoprazole Sodium (Protonix) 40 mg DAILYAC PO Last administered on 09/02/19 08:30; Start 08/29/19 at 17:00 Propranolol HCl (Inderal) 10 mg TID PO Last administered on 08/31/19 21:30; Start 08/29/19 at 21:00 Trazodone HCl (Desyrel) 100 mg QHS PO Last administered on 09/01/19 21:08; Start 08/29/19 at 21:00 Venlafaxine HCl (Effexor) 75 mg DAILY PO Last administered on 09/02/19 08:29; Start 08/30/19 at 09:00 Ibuprofen (Motrin) 400 mg PRN Q6HRS PRN PO INFLAMMATION Last administered on 09/02/19 09:58; Start 08/30/19 at 03:45 Ibuprofen (Motrin) 400 mg STK-MED ONCE PO ; Start 08/30/19 at 03:38; Stop 08/30/19 at 03:38; Status DC Haloperidol (Haldol) 10 mg 1X ONCE PO Last administered on 08/30/19 04:42; Start 08/30/19 at 05:00; Stop 08/30/19 at 05:01; Status DC Haloperidol (Haldol) 5 mg PRN Q6HRS PRN PO AGITATION; Start 08/30/19 at 04:45 Doxycycline Hyclate (Vibra-Tab) 100 mg BID PO Last administered on 09/02/19 08:30; Start 08/30/19 at 16:00 Prednisone (Prednisone) 20 mg 1X ONCE PO Last administered on 08/30/19 16:58; Start 08/30/19 at 15:45; Stop 08/30/19 at 15:47; Status DC Prednisone (Prednisone) 20 mg DAILY PO Last administered on 09/02/19 08:29; Start 08/31/19 at 09:00 Sodium Chloride 1,000 ml @ 1,000 mls/hr 1X ONCE IV Last administered on 08/30/19 16:49; Start 08/30/19 at 16:30; Stop 08/30/19 at 17:29; Status DC Lactobacillus Rhamnosus (Culturelle) 1 cap BID PO Last administered on 09/02/19 08:29; Start 08/31/19 at 21:00 Magnesium Sulfate 50 ml @ 25 mls/hr 1X ONCE IV Last administered on 09/01/19 11:56; Start 09/01/19 at 11:30; Stop 09/01/19 at 13:29; Status DC Lidocaine (Lidoderm) 1 patch DAILY TD Last administered on 09/02/19 08:31; Start 09/01/19 at 13:00 Miscellaneous (Lidoderm Patch Removal) 1 ea QHS MC Last administered on 09/01/19 21:00; Start 09/01/19 at 21:00 Nicotine (Nicoderm Cq 14mg) 1 patch PRN DAILY PRN TD SMOKING CESSATION Last administered on 09/02/19 09:58; Start 09/01/19 at 12:30 Lorazepam (Ativan) 2 mg PRN Q6HRS PRN PO ANXIETY / AGITATION Last administered on 09/01/19 14:57; Start 09/01/19 at 14:45 Lisinopril (Prinivil) 5 mg DAILY PO Last administered on 09/02/19 10:01; Start 09/01/19 at 16:30 Active Scripts Active Reported Propranolol Hcl 10 Mg Tablet 1 Tab PO TID Pantoprazole Sodium (Pantoprazole Sodium) 40 Mg Tablet.dr 40 Mg PO DAILYAC Amlodipine Besylate 5 Mg Tablet 5 Mg PO DAILY Lorazepam 2 Mg/1 Ml Oral.conc 0.5 Mg PO PRN PRN Venlafaxine Hcl 75 Mg Tablet 75 Mg PO DAILY Trazodone Hcl 100 Mg Tablet 1 Tab PO QHS Gabapentin 300 Mg Capsule 600 Mg PO QID No Known Medications Prior To Admisstion (Info) Each 1 Each Vital Signs Vital Signs Date Time Temp Pulse Resp B/P (MAP) Pulse Ox O2 Delivery O2 Flow Rate FiO2 09/02/19 10:01 50 145/79 09/02/19 08:30 94 Room Air 09/02/19 07:50 98.0 18 98.0 Labs Laboratory Tests Test 09/01/19 01:17 09/01/19 16:20 09/02/19 04:05 Magnesium Level 1.5 mg/dL (1.8-2.4) 1.8 mg/dL (1.8-2.4) White Blood Count 9.6 x10^3/uL (4.0-11.0) Red Blood Count 3.80 x10^6/uL (4.30-5.70) Hemoglobin 13.0 g/dL (13.0-17.5) Hematocrit 38.8 % (39.0-53.0) Mean Corpuscular Volume 102 fL (79-100) Mean Corpuscular Hemoglobin 34 pg (25-35) Mean Corpuscular Hemoglobin Concent 34 g/dL (31-37) Red Cell Distribution Width 13.5 % (11.5-14.5) Platelet Count 212 x10^3/uL (140-400) Neutrophils (%) (Auto) 83 % (31-73) Lymphocytes (%) (Auto) 11 % (24-48) Monocytes (%) (Auto) 6 % (0-9) Eosinophils (%) (Auto) 0 % (0-3) Basophils (%) (Auto) 0 % (0-3) Neutrophils # (Auto) 8.0 x10^3/uL (1.8-7.7) Lymphocytes # (Auto) 1.1 x10^3/uL (1.0-4.8) Monocytes # (Auto) 0.6 x10^3/uL (0.0-1.1) Eosinophils # (Auto) 0.0 x10^3/uL (0.0-0.7) Basophils # (Auto) 0.0 x10^3/uL (0.0-0.2) Sodium Level 139 mmol/L (136-145) 142 mmol/L (136-145) Potassium Level 4.0 mmol/L (3.5-5.1) 3.5 mmol/L (3.5-5.1) Chloride Level 108 mmol/L (98-107) 109 mmol/L (98-107) Carbon Dioxide Level 23 mmol/L (21-32) 23 mmol/L (21-32) Anion Gap 8 (6-14) 10 (6-14) Blood Urea Nitrogen 12 mg/dL (8-26) 10 mg/dL (8-26) Creatinine 1.2 mg/dL (0.7-1.3) 1.1 mg/dL (0.7-1.3) Estimated GFR (Cockcroft-Gault) 61.6 68.1 BUN/Creatinine Ratio 10 (6-20) Glucose Level 150 mg/dL (70-99) 89 mg/dL (70-99) Calcium Level 8.1 mg/dL (8.5-10.1) 7.9 mg/dL (8.5-10.1) Total Bilirubin 0.5 mg/dL (0.2-1.0) Aspartate Amino Transf (AST/SGOT) 23 U/L (15-37) Alanine Aminotransferase (ALT/SGPT) 42 U/L (16-63) Alkaline Phosphatase 54 U/L (46-116) Total Protein 6.8 g/dL (6.4-8.2) Albumin 3.0 g/dL (3.4-5.0) Albumin/Globulin Ratio 0.8 (1.0-1.7) Laboratory Tests Test 09/01/19 16:20 09/02/19 04:05 White Blood Count 9.6 x10^3/uL (4.0-11.0) Red Blood Count 3.80 x10^6/uL (4.30-5.70) Hemoglobin 13.0 g/dL (13.0-17.5) Hematocrit 38.8 % (39.0-53.0) Mean Corpuscular Volume 102 fL (79-100) Mean Corpuscular Hemoglobin 34 pg (25-35) Mean Corpuscular Hemoglobin Concent 34 g/dL (31-37) Red Cell Distribution Width 13.5 % (11.5-14.5) Platelet Count 212 x10^3/uL (140-400) Neutrophils (%) (Auto) 83 % (31-73) Lymphocytes (%) (Auto) 11 % (24-48) Monocytes (%) (Auto) 6 % (0-9) Eosinophils (%) (Auto) 0 % (0-3) Basophils (%) (Auto) 0 % (0-3) Neutrophils # (Auto) 8.0 x10^3/uL (1.8-7.7) Lymphocytes # (Auto) 1.1 x10^3/uL (1.0-4.8) Monocytes # (Auto) 0.6 x10^3/uL (0.0-1.1) Eosinophils # (Auto) 0.0 x10^3/uL (0.0-0.7) Basophils # (Auto) 0.0 x10^3/uL (0.0-0.2) Sodium Level 139 mmol/L (136-145) 142 mmol/L (136-145) Potassium Level 4.0 mmol/L (3.5-5.1) 3.5 mmol/L (3.5-5.1) Chloride Level 108 mmol/L (98-107) 109 mmol/L (98-107) Carbon Dioxide Level 23 mmol/L (21-32) 23 mmol/L (21-32) Anion Gap 8 (6-14) 10 (6-14) Blood Urea Nitrogen 12 mg/dL (8-26) 10 mg/dL (8-26) Creatinine 1.2 mg/dL (0.7-1.3) 1.1 mg/dL (0.7-1.3) Estimated GFR (Cockcroft-Gault) 61.6 68.1 BUN/Creatinine Ratio 10 (6-20) Glucose Level 150 mg/dL (70-99) 89 mg/dL (70-99) Calcium Level 8.1 mg/dL (8.5-10.1) 7.9 mg/dL (8.5-10.1) Total Bilirubin 0.5 mg/dL (0.2-1.0) Aspartate Amino Transf (AST/SGOT) 23 U/L (15-37) Alanine Aminotransferase (ALT/SGPT) 42 U/L (16-63) Alkaline Phosphatase 54 U/L (46-116) Total Protein 6.8 g/dL (6.4-8.2) Albumin 3.0 g/dL (3.4-5.0) Albumin/Globulin Ratio 0.8 (1.0-1.7) Magnesium Level 1.8 mg/dL (1.8-2.4) Allergies Allergies Coded Allergies Type Severity Reaction Last Updated Verified No Known Medication Allergies Allergy Unknown 08/30/19 Yes acetaminophen Adverse Reaction Intermediate has hepatitis C 09/18/14 Yes Disposition/Orders: D/C to Home TOMASA GARNER MD Sep 02, 2019 11:05
[2019-09-02] MEDS ORDERED: THIA100T22 PO (11:10)
[2019-09-02] MEDS ORDERED: Folic Acid PO (11:10)
[2019-09-02] MEDS ORDERED: IBUP-1027 PO (11:10)
[2019-09-02] MEDS ORDERED: DOXY100T PO (11:10)
[2019-09-02] MEDS ORDERED: NEOM1OIN6 TP (11:10)
[2019-09-02] MEDS ORDERED: MULT1TAB90 PO (11:10)
[2019-09-02] MEDS ORDERED: LISI-338 PO (11:10)
[2019-09-02] MEDS ORDERED: LACT1CAP19 PO (11:10)
[2019-09-02] MEDS ORDERED: LIDO700A21 TD (11:10)
[2019-09-02] MEDS ORDERED: PRED20TA PO (11:10)
--- NOTE | 2019-09-02 11:15 | DISCH ---
DISCHARGE INSTRUCTIONS Condition on Discharge Condition on Discharge: Stable Activity After Discharge Activity Instructions for Disc: Activity as tolerated Lifting Instructions after Dis: No heavy lifting, No pulling or pushing Exercise Instruction after Dis: Walk 10 min, 3 x per day Driving Instructions after Dis: Do not drive Diet after Discharge Diet after Discharge: Cardiac, Regular Checks after Discharge Checks after discharge: Check blood press - daily Contacting the DR. after DC Call your doctor for: If your condition worsens TOMASA GARNER MD Sep 02, 2019 11:15
[2019-09-02 11:28] VITALS: BP 157/67
--- NOTE | 2019-09-02 11:57 | PDOC ---
PROGRESS NOTES Assessment Problems Medical Problems: (1) Alcohol abuse Status: Acute (2) Chest pain Status: Acute (3) Head contusion Status: Acute (4) Rib fracture Status: Acute (5) Suicidal ideation Status: Acute Head injury, concussion, slip on ice Alcohol intoxication, level 281 at admission Alcoholism Suicidal ideation, depression Rib fractures Labile hypertension Plan Continue alcohol withdrawal protocol Psychiatric assessment team Okay for discharge No need for additional neurological studies Follow-up with neurology as needed. Subjective Still has written pain, understands this will last up to several weeks. No headache. Wants to go home Objective Vital Signs Date Time Temp Pulse Resp B/P (MAP) Pulse Ox O2 Delivery O2 Flow Rate FiO2 09/02/19 11:28 98.4 60 18 157/67 (97) 94 Room Air 98.4 Intake and Output 09/02/19 07:00 Intake Total 1160 ml Output Total 250 ml Balance 910 ml Intake Oral 1160 ml Output Urine Total 250 ml # Voids 2 PHYSICAL EXAM Alert. Oriented to time, place and person. PERRL. EOMI. CN: no focal findings. Muscle tone: normal. Muscle strength: 5/5 DTR: 2+ Plantar reflex: flexor Gait: antalgic. Sensory exam: no abnormal findings. No cerebellar signs elicited. Review of Relevant I have reviewed the following items kyler (where applicable) has been applied. Labs Laboratory Tests Test 09/01/19 01:17 09/01/19 16:20 09/02/19 04:05 Magnesium Level 1.5 mg/dL (1.8-2.4) 1.8 mg/dL (1.8-2.4) White Blood Count 9.6 x10^3/uL (4.0-11.0) Red Blood Count 3.80 x10^6/uL (4.30-5.70) Hemoglobin 13.0 g/dL (13.0-17.5) Hematocrit 38.8 % (39.0-53.0) Mean Corpuscular Volume 102 fL (79-100) Mean Corpuscular Hemoglobin 34 pg (25-35) Mean Corpuscular Hemoglobin Concent 34 g/dL (31-37) Red Cell Distribution Width 13.5 % (11.5-14.5) Platelet Count 212 x10^3/uL (140-400) Neutrophils (%) (Auto) 83 % (31-73) Lymphocytes (%) (Auto) 11 % (24-48) Monocytes (%) (Auto) 6 % (0-9) Eosinophils (%) (Auto) 0 % (0-3) Basophils (%) (Auto) 0 % (0-3) Neutrophils # (Auto) 8.0 x10^3/uL (1.8-7.7) Lymphocytes # (Auto) 1.1 x10^3/uL (1.0-4.8) Monocytes # (Auto) 0.6 x10^3/uL (0.0-1.1) Eosinophils # (Auto) 0.0 x10^3/uL (0.0-0.7) Basophils # (Auto) 0.0 x10^3/uL (0.0-0.2) Sodium Level 139 mmol/L (136-145) 142 mmol/L (136-145) Potassium Level 4.0 mmol/L (3.5-5.1) 3.5 mmol/L (3.5-5.1) Chloride Level 108 mmol/L (98-107) 109 mmol/L (98-107) Carbon Dioxide Level 23 mmol/L (21-32) 23 mmol/L (21-32) Anion Gap 8 (6-14) 10 (6-14) Blood Urea Nitrogen 12 mg/dL (8-26) 10 mg/dL (8-26) Creatinine 1.2 mg/dL (0.7-1.3) 1.1 mg/dL (0.7-1.3) Estimated GFR (Cockcroft-Gault) 61.6 68.1 BUN/Creatinine Ratio 10 (6-20) Glucose Level 150 mg/dL (70-99) 89 mg/dL (70-99) Calcium Level 8.1 mg/dL (8.5-10.1) 7.9 mg/dL (8.5-10.1) Total Bilirubin 0.5 mg/dL (0.2-1.0) Aspartate Amino Transf (AST/SGOT) 23 U/L (15-37) Alanine Aminotransferase (ALT/SGPT) 42 U/L (16-63) Alkaline Phosphatase 54 U/L (46-116) Total Protein 6.8 g/dL (6.4-8.2) Albumin 3.0 g/dL (3.4-5.0) Albumin/Globulin Ratio 0.8 (1.0-1.7) Laboratory Tests Test 09/01/19 16:20 09/02/19 04:05 White Blood Count 9.6 x10^3/uL (4.0-11.0) Red Blood Count 3.80 x10^6/uL (4.30-5.70) Hemoglobin 13.0 g/dL (13.0-17.5) Hematocrit 38.8 % (39.0-53.0) Mean Corpuscular Volume 102 fL (79-100) Mean Corpuscular Hemoglobin 34 pg (25-35) Mean Corpuscular Hemoglobin Concent 34 g/dL (31-37) Red Cell Distribution Width 13.5 % (11.5-14.5) Platelet Count 212 x10^3/uL (140-400) Neutrophils (%) (Auto) 83 % (31-73) Lymphocytes (%) (Auto) 11 % (24-48) Monocytes (%) (Auto) 6 % (0-9) Eosinophils (%) (Auto) 0 % (0-3) Basophils (%) (Auto) 0 % (0-3) Neutrophils # (Auto) 8.0 x10^3/uL (1.8-7.7) Lymphocytes # (Auto) 1.1 x10^3/uL (1.0-4.8) Monocytes # (Auto) 0.6 x10^3/uL (0.0-1.1) Eosinophils # (Auto) 0.0 x10^3/uL (0.0-0.7) Basophils # (Auto) 0.0 x10^3/uL (0.0-0.2) Sodium Level 139 mmol/L (136-145) 142 mmol/L (136-145) Potassium Level 4.0 mmol/L (3.5-5.1) 3.5 mmol/L (3.5-5.1) Chloride Level 108 mmol/L (98-107) 109 mmol/L (98-107) Carbon Dioxide Level 23 mmol/L (21-32) 23 mmol/L (21-32) Anion Gap 8 (6-14) 10 (6-14) Blood Urea Nitrogen 12 mg/dL (8-26) 10 mg/dL (8-26) Creatinine 1.2 mg/dL (0.7-1.3) 1.1 mg/dL (0.7-1.3) Estimated GFR (Cockcroft-Gault) 61.6 68.1 BUN/Creatinine Ratio 10 (6-20) Glucose Level 150 mg/dL (70-99) 89 mg/dL (70-99) Calcium Level 8.1 mg/dL (8.5-10.1) 7.9 mg/dL (8.5-10.1) Total Bilirubin 0.5 mg/dL (0.2-1.0) Aspartate Amino Transf (AST/SGOT) 23 U/L (15-37) Alanine Aminotransferase (ALT/SGPT) 42 U/L (16-63) Alkaline Phosphatase 54 U/L (46-116) Total Protein 6.8 g/dL (6.4-8.2) Albumin 3.0 g/dL (3.4-5.0) Albumin/Globulin Ratio 0.8 (1.0-1.7) Magnesium Level 1.8 mg/dL (1.8-2.4) Microbiology 08/29/19 Urine Culture - Final, Complete 08/29/19 Urine Culture Result 1 (MARIAH) - Final, Complete Medications Current Medications Lorazepam (Ativan Inj) 2 mg STK-MED ONCE .ROUTE ; Start 08/29/19 at 00:55; Stop 08/29/19 at 00:55; Status DC Multivitamins 10 ml/Thiamine HCl 100 mg/Folic Acid 1 mg/Sodium Chloride 1,011.2 ml @ 1,000.088 mls/hr 1X ONCE IV Last administered on 08/29/19at 01:56; Start 08/29/19 at 02:00; Stop 08/29/19 at 03:00; Status DC Lorazepam (Ativan Inj) 0.5 mg 1X ONCE IVP Last administered on 08/29/19at 01:45; Start 08/29/19 at 01:30; Stop 08/29/19 at 01:31; Status DC Lorazepam (Ativan Inj) 0.5 mg 1X ONCE IVP Last administered on 08/29/19at 02:57; Start 08/29/19 at 01:30; Stop 08/29/19 at 01:31; Status DC Magnesium Sulfate 50 ml @ 25 mls/hr 1X ONCE IV Last administered on 08/29/19at 03:00; Start 08/29/19 at 02:00; Stop 08/29/19 at 03:59; Status DC Diphtheria/ Tetanus/Acell Pertussis (Boostrix) 0.5 ml ONCE ONCE VAX IM Last administered on 08/29/19at 02:54; Start 08/29/19 at 02:30; Stop 08/29/19 at 02:31; Status DC Iohexol (Omnipaque 300 Mg/ml) 75 ml 1X ONCE IV ; Start 08/29/19 at 02:30; Stop 08/29/19 at 02:31; Status DC Info (CONTRAST GIVEN -- Rx MONITORING) 1 each PRN DAILY PRN MC SEE COMMENTS; Start 08/29/19 at 02:15; Stop 08/31/19 at 02:14; Status DC Ondansetron HCl (Zofran) 4 mg PRN Q8HRS PRN IV NAUSEA/VOMITING 1ST CHOICE; Start 08/29/19 at 02:15; Stop 08/30/19 at 02:14; Status DC Lorazepam (Ativan Inj) 1 mg PRN Q1HR PRN IV For CIWA 8-14 Last administered on 08/29/19at 12:10; Start 08/29/19 at 02:15; Stop 08/30/19 at 15:36; Status DC Lorazepam (Ativan Inj) 2 mg PRN Q1HR PRN IV For CIWA 15 or greater Last administered on 08/29/19at 06:42; Start 08/29/19 at 02:15; Stop 08/30/19 at 15:36; Status DC Oxycodone/ Acetaminophen (Percocet 5/325) 1 tab PRN Q4HRS PRN PO PAIN; Start 08/29/19 at 05:30; Status Cancel Oxycodone HCl (Roxicodone) 5 mg PRN Q6HRS PRN PO PAIN Last administered on 09/02/19at 08:30; Start 08/29/19 at 08:30 Multivitamins 10 ml/Thiamine HCl 100 mg/Folic Acid 1 mg/Sodium Chloride 1,011.2 ml @ 100 mls/ hr DAILY IV Last administered on 09/01/19at 08:31; Start 08/30/19 at 09:00; Stop 09/01/19 at 23:00; Status DC Multivitamins (Thera M Plus) 1 tab DAILY PO Last administered on 09/02/19 08:29; Start 09/02/19 at 09:00 Folic Acid (Folic Acid) 1 mg DAILY PO Last administered on 09/02/19 08:29; Start 09/02/19 at 09:00 Thiamine Mononitrate (Vitamin B-1) 100 mg DAILY PO Last administered on 09/02/19 08:29; Start 09/02/19 at 09:00 Lorazepam (Ativan) 4 mg PRN Q1HR PRN PO For CIWA 8-14; Start 08/29/19 at 11:15 Lorazepam (Ativan) 8 mg PRN Q1HR PRN PO For CIWA 15 or greater; Start 08/29/19 at 11:15 Lorazepam (Ativan Inj) 2 mg PRN Q1HR PRN IV For CIWA 8-14 Last administered on 08/31/19at 18:30; Start 08/29/19 at 11:15 Lorazepam (Ativan Inj) 4 mg PRN Q1HR PRN IV For CIWA 15 or greater Last administered on 08/30/19at 03:43; Start 08/29/19 at 11:15 Clonidine HCl (Catapres) 0.1 mg PRN Q1HR PRN PO SBP > 180 or DBP > 100, MRX3; Start 08/29/19 at 11:15; Stop 09/02/19 at 08:12; Status DC Lorazepam (Ativan Inj) 2 mg PRN Q15MIN PRN IV SEE COMMENTS; Start 08/29/19 at 11:15; Status UNV Lorazepam (Ativan Inj) 4 mg PRN Q15MIN PRN IV SEE COMMENTS; Start 08/29/19 at 11:15; Status UNV Neomycin/ Polymyxin/ Bacitracin (Triple Antibiotic Ointment) 1 pkt BID TP Last administered on 09/02/19 08:30; Start 08/29/19 at 14:00 Amlodipine Besylate (Norvasc) 5 mg DAILY PO Last administered on 09/02/19 08:30; Start 08/30/19 at 09:00 Gabapentin (Neurontin) 600 mg QID PO Last administered on 09/02/19 08:29; Start 08/29/19 at 17:00 Lorazepam (Ativan Intensol) 0.5 mg PRN BID PRN PO AGITATION; Start 08/29/19 at 16:45 Pantoprazole Sodium (Protonix) 40 mg DAILYAC PO Last administered on 09/02/19 08:30; Start 08/29/19 at 17:00 Propranolol HCl (Inderal) 10 mg TID PO Last administered on 08/31/19 21:30; Start 08/29/19 at 21:00 Trazodone HCl (Desyrel) 100 mg QHS PO Last administered on 09/01/19 21:08; Start 08/29/19 at 21:00 Venlafaxine HCl (Effexor) 75 mg DAILY PO Last administered on 09/02/19 08:29; Start 08/30/19 at 09:00 Ibuprofen (Motrin) 400 mg PRN Q6HRS PRN PO INFLAMMATION Last administered on 09/02/19 09:58; Start 08/30/19 at 03:45 Ibuprofen (Motrin) 400 mg STK-MED ONCE PO ; Start 08/30/19 at 03:38; Stop 08/30/19 at 03:38; Status DC Haloperidol (Haldol) 10 mg 1X ONCE PO Last administered on 08/30/19at 04:42; Start 08/30/19 at 05:00; Stop 08/30/19 at 05:01; Status DC Haloperidol (Haldol) 5 mg PRN Q6HRS PRN PO AGITATION; Start 08/30/19 at 04:45 Doxycycline Hyclate (Vibra-Tab) 100 mg BID PO Last administered on 09/02/19 08:30; Start 08/30/19 at 16:00 Prednisone (Prednisone) 20 mg 1X ONCE PO Last administered on 08/30/19 16:58; Start 08/30/19 at 15:45; Stop 08/30/19 at 15:47; Status DC Prednisone (Prednisone) 20 mg DAILY PO Last administered on 09/02/19 08:29; Start 08/31/19 at 09:00 Sodium Chloride 1,000 ml @ 1,000 mls/hr 1X ONCE IV Last administered on 08/30/19 16:49; Start 08/30/19 at 16:30; Stop 08/30/19 at 17:29; Status DC Lactobacillus Rhamnosus (Culturelle) 1 cap BID PO Last administered on 09/02/19 08:29; Start 08/31/19 at 21:00 Magnesium Sulfate 50 ml @ 25 mls/hr 1X ONCE IV Last administered on 09/01/19 11:56; Start 09/01/19 at 11:30; Stop 09/01/19 at 13:29; Status DC Lidocaine (Lidoderm) 1 patch DAILY TD Last administered on 09/02/19 08:31; Start 09/01/19 at 13:00 Miscellaneous (Lidoderm Patch Removal) 1 ea QHS MC Last administered on 09/01/19 21:00; Start 09/01/19 at 21:00 Nicotine (Nicoderm Cq 14mg) 1 patch PRN DAILY PRN TD SMOKING CESSATION Last administered on 09/02/19 09:58; Start 09/01/19 at 12:30 Lorazepam (Ativan) 2 mg PRN Q6HRS PRN PO ANXIETY / AGITATION Last administered on 09/01/19 14:57; Start 09/01/19 at 14:45 Lisinopril (Prinivil) 5 mg DAILY PO Last administered on 09/02/19 10:01; Start 09/01/19 at 16:30 Active Scripts Active Thera-M Tablet (Multivits,Ca,Minerals/Iron/Fa) 1 Each Tablet 1 Tab PO DAILY 30 Days Vitamin B-1 (Thiamine Mononitrate) 100 Mg Tablet 100 Mg PO DAILY 30 Days [Folic Acid] 1 MG Tablet 1 Mg PO DAILY 30 Days Lidocaine PATCH (Lidocaine) 1 Each Adh..patch 1 Patch TD DAILY 14 Days Triple Antibiotic Ointment (Neomy Sulf/Bacitrac Zn/Poly) 1 Each Oint.pack 1 Pkt TP BID 10 Days Prednisone 20 Mg Tablet 20 Mg PO DAILY 7 Days Culturelle (Lactobacillus Rhamnosus Gg) 1 Each Cap.sprink 1 Cap PO BID 30 Days Ibuprofen 400 Mg Tablet 400 Mg PO PRN Q6HRS PRN 10 Days Lisinopril 5 Mg Tablet 5 Mg PO DAILY 30 Days Doxycycline Hyclate 100 Mg Tablet 100 Mg PO BID 7 Days Reported Propranolol Hcl 10 Mg Tablet 1 Tab PO TID Pantoprazole Sodium (Pantoprazole Sodium) 40 Mg Tablet.dr 40 Mg PO DAILYAC Amlodipine Besylate 5 Mg Tablet 5 Mg PO DAILY Venlafaxine Hcl 75 Mg Tablet 75 Mg PO DAILY Trazodone Hcl 100 Mg Tablet 1 Tab PO QHS Gabapentin 300 Mg Capsule 600 Mg PO QID Vitals/I & O Vital Sign - Last 24 Hours 09/01/19 09/01/19 09/01/19 09/01/19 14:00 15:00 17:23 17:24 Temp 98.3 98.3 Pulse 52 67 67 Resp 19 B/P (MAP) 146/82 144/84 (104) 144/84 Pulse Ox 93 O2 Delivery Room Air Room Air 09/01/19 09/01/19 09/01/19 09/01/19 18:25 19:52 21:00 23:38 Temp 98.1 98.1 Pulse 47 47 61 Resp 19 16 18 B/P (MAP) 157/74 (101) 157/74 146/65 (92) Pulse Ox 93 93 94 O2 Delivery Room Air Room Air Room Air 09/02/19 09/02/19 09/02/19 09/02/19 03:28 07:50 08:00 08:30 Temp 98.2 98.0 98.2 98.0 Pulse 48 50 Resp 16 18 B/P (MAP) 130/61 (84) 145/79 (101) Pulse Ox 93 94 94 O2 Delivery Room Air Room Air Room Air Room Air 09/02/19 09/02/19 09/02/19 09/02/19 08:30 09:00 09:30 10:01 Pulse 50 50 50 Resp 19 B/P (MAP) 145/79 145/79 145/79 Pulse Ox 94 O2 Delivery Room Air 09/02/19 11:28 Temp 98.4 98.4 Pulse 60 Resp 18 B/P (MAP) 157/67 (97) Pulse Ox 94 O2 Delivery Room Air Intake and Output 09/01/19 09/01/19 09/02/19 15:00 23:00 07:00 Intake Total 400 ml 550 ml 210 ml Output Total 250 ml Balance 400 ml 300 ml 210 ml MAIKOL HURTADO MD Sep 02, 2019 11:57
--- NOTE | 2019-09-02 12:14 | PDOC ---
CARDIO Progress Notes Date and Time Date of Service 09/02/2019 Time of Evaluation 1030 Subjective Subjective: No Chest Pain, No shortness of breath, No Palpitations Vitals Vitals Vital Signs Date Time Temp Pulse Resp B/P (MAP) Pulse Ox O2 Delivery O2 Flow Rate FiO2 09/02/19 11:28 98.4 60 18 157/67 (97) 94 Room Air 98.4 Weight Weight [ ] Input and Output Intake and Output Intake and Output 09/02/19 07:00 Intake Total 1160 ml Output Total 250 ml Balance 910 ml Intake Oral 1160 ml Output Urine Total 250 ml # Voids 2 Laboratory Labs Laboratory Tests Test 09/01/19 16:20 09/02/19 04:05 White Blood Count 9.6 x10^3/uL (4.0-11.0) Red Blood Count 3.80 x10^6/uL (4.30-5.70) Hemoglobin 13.0 g/dL (13.0-17.5) Hematocrit 38.8 % (39.0-53.0) Mean Corpuscular Volume 102 fL (79-100) Mean Corpuscular Hemoglobin 34 pg (25-35) Mean Corpuscular Hemoglobin Concent 34 g/dL (31-37) Red Cell Distribution Width 13.5 % (11.5-14.5) Platelet Count 212 x10^3/uL (140-400) Neutrophils (%) (Auto) 83 % (31-73) Lymphocytes (%) (Auto) 11 % (24-48) Monocytes (%) (Auto) 6 % (0-9) Eosinophils (%) (Auto) 0 % (0-3) Basophils (%) (Auto) 0 % (0-3) Neutrophils # (Auto) 8.0 x10^3/uL (1.8-7.7) Lymphocytes # (Auto) 1.1 x10^3/uL (1.0-4.8) Monocytes # (Auto) 0.6 x10^3/uL (0.0-1.1) Eosinophils # (Auto) 0.0 x10^3/uL (0.0-0.7) Basophils # (Auto) 0.0 x10^3/uL (0.0-0.2) Sodium Level 139 mmol/L (136-145) 142 mmol/L (136-145) Potassium Level 4.0 mmol/L (3.5-5.1) 3.5 mmol/L (3.5-5.1) Chloride Level 108 mmol/L (98-107) 109 mmol/L (98-107) Carbon Dioxide Level 23 mmol/L (21-32) 23 mmol/L (21-32) Anion Gap 8 (6-14) 10 (6-14) Blood Urea Nitrogen 12 mg/dL (8-26) 10 mg/dL (8-26) Creatinine 1.2 mg/dL (0.7-1.3) 1.1 mg/dL (0.7-1.3) Estimated GFR (Cockcroft-Gault) 61.6 68.1 BUN/Creatinine Ratio 10 (6-20) Glucose Level 150 mg/dL (70-99) 89 mg/dL (70-99) Calcium Level 8.1 mg/dL (8.5-10.1) 7.9 mg/dL (8.5-10.1) Total Bilirubin 0.5 mg/dL (0.2-1.0) Aspartate Amino Transf (AST/SGOT) 23 U/L (15-37) Alanine Aminotransferase (ALT/SGPT) 42 U/L (16-63) Alkaline Phosphatase 54 U/L (46-116) Total Protein 6.8 g/dL (6.4-8.2) Albumin 3.0 g/dL (3.4-5.0) Albumin/Globulin Ratio 0.8 (1.0-1.7) Magnesium Level 1.8 mg/dL (1.8-2.4) Microbiology Micro Microbiology 08/29/19 Urine Culture - Final, Complete 08/29/19 Urine Culture Result 1 (MARIAH) - Final, Complete Physical Exam HEENT: Neck Supple W Full Motion Chest: Symmetric LUNGS: Other (diminished) Heart: RRR (SR) Abdomen: Soft N/T Extremities: No Calf Tenderness Neurology: alert, oriented, follow commands Assessment Assessment 1. Traumatic fall. slipped on ice. multiple right rib fractures 2. Alcoholism 3. Hypertension; noncompliance with antihypertensive therapy. BP better 4. Depression, anxiety, bipolar 5. Arrhythmia; one episode of 8-beat NSVT noted overnight on tele. 6. Hypomagnesemia: resolved 7. Arrhythmia: SB mainly while asleep otherwise maintaining.lowest 39. SR. Lone brief episode of possible abberant AFIB Metabolic issues contributing. No pauses. EF and WM normal Recommendations 1. Recommend MCOT as outpt 2. No AV gita blocking agents 3. Continue with current BP regimen 4. ETOH and smoking cessation 5. Follow up as an outpt IVELISSE FERNANDES APRN Sep 02, 2019 12:14
--- NOTE | 2019-09-02 14:00 | NUR ---
Discharge Note: HILARIA AYON J[facility] Discharge instructions and discharge home medications reviewed with patient and a copy given. All questions have been answered and understanding verbalized. The following instructions and handouts were given: Take home meds as instructed, lortab prescription given to patient. Wound care daily. Apply triple antibiotic BID as instructed. Avoid alcohol. Attend AA meetings. Avoid heavy lifting. Handout on rib fracture, alcohol intoxication and fall precautions. Follow up with PCP in 3 to 5 days. FF up with cardiology re out patient cardiac rhythm monitoring. Discontinued lines and drains: peripheral IV intact, patient tolerated removal, no complications noted. Patient discharged to home with self care accompanied by the patient's brother at 1330.
== END 2019-09-02 14:13 | disposition home or self-care (01) | DRG 184 ==
LOC: ER 00:39 → 6 SOUTH 01:45
PROVIDERS: ADMIT Internal Medicine; ATTEND Internal Medicine
DX: S22.41XA Multiple fractures of ribs, right side, initial encounter for closed fracture (principal); R45.851 Suicidal ideations; I47.2 Ventricular tachycardia; J44.1 Chronic obstructive pulmonary disease with (acute) exacerbation; J81.1 Chronic pulmonary edema; F10.20 Alcohol dependence, uncomplicated; B19.20 Unspecified viral hepatitis C without hepatic coma; E83.42 Hypomagnesemia; F10.229 Alcohol dependence with intoxication, unspecified; F12.90 Cannabis use, unspecified, uncomplicated; F17.210 Nicotine dependence, cigarettes, uncomplicated; F31.9 Bipolar disorder, unspecified; F41.9 Anxiety disorder, unspecified; I11.9 Hypertensive heart disease without heart failure; S00.93XA Contusion of unspecified part of head, initial encounter; W00.0XXA Fall on same level due to ice and snow, initial encounter; Y90.8 Blood alcohol level of 240 mg/100 ml or more; Z79.899 Other long term (current) drug therapy; Z82.5 Family history of asthma and other chronic lower respiratory diseases; Z91.14 Patient's other noncompliance with medication regimen; Z91.19 Patient's noncompliance with other medical treatment and regimen
CPT/HCPCS: 36415; 70450; 71046; 71260; 72125; 80048; 80053; 80307; 80329; 81001; 82553; 83690; 83735; 83880; 84484; 85007; 85025; 85610; 87086; 90471; 90715; 93005; 93306; 96365; 96366; 96368; 96375; G0480; J2060; J3475; J7030; J7512; 99285-25; G0378

== ENCOUNTER 2019-09-11 01:46 | Emergency (ER) | payer OTHER ==
[~2019-09-11] VITALS: Ht 162.6 cm; Wt 74.4 kg
[~2019-09-11 01:46] MED LIST: AMLO5TAB10 PO; DOXY100T PO; Folic Acid PO; GABA300C18 PO; IBUP-1027 PO; LACT1CAP19 PO; LIDO700A21 TD; LISI-338 PO; LORA2ORA2 PO; MULT1TAB90 PO; NEOM1OIN6 TP; PANT40TA77 PO; PRED20TA PO; PROP10TA PO; THIA100T22 PO; TRAZ-123 PO; VENL75TA PO
[2019-09-11 01:47] VITALS: BP 164/78
--- NOTE | 2019-09-11 01:56 | PHYS DOC ---
Past Medical History Past Medical History: Depression, Other Additional Past Medical Histor: HEP C Past Surgical History: No Surgical History Alcohol Use: Heavy Drug Use: Marijuana Adult General Chief Complaint Chief Complaint: LOWER EXT PAIN HPI HPI 59-year-old male presents to the emergency department via EMS with complaints of bilateral knee pain. Patient states he fell couple days ago down 17 stairs describes knee pain since that time. He describes it 10 pain difficulty with ambulation secondary to the pain. Patient does smoke, he states he drank 2 beers approximately 4 PM today. Blood pressure 164/78, heart rate 78, patient afebrile. Patient has obvious bruising appreciated to his knees, no concern for effusion. Weight bearing makes knee pain worse. Patient denies any chest pain, short of breath, nausea, vomiting, headache or visual change Review of Systems Review of Systems Constitutional: Denies fever or chills [] Respiratory: Denies cough or shortness of breath [] Cardiovascular: No additional information not addressed in HPI [] GI: Denies abdominal pain, nausea, vomiting, bloody stools or diarrhea [] Musculoskeletal: bilateral knee pain Integument: Denies rash or skin lesions [] Neurologic: Denies headache, focal weakness or sensory changes [] All other systems were reviewed and found to be within normal limits, except as documented in this note. Current Medications Current Medications Current Medications Medications (Trade) Dose Ordered Sig/Nolan Start Time Stop Time Status Last Admin Dose Admin Ketorolac Tromethamine (Toradol Im) 60 mg 1X ONCE 09/11/19 02:15 09/11/19 02:16 Allergies Allergies Allergies Coded Allergies Type Severity Reaction Last Updated Verified No Known Medication Allergies Allergy Unknown 08/30/19 Yes acetaminophen Adverse Reaction Intermediate has hepatitis C 09/18/14 Yes Physical Exam Physical Exam Constitutional: Well developed, well nourished, no acute distress, non-toxic appearance. [] Cardiovascular:Heart rate regular rhythm, no murmur [] Lungs & Thorax: Bilateral breath sounds clear to auscultation [] Abdomen: Bowel sounds normal, soft, no tenderness, no masses, no pulsatile masses. [] Skin: Warm, dry, no erythema, no rash. [] Back: No tenderness, no CVA tenderness. [] Extremities: No tenderness, no edema, TTP bilateral knee, bruising appreciated however no concern for effusion, negative anterior drawer test [] Neurologic: Alert and oriented X 3, no focal deficits noted. [] Psychologic: Affect normal, judgement normal, mood normal. [] EKG EKG [] Radiology/Procedures Radiology/Procedures Bilateral knee xray without evidence of acute fracture appreciated (wet read)[] Course & Med Decision Making Course & Med Decision Making Pertinent Labs and Imaging studies reviewed. (See chart for details) []59-year-old male presents to the emergency department via EMS with complaints of bilateral knee pain. Patient states he fell couple days ago down 17 stairs describes knee pain since that time. He describes it 10 pain difficulty with ambulation secondary to the pain. Patient does smoke, he states he drank 2 beers approximately 4 PM today. Blood pressure 164/78, heart rate 78, patient afebrile. Patient has obvious bruising appreciated to his knees, no concern for effusion. Weight bearing makes knee pain worse. Patient denies any chest pain, short of breath, nausea, vomiting, headache or visual change xray negative for acute process Toradol 60mg IM x 1 Recommend dc home and follow up with PCP as needed Return precautions provided Dragon Disclaimer Dragon Disclaimer This electronic medical record was generated, in whole or in part, using a voice recognition dictation system. Departure Departure Impression: Primary Impression: Knee pain, bilateral Disposition: 01 HOME, SELF-CARE Condition: STABLE Referrals: NO PCP (PCP) Patient Instructions: Knee Pain, [id number] Additional Instructions: Recommend follow up with PCP 3 - 5 days Return to the ER with worsening symptoms, intractable pain, fever, altered mental status Motrin as needed for pain Xray negative for acute fracture or effusion Toradol 60mg IM provided for pain Problem Qualifiers Primary Impression: Knee pain, bilateral Chronicity: acute Qualified Codes: M25.561 - Pain in right knee; M25.562 - Pain in left knee JACKELIN BOLAÑOS MD Sep 11, 2019 01:56
[2019-09-11] MEDS ORDERED: KETOROLAC 60 MG/2 ML VIAL. IM ONE (02:15)
--- NOTE | 2019-09-11 07:51 | RAD ---
Examination: KNEE BILAT 3V History: Fall, knee pain Comparison/Correlation: None Findings: 3 images of the right knee and 3 images of the left knee were obtained. Joint spaces are normal. No acute fracture or bony destruction. Soft tissues are unremarkable. No joint effusion. No significant degenerative changes for patient's age. Vascular calcification especially involving the distal thigh regions noted. Impression: No fracture or degenerative change. Electronically signed by: Dario Edwards MD (09/11/2019 7:48 AM) [facility]
== END 2019-09-11 02:20 | disposition home or self-care (01) ==
LOC: ER 01:46
DX: M25.561 Pain in right knee (principal); M25.562 Pain in left knee; F10.20 Alcohol dependence, uncomplicated; Y90.9 Presence of alcohol in blood, level not specified; Z88.6 Allergy status to analgesic agent
CPT/HCPCS: 73562; 96372; 99284; J1885